=== PATIENT | female | born 1970 | race Caucasian/White ===

== ENCOUNTER → 2018-08-31 11:56 | Outpatient (CLI) | payer OTHER, SELFPAY ==
[2018-08-31 15:51] LABS: Absolute Neutrophil Count 3.5 X10^3/uL (2.0-7.7); Basophil# 0.02 X10^3/uL; Basophil% 0.3 % (0-1); Eosinophil# 0.19 X10^3/uL; Eosinophils% 3.1 % (0-5); Hemoglobin 13.6 g/dl (12.0-15.0); Lymphocyte % 32.7 % (19-41); Mean Corp Hgb Conc 32.4 g/gl (32-36); Mean Corpuscular Hgb 31.2 pg (27.0-32.0); Mean Corpuscular Volume 96.3 fL (81-99); Mean Platelet Vol. 10.7 fl (6.2-12.0); Monocyte% 6.5 % (0-10); Neutrophil # 3.51 X10^3/uL (2.7-7.7); Neutrophil % 57.4 % (47-70); Platelet Count 381 K/mm3 (150-450); RBC Distribution Width CV 12.7 % (11.6-14.6); RBC Distribution Width SD 43.9 fl (35.1-43.9); Red Blood Count 4.36 M/mm3 (4.2-5.4); White Blood Count 6.1 K/mm3 (4.4-11.0)
[2018-08-31 15:56] LABS: POSITIVE COUNT NO; POSITIVE DIFFERENTIAL NO; POSITIVE MORPHOLOGY NO
[2018-08-31 16:16] LABS: ALB/GLOB Ratio 0.8 RATIO (0.9-2.4); AST(SGOT) 19 U/L (15-37); Alanine Aminotransfer ALT/SGPT 20 U/L (13-56); Albumin, Serum 3.5 g/dL (3.2-5.0); Alkaline Phosphatase 117 U/L (45-117); Anion Gap 9 (5-15); BUN 11 mg/dL (7-18); BUN/Creat Ratio 13.1 RATIO (10-20); Chloride 102 mmol/L (98-107); Creatinine, Serum 0.84 mg/dL (0.55-1.02); EST Glomerular Filtration Rate 76 mL/min (>60); Est Glom Filt Rate - Afr Amer 92 mL/min (>60); Globulin 4.5 g/dL (2.2-4.2); Glucose 63 mg/dL (74-106); Sodium Level 138 mmol/L (136-145); Thyroid Stim Hormone (TSH) 2.47 uIU/mL (0.358-3.74)
[2018-09-04 16:07] LABS: Clam <0.10 kU/L (Class 0); Codfish <0.10 kU/L (Class 0); Corn 0.19 kU/L (Class 0/I); Egg, White 0.23 kU/L (Class 0/I); Milk (Cow) 0.53 kU/L (Class I); Peanut 0.16 kU/L (Class 0/I); SCALLOP <0.10 kU/L (Class 0); Shrimp <0.10 kU/L (Class 0); Soybean <0.10 kU/L (Class 0); Walnut, (Food) <0.10 kU/L (Class 0)
== END ==
PROVIDERS: Family Provider Family Medicine; PCP Family Medicine; Visit Provider Family Medicine
DX: R10.9 Unspecified abdominal pain (principal); K29.70 Gastritis, unspecified, without bleeding; R79.89 Other specified abnormal findings of blood chemistry; T78.40XA Allergy, unspecified, initial encounter
CPT/HCPCS: 36415; 80053; 84443; 85025; 86003

== ENCOUNTER → 2019-04-10 16:12 | Outpatient (CLI) | payer BC, SELFPAY ==
--- NOTE | 2019-04-10 16:24 | BI_ITS ---
MAMMOGRAPHY - BILATERAL SCREENING REASON FOR EXAM: Female, 49 years old. Routine annual screening examination. PERTINENT HISTORY: Non-contributory. TECHNIQUE: Digital bilateral breast kisha (3D mammographic acquisition) in the CC and MLO projections. 2-D mediolateral oblique (MLO) and craniocaudad (CC) views of both breasts were obtained. CAD: Full Field Digital Mammography with Computer Added Detection was performed. COMPARISON: Comparison is made with prior study dated December 07, 2016 and January 07, 2015. FINDINGS: Breast Composition: The breasts are heterogeneously dense, which may obscure small masses. There are no dominant masses or suspicious calcifications. Stable small bilateral axillary lymph nodes. No other significant abnormalities are identified. There has been no significant change since the prior study. BI/SCREEN MAMM (CAD) W/KISHA BILAT IMPRESSION: Stable bilateral screening mammogram. Yearly follow-up mammogram recommended. (A) ASSESSMENT CATEGORY: BIRADS Category 2: Benign. A letter regarding these results will be sent to the patient by the facility within 30 days. Approximately 10% of breast cancers are not detected by mammography. A normal mammogram should not delay biopsy of a clinically suspicious abnormality. [id number] Electronically Signed: Maciej Jensen, at 8:58 EDT , Service support ,
== END ==
PROVIDERS: Family Provider Family Medicine; PCP Family Medicine
DX: Z12.31 Encounter for screening mammogram for malignant neoplasm of breast (principal)
CPT/HCPCS: 77063; 77067

== ENCOUNTER 2020-03-17 07:57 | Day surgery (SDC) | payer OTHER, SELFPAY ==
[2020-03-17 08:15] VITALS: BP 105/74; PULSE 87; RESP 15; TEMP 36.6; O2SAT 100; BMI 27.0
[2020-03-17] MEDS: Lactated Ringers 1,000 ML 100 ML IV (08:28)
--- NOTE | 2020-03-17 08:38 | HP.PCM_ITS ---
History of Present Illness Date of Admission: 03/17/20 The patient is a 50 year old F presents for screening colonoscopy. Patient denies any previous colonoscopy, denies any family history of colon cancer. Patient does have bowel movements daily denies any blood. Denies any chronic abdominal pain nausea or vomiting. Patient is on pantoprazole for reflux she did have an EGD around 2014 and medication does not control her symptoms Past Medical/Surgical History - Planned Operation Planned Operative Procedure/s: cscope open access Date of Operative Procedure: 03/17/20 Permit Signed: No S.O.S: No Is This Patient Having a Total Joint: No - Previous Hospitalizations/Surgeries HX Hospitalizations: No HX of Surgeries: wisdom teeth Any Problems With Anesthesia: Yes - nausea You/Your Family Experience Fever (Hyperthermia) With Anes: No Cholinesterase deficiency: No - Cardiovascular Hx Chest Pain within Last 2 months: No Hx of Irregular Heartbeat and/or Afib: No Hx Heart Attack: No Hx Congestive Heart Failure: No Hx Rheumatic Fever: No Hx Hypertension: No Hx Internal Defibrillator: No Hx Pacemaker: No Hx Cardiac Catheterization: No Hx Cardiac Surgery/Stents/Etc.: No - . Hx Stress Test: Yes - 2005 HX Edema: No Hx Pain in Legs when Walking/Leg Cramps: No - Respiratory Chronic Cough: No HX of Shortness of Breath: No Hoarseness: No Hx Chronic Obstructive Pulmonary Disease (COPD): No Hx Asthma: No Hx Emphysema: No Hx Sleep Apnea: No Hx Oxygen Use at Home: No Hx Respiratory Tract Infection/Cold (presently): No Do You Snore Loudly (louder than talking or can be heard): No Do You Often Feel Tired/ Fatigued/ Sleepy Dring Daytime?: Yes Has Anyone Observed You Stop Breathing During Sleep?: No Result (for STOP score): Negative Hx Smoking: No Smoking Status: Never smoker - Gastrointestinal Hx Gastroesophageal Reflux: Yes Controlled With Meds: Yes Hx Gastrointestinal Disorders: No Hx Gastrointestinal Bleed: No Hx Ulcer: No Hx Hiatal Hernia: No Difficulty Chewing/Swallowing: No Recent Onset of Swallowing Problems: No Special diet followed at home: No Hx Unplanned Weight Loss of 20#: No HX Unplanned Weight Gain of 20#: No - Neurological Hx Seizures: No HX Syncope/Blackout Spells/Unconsciousness: No Hx CVA/Stroke: No Hx Transient Ischemic Attacks (TIA): No Hx Multiple Sclerosis: No Hx Parkinson's Disease: No Hx Head/Neck Injury: No Hx Headaches: No Hx Back Injury/Pain: No Recent Onset of Speech Difficulty: No Restless Legs: No Does patient have nerve stimulator: No Patient instructed to have device shut off: No Rep notified?: No - Blood Disorder Hx Leukemia: No Bleeding Tendencies: No Hx Deep Vein Thrombosis: No Hx High Cholesterol: No Blood Transmitted Disease: No Hx Hepatitis: No Hx Cirrhosis: No Hx Anemia: No Hx Blood Disorders: No - Reproduction : No Is Patient Lactating: No Hx Hysterectomy: No Hx Tubal Ligation: No Are You Post Menopause: No Pt Instructed Not To Have Any Sex From Now Until Surgery: No - Genitourinary Hx Renal Disease: No Hx Dialysis: No - Musculoskeletal Hx Arthritis: No Hx Rheumatoid Arthritis: No Hx Gout: No Recent Onset of an Orthopedic Problem: No - Endocrine Hx Diabetes: No Thyroid Disease: No Hx Steroid Therapy: No - Psycho/Social Hx Substance Use: No Hx Alcohol Use: Yes - occ Hx Anxiety: Yes - on med Hx Depression: Yes - on med Mental Illness: No Hx Dementia: No - Miscellaneous Hx Cancer: No Recent Exposure to Contagious Disease: No Active MRSA: No Hx of C-Diff: No Any Loose Teeth: No Allergies aspirin Allergy (Verified 03/17/20 08:09) Swelling honey Allergy (Verified 03/17/20 08:09) Swelling ibuprofen [From Motrin] Allergy (Verified 03/17/20 08:09) Swelling strawberry Allergy (Verified 03/17/20 08:09) Swelling Maternal No pertinent history - Discharge Is Pt Admitted From a Intermediate, or a Detention: No Who Could Help: family After D/C, Where Do you Plan to Go: Return Home - Physical Exam Vitals/I&O's: Vital Signs Temp Pulse Resp BP Pulse Ox 97.8 F 87 15 105/74 100 03/17/20 08:15 03/17/20 08:15 03/17/20 08:15 03/17/20 08:15 03/17/20 08:15 Oxygen Delivery Method Room Air Weight: 152 lb 12.485 oz Body Mass Index (BMI) 27.0 General: Alert, Oriented x3, Cooperative, No apparent distress HEENT: Atraumatic Lungs: Normal air movement Cardiovascular: Regular rate Abdomen: Soft, Non Tender, Non-Distended Extremities: No clubbing, No cyanosis, No edema Neurological: Cranial nerves II-XII grossly intact Psych/Mental Status: Normal Affect Current Medications Lactated Ringer's () 1,000 mls @ 100 mls/hr IV .Q10H CARMEN Last Admin: 03/17/20 08:28 Dose: 100 mls/hr Documented by: Assessment/Plan All Active Problems Abnormal CT of the abdomen (Acute) Epigastric abdominal pain (Acute) Nausea & vomiting (Acute) 50-year-old female for screening for colon cancer Surgery Risks - Colonoscopy I discussed with the patient the risks of the procedure: Yes Risks Include but are not Limited To: Risks include but are not limited to: Bleeding, perforation requiring further surgery, inability to complete colonoscopy requiring barium enema. Patient no further questions this time.
[2020-03-17 09:15] VITALS: BP 105/74; BP 111/86; PULSE 79; RESP 16; TEMP 36.5; O2SAT 99
--- NOTE | 2020-03-17 09:16 | OP.CCLET_ITS ---
03/17/2020 Krystal Kelly [address] [place] [address] Re : Colonoscopy procedure for Gloria Mellwood Dear Dr. Kelly This procedure was performed on Tuesday, March 17, 2020. My impressions and recommendations are as follows: Impressions : - Hemorrhoids found on perianal exam. - The entire examined colon is normal on direct and retroflexion views. - Diverticulosis in the sigmoid colon. - No specimens collected. Recommendations : - Discharge patient to home [Means]. - High fiber diet. - Continue present medications. - Discharge patient to home. - Repeat colonoscopy in 10 years for screening purposes. My findings are described in the full procedure note, which is enclosed. If I can be of further assistance, please feel free to contact me at Doctor phone number(s): , Work: . Sincerely, MD Beena Banuelos MD 03/17/2020 9:15:50 AM This report has been signed electronically.
--- NOTE | 2020-03-17 09:16 | OP.COLON_ITS ---
Patient Name: Gloria Mayes Procedure Date: 03/17/2020 8:49 AM Date of : 1970 Age: 50 Procedure: Colonoscopy Indications: Screening for colorectal malignant neoplasm Providers: Beena Reyes MD Referring MD: Beena Reyes MD Medicines: Monitored Anesthesia Care Patient Profile: This is a 50 year old female. Last Colonoscopy: none. The patient's first colonoscopy is today. Complications: No immediate complications. Procedure: Pre-Anesthesia Assessment: - Prior to the procedure, a History and Physical was performed, and patient medications and allergies were reviewed. The patient's tolerance of previous anesthesia was also reviewed. The risks and benefits of the procedure and the sedation options and risks were discussed with the patient. All questions were answered, and informed consent was obtained. Prior Anticoagulants: The patient has taken no previous anticoagulant or antiplatelet agents. ASA Grade Assessment: Per anesthesia. After reviewing the risks and benefits, the patient was deemed in satisfactory condition to undergo the procedure. After I obtained informed consent, the scope was passed under direct vision. Throughout the procedure, the patient's blood pressure, pulse, and oxygen saturations were monitored continuously. The Colonoscope was introduced through the anus and advanced to the cecum, identified by the appendiceal orifice, ileocecal valve and palpation. The colonoscopy was performed without difficulty. The patient tolerated the procedure well. The quality of the bowel preparation was good. Scope In: 8:57:02 AM Scope Withdrawal Time 0 hours 7 minutes 2 seconds Scope Out: 9:11:22 AM Total Procedure Duration Time 0 hours 14 minutes 20 seconds Findings: Hemorrhoids were found on perianal exam. The entire examined colon appeared normal on direct and retroflexion views. A single small-mouthed diverticulum was found in the sigmoid colon. Impression: - Hemorrhoids found on perianal exam. - The entire examined colon is normal on direct and retroflexion views. - Diverticulosis in the sigmoid colon. - No specimens collected. Recommendation: - Discharge patient to home [Means]. - High fiber diet. - Continue present medications. - Discharge patient to home. - Repeat colonoscopy in 10 years for screening purposes. Procedure Code(s): --- Professional --- G0121, PT, Colorectal cancer screening; colonoscopy on individual not meeting criteria for high risk Diagnosis Code(s): --- Professional --- Z12.11, Encounter for screening for malignant neoplasm of colon K64.9, Unspecified hemorrhoids K57.30, Diverticulosis of large intestine without perforation or abscess without bleeding CPT copyright 2017 [employer]. All rights reserved. The codes documented in this report are preliminary and upon metal machinist review may be revised to meet current compliance requirements. MD Beena Banuelos MD 03/17/2020 9:15:50 AM This report has been signed electronically. Number of Addenda: 0 Note Initiated On: 03/17/2020 8:49 AM
[2020-03-17 09:20] VITALS: BP 105/74; BP 112/62; PULSE 79; RESP 16; O2SAT 100
[2020-03-17 09:25] VITALS: BP 105/74; BP 108/72; PULSE 76; RESP 16; O2SAT 100
[2020-03-17 09:30] VITALS: BP 104/68; BP 105/74; PULSE 75; RESP 16; TEMP 36.3; O2SAT 100
[2020-03-17 10:03] VITALS: BP 105/74
== END 2020-03-17 10:09 | disposition home or self-care (01) ==
LOC: EN 08:00 → AC 08:01
PROVIDERS: PCP Family Medicine; Referring Provider Surgery; Visit Provider Surgery
PROC: 0DJD8ZZ Inspection of Lower Intestinal Tract, Via Natural or Artificial Opening Endoscopic (ICD-10-PCS; CPT 45378; principal; 2020-03-17 08:50)
DX: Z12.11 Encounter for screening for malignant neoplasm of colon (principal); K57.30 Diverticulosis of large intestine without perforation or abscess without bleeding; K64.9 Unspecified hemorrhoids; K21.9 Gastro-esophageal reflux disease without esophagitis; F41.9 Anxiety disorder, unspecified; F32.9 Major depressive disorder, single episode, unspecified; Z79.899 Other long term (current) drug therapy
CPT/HCPCS: 45378; J7120; J2405

== ENCOUNTER → 2020-04-17 | Outpatient (CLI) | payer OTHER, SELFPAY ==
--- NOTE | 2020-04-17 11:42 | BI_ITS ---
MAMMOGRAPHY - BILATERAL SCREENING REASON FOR EXAM: Female, 50 years old. Routine annual screening examination. PERTINENT HISTORY: Non-contributory. TECHNIQUE: Digital bilateral breast kisha (3D mammographic acquisition) in the CC and MLO projections. 2-D mediolateral oblique (MLO) and craniocaudad (CC) views of both breasts were obtained. CAD: Full Field Digital Mammography with Computer Added Detection was performed. COMPARISON: Comparison is made with prior study dated April 10, 2019 and December 07, 2016. FINDINGS: Breast Composition: The breasts are heterogeneously dense, which may obscure small masses. There are no dominant masses or suspicious calcifications. Stable benign-appearing bilateral axillary lymph nodes. No other significant abnormalities are identified. There has been no significant change since the prior study. BI/SCREEN MAMM (CAD) W/KISHA BILAT IMPRESSION: Stable bilateral screening mammogram. Yearly follow-up mammogram recommended. (A) ASSESSMENT CATEGORY: BIRADS Category 2: Benign. A letter regarding these results will be sent to the patient by the facility within 30 days. Approximately 10% of breast cancers are not detected by mammography. A normal mammogram should not delay biopsy of a clinically suspicious abnormality. [id number] Electronically Signed: Mcaiej Jensen, at 13:33 EDT , Service support ,
== END | disposition home or self-care (01) ==
LOC: OPBI 11:37
PROVIDERS: PCP Family Medicine
DX: Z12.31 Encounter for screening mammogram for malignant neoplasm of breast (principal)
CPT/HCPCS: 77063; 77067

== ENCOUNTER → 2020-12-01 17:25 | Outpatient (CLI) | payer OTHER, SELFPAY | PROVIDERS: PCP Family Medicine; Referring Provider Family Medicine; Visit Provider Family Medicine | DX: Z20.822 Contact with and (suspected) exposure to COVID-19 (principal) | CPT/HCPCS: 87635; C9803; U0003 ==

== ENCOUNTER 2022-01-12 16:12 | Outpatient (CLI) | payer BC, SELFPAY ==
--- NOTE | 2022-01-12 16:19 | BI_ITS ---
MAMMOGRAPHY - BILATERAL SCREENING REASON FOR EXAM: Female, 51 years old. Routine annual screening examination. PERTINENT HISTORY: Non-contributory. TECHNIQUE: Digital bilateral breast kisha (3D mammographic acquisition) in the CC and MLO projections. 2-D mediolateral oblique (MLO) and craniocaudad (CC) views of both breasts were obtained. CAD: Full Field Digital Mammography with Computer Added Detection was performed. COMPARISON: Comparison is made with prior examination dated 04/17/2020 and 04/10/2019. FINDINGS: Breast Composition: The breasts are heterogeneously dense, which may obscure small masses. There are no dominant masses or suspicious calcifications. Stable benign-appearing bilateral axillary lymph nodes. No other significant abnormalities are identified. There has been no significant change since the prior study. BI/SCRN MAMM (CAD)W/KISHA BILAT IMPRESSION: Stable bilateral screening mammogram. Yearly follow-up mammogram recommended. (A) ASSESSMENT CATEGORY: BIRADS Category 2: Benign. A letter regarding these results will be sent to the patient by the facility within 30 days. Approximately 10% of breast cancers are not detected by mammography. A normal mammogram should not delay biopsy of a clinically suspicious abnormality. [id number] Electronically Signed: Maciej Jensen MD at 8:33 EST ,
== END 2022-01-12 23:59 | disposition home or self-care (01) ==
PROVIDERS: PCP Family Medicine; Visit Provider Specialist
DX: Z12.31 Encounter for screening mammogram for malignant neoplasm of breast (principal)
CPT/HCPCS: 77063; 77067

== ENCOUNTER 2023-01-18 16:10 | Outpatient (CLI) | payer BC, SELFPAY ==
--- NOTE | 2023-01-18 16:12 | BI_ITS ---
MAMMOGRAPHY - BILATERAL SCREENING 3-D TOMOSYNTHESIS REASON FOR EXAM: Female, 52 years old. SCREENING PERTINENT HISTORY: No significant family history. TECHNIQUE: 2-D mammograms and 3-D Tomosynthesis of the breast (s) were performed. CAD was performed. COMPARISON: None. FINDINGS: The breast composition is heterogeneously dense that can obscure small breast masses. Scattered benign calcifications are seen. No dense spiculated masses or suspicious microcalcifications are identified. . There is no skin thickening or retraction. There is a more conspicuous asymmetry in the central posterior left breast along with architectural distortion since the previous study of 2019 that needs further evaluation with spot compression views and ultrasound. Right breast is stable and unchanged. BI/SCRN MAMM (CAD)W/KISHA BILAT IMPRESSION: Subtle change in architecture in the left breast with new asymmetric density in the central posterior left breast seen best on the MLO views. Further evaluation with spot compression views and ultrasound recommended ASSESSMENT CATEGORY: BIRADS Category 0: Incomplete. Need additional imaging evaluation as above. A letter regarding these results will be sent to the patient by the facility within 30 days. FOLLOW UP RECOMMENDATION: Additional imaging recommended as above. (E) Approximately 10% of breast cancers are not detected by mammography. A normal mammogram should not delay biopsy of a clinically suspicious abnormality. Electronically Signed: Teto Santos MD at 8:19 EDT ,
== END 2023-01-18 23:59 | disposition home or self-care (01) ==
PROVIDERS: PCP Family Medicine; Visit Provider Specialist
DX: Z12.31 Encounter for screening mammogram for malignant neoplasm of breast (principal)
CPT/HCPCS: 77063; 77067

== ENCOUNTER → 2023-01-27 | Outpatient (CLI) | payer BC, SELFPAY ==
--- NOTE | 2023-01-27 14:20 | BI_ITS ---
MAMMOGRAPHY - UNILATERAL DIAGNOSTIC: LEFT BREAST REASON FOR EXAM: Female, 52 years old. Abnormal screening mammogram. PERTINENT HISTORY: Non-contributory. TECHNIQUE: Compression spot views of the left breast in the mediolateral oblique and craniocaudad projections were obtained. CAD: Full Field Digital Mammography with Computer Added Detection was performed. COMPARISON: Comparison is made with prior study dated January 18, 2023. FINDINGS: Breast Composition: The breasts are heterogeneously dense, which may obscure small masses. Persistent focal architectural distortion is seen in the upper lateral aspect of the left breast. Correlation with ultrasound is recommended. No other significant abnormalities are identified. BI/DIAG MAMM W/CAD, UNILAT IMPRESSION: Persistent focal architectural distortion in the upper lateral aspect of the left breast. Correlation with ultrasound is recommended. ASSESSMENT CATEGORY: BIRADS Category 0: Incomplete. Need additional imaging evaluation. A letter regarding these results will be sent to the patient by the facility within 30 days. Approximately 10% of breast cancers are not detected by mammography. A normal mammogram should not delay biopsy of a clinically suspicious abnormality. Electronically Signed: Maciej Jensen MD at 15:13 EDT ,
--- NOTE | 2023-01-27 14:20 | US_ITS ---
STUDY: ULTRASOUND BREAST - LEFT REASON FOR EXAM: Female, 52 years old. Abnormal screening and diagnostic mammogram. TECHNIQUE: Axial and longitudinal images of the LEFT breast were performed with a high resolution ultrasound transducer. # OF IMAGES: 29 COMPARISON: Comparison is made with prior mammogram done earlier in the day. FINDINGS: LEFT Breast: The upper outer quadrant of the left breast was examined with ultrasound. No suspicious abnormality is seen. A repeat mammogram of the left breast is recommended in 4 months. US/Breast Limited Unilateral IMPRESSION: Unremarkable sonogram. ASSESSMENT CATEGORY: BIRADS Category 3: Probably Benign - Short-Interval Follow-up Suggested. A letter regarding these results will be sent to the patient by the facility within 30 days. Electronically Signed: Maciej Jensen MD at 15:47 EDT ,
== END | disposition home or self-care (01) ==
PROVIDERS: PCP Family Medicine; Visit Provider Specialist
DX: R92.8 Other abnormal and inconclusive findings on diagnostic imaging of breast (principal)
CPT/HCPCS: 76642; 77065

== ENCOUNTER 2023-05-27 20:57 | Emergency (ER) | payer BC, SELFPAY ==
[2023-05-27 20:58] VITALS: BP 103/60; PULSE 89; RESP 18; TEMP 37; O2SAT 98; BMI 28.8
--- NOTE | 2023-05-27 21:30 | CT_ITS ---
INDICATION: head trauma EXAMINATION: CT BRAIN - CT Head or Brain W/O Contrast Injection TECHNIQUE: Multiple axial images were obtained of the head without intravenous contrast. A radiation dose optimization technique was used for this scan. IV Contrast dosage and agent: None. RADIATION DOSAGE (If Supplied By Facility): CTDIvol = ( 44.99 ) mGy, DLP = ( 796.11 ) mGycm COMPARISON: FINDINGS: BRAIN: No acute bleed. No edema. Reeder-white matter differentiation is maintained. VENTRICLES AND SULCI: Not dilated. EXTRA-AXIAL: No hemorrhage, fluid collection, or mass. CALVARIUM / SKULL BASE: Unremarkable. FACE/SINUSES: Unremarkable. SOFT TISSUES: Swelling in the left posterior scalp. CT/Brain/Head without Contrast IMPRESSION: Scalp contusion. No evidence of acute intracranial injury. Electronically Signed: Tracy Mendoza MD at 22:38 EDT ,
--- NOTE | 2023-05-27 21:54 | EX.ED.GENINJ ---
HPI History of Present Illness Chief Complaint: Head Injury Informant: patient and friend Onset/Context/Timing Onset: Today and Hours Mechanism/Context: Blunt Injury and Fall Current Severity: Moderate Maximum Severity: Moderate Associated Symptoms Associated Symptoms: Negative for Parasthesias, Weakness, Loss of function, Inability to ambulate, Loss of consciousness or Amnesia Narrative Narrative: 73-year-old female was at a local [email or web address]. She was walking fell got back up fell backwards struck her head. Reportedly no LOC. The person with her though did not witness the fall. She has had pain in the back of her head and nausea and vomiting. Denies other injuries other than her tailbone. She is not on blood thinners. Prior similar symptoms: No Recent Illness/Hospitalization: No PFSH PFSH Medical History Anxiety GERD (gastroesophageal reflux disease) Home Medications [facility] - Day Tablet 1 tab PO DAILY 07/01/15 [History Last Taken 03/17/20 06:30] escitalopram oxalate 20 mg tablet 20 mg PO QHS 03/13/20 [History Last Taken Unknown] pantoprazole 20 mg tablet,delayed release 40 mg PO QHS 03/13/20 [History Last Taken Unknown] ondansetron 4 mg disintegrating tablet 4 mg PO Q6H PRN nausea and vomiting #10 tabs 05/27/23 [Rx Last Taken Unknown] Allergy/AdvReac Type Severity Reaction Status Date / Time aspirin Allergy Swelling Verified 05/27/23 21:01 honey Allergy Swelling Verified 05/27/23 21:01 ibuprofen [From Motrin] Allergy Swelling Verified 05/27/23 21:01 strawberry Allergy Swelling Verified 05/27/23 21:01 Social History Smoking Status: Never smoker ROS ROS ED ROS Narrative Posterior head pain. Nausea and vomiting. Review of Systems ROS Unobtainable: Denies due to encephalopathy Constitutional Constitutional ED: Denies chills or fever(s) Eyes Eyes: Denies blurry vision ENT ENT ED: Denies ear pain Cardiovascular Cardiovascular: Denies chest pain Respiratory/Chest Respiratory/Chest: Denies cough or dyspnea Gastrointestinal Gastrointestinal: Reports nausea and vomiting; Denies abdominal pain Genitourinary Genitourinary ED: Denies dysuria or hematuria Musculoskeletal Musculoskeletal: Denies arthralgias Integumentary Denies abscess Neurologic Neurologic: Reports headache(s) Psychiatric Psychiatric: Denies anxiety or depression Endocrine Endocrinology: Denies cold intolerance Hematologic/Lymphatic Hematologic/Lymphatic: Denies easy bleeding Allergic/Immunologic Allergic/Immunologic ED: Denies mouth swelling or tongue swelling EXAM Physical Exam Narrative Exam Narrative: 53-year-old female lying in bed. Friend at bedside. Patient is actively nausea and vomiting. HEENT exam gives reactive light. Moist mucous membranes. Posterior scalp as a moderate size hematoma about the size of a golf ball. No laceration. No blood. C-spine nontender. Trachea midline. Lungs are clear. Heart regular rhythm no murmur. Chest wall nontender. Abdomen soft nontender. Normal bowel sounds no peritoneal signs. Pelvic girdle intact. Moving all 4 extremities. Nontender no deformity. Back cervical, thoracic and proximal lumbar spine are nontender tailbone is mildly tender. No lacerations. No bruises. Neurologically she is awake and alert. Moving all 4 extremities. Answering questions and following commands. Const Vital Signs: 05/27/23 20:58 05/27/23 21:02 Temperature 98.6 F Temperature Source Temporal Pulse Rate 89 Respiratory Rate 18 Respiratory Effort Normal Non-Labored Blood Pressure 103/60 Blood Pressure Mean 74 Pulse Ox 98 Oxygen Delivery Method Room Air Positive well nourished and well developed; Negative for obese, cachectic, contractures or unkempt General Appearance ED: well developed and NAD; Negative for unkempt, cachectic or contractures Nutritional Appearance: Negative for cachectic or obese HEENT HEENT Narrative: Left posterior scalp hematoma. No laceration. trauma and tenderness; Negative for atraumatic Eyes PERRL and EOMs intact bilaterally General Eye ED: Negative for other Neck full ROM General: Negative for tenderness Chest Wall inspection of chest normal and palpation of chest normal Breast/Axilla Inspection: Negative for other Resp normal respiratory effort and clear to auscultation bilaterally Effort and Inspection: Negative for pain with movement Auscultation: Negative for rales, rhonchi or wheezes Cardio regular rhythm, S1 normal heart sound, S2 normal heart sound and no murmurs Jugular Venous Distention: Negative for other Palpation: Negative for palpable S3 Rate: regular rate Rhythm: Negative for abnormal rhythm GI normal to inspection, nondistended, normoactive bowel sounds, non-tender, non-distended and no masses Inspection: Negative for abdominal distention Auscultation: normoactive bowel sounds Palpation: soft; Negative for tender Bladder / Kidney Exam: No other Back/Spine normal to inspection and no thoracic nor lumbar tenderness Back/Spine Narrative: Except tailbone tenderness. Thoracic Spine / Upper Back: Negative for thoracic spinal tenderness Extremity normal to inspection General Extremety ED: Negative for deformity, edema or tenderness General Extremity: Negative for deformity or edema Neuro oriented x3, CN's II-XII intact bilaterally, moves all extremities, no focal motor deficits and no sensory deficits noted Surrency Coma Scale: document GCS findings Spontaneous Obeys Commands Oriented 15 Sensorium / Orientation: alert, oriented to person, oriented to place and oriented to time; Negative for orientation impaired, lethargic or stuporous Motor Exam: strength 5/5 throughout Psych mental status grossly normal and thought process normal Appearance: Negative for unkempt Attitude: No agitated Mood & Affect: Negative for depressed, anxious or tearful Skin no rashes or lesions noted, no wounds, skin turgor normal and no jaundice General Skin Exam: Negative for other Rashes: No rashes noted Trauma: Negative for abrasion Wounds: Negative for wounds noted MDM MDM MDM Narrative Medical decision making narrative: 53-year-old female fall x2 head injury with nausea and vomiting. 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 She will be treated with IV Zofran. CAT scan of her head to be obtained to rule out intracranial bleed versus concussion. Repeat exam at 10:30 PM. Patient was given a second dose of nausea medication. She is resting comfortably. We discussed her test results. She will be treated for concussion. Patient doing much better at 12:15 PM. She is awake and alert. Resting comfortably. Nausea is resolved. She will be discharged home. Head injury instructions. Zofran as needed for nausea. Motrin and Tylenol. History & Record Review Discussion w/independent historian: Patient and Friend Lab Data Lab results narrative: Alcohol level is only 7. Labs: Laboratory Results - last 24 hr 05/27/23 21:20 Ethyl Alcohol 7.0 Radiography Diagnostic Testing: Clinical Impression(s) from Imaging Studies Brain CT 05/27/23 21:30 IMPRESSION: Scalp contusion. No evidence of acute intracranial injury. Electronically Signed: Tracy Mendoza MD at 22:38 EDT , CT of the brain shows scalp contusion. No intracranial bleed. Read by the radiologist and reviewed by me. Discharge Plan Triage Chief Complaint: Head Injury ED Provider: Oneil Narayanan Dx/Rx/DC Orders Clinical Impression: Fall, Nausea & vomiting, Head injury, Coccyx contusion Instructions: ED Concussion Prescriptions: New ondansetron 4 mg tablet,disintegrating 4 mg PO Q6H PRN (Reason: nausea and vomiting) Qty: 10 0RF No Action Tri-Leg[facility] - Day Tablet 1 tab PO DAILY Patient Comments: control pantoprazole 20 MG tablet 40 mg PO QHS escitalopram oxalate 20 MG tablet 20 mg PO QHS Primary Care Provider: Krystal Kelly Referrals: Krystal Kelly DO [Primary Care Provider] - 3-5 Days Activity Restrictions/Additional Instructions: Tylenol and Motrin for pain. Zofran as needed for nausea and vomiting. You may swallow it if you are too sick to swallow or let it dissolve underneath your tongue. Follow-up with your doctor to ensure you are improving. Return to the emergency department if you are feeling worse. Disposition Disposition: Home, Self Care
[2023-05-27] MEDS: Ondansetron 4 MG/2 ML Vial IV ×2 (22:03→23:14)
[2023-05-27] MEDS: 0.9% Normal Saline 1,000 ML 999 ML IV (23:13)
[2023-05-28 00:27] VITALS: PULSE 76; RESP 16; O2SAT 98
== END 2023-05-28 00:59 | disposition home or self-care (01) ==
PROVIDERS: Emergency Provider Emergency Medicine; PCP Family Medicine; Visit Provider Emergency Medicine
DX: S06.0X0A Concussion without loss of consciousness, initial encounter (principal); S00.03XA Contusion of scalp, initial encounter; S30.0XXA Contusion of lower back and pelvis, initial encounter; W19.XXXA Unspecified fall, initial encounter
CPT/HCPCS: 70450; 82077; 96361; 96374; 96376; 99285; J7030; J2405

== ENCOUNTER → 2023-06-29 | Outpatient (CLI) | payer BC, SELFPAY ==
--- NOTE | 2023-06-29 14:16 | BI_ITS ---
MAMMOGRAPHY - UNILATERAL DIAGNOSTIC: LEFT BREAST REASON FOR EXAM: Female, 53 years old. Follow-up of left breast focal asymmetry. PERTINENT HISTORY: Non-contributory. TECHNIQUE: Digital unilateral breast robinson (3D mammographic acquisition) in the CC and MLO projections. 2-D mediolateral oblique (MLO) and craniocaudad (CC) views of the left breast was obtained. CAD: Full Field Digital Mammography with Computer Added Detection was performed. COMPARISON: Left breast diagnostic mammogram from 01/27/2023. Left breast screening mammogram from 01/18/2023. Left breast diagnostic ultrasound from 01/27/2023. FINDINGS: Breast Composition: The breast is heterogeneously dense, which may obscure small masses. Persistent focal architectural distortion is again seen in the left upper outer breast and appears unchanged from prior study on both spot compression views and diagnostic mammogram. No other significant abnormalities are identified. There has been no significant change since the prior study. BI/DIAG MAMM W/CAD, UNILAT IMPRESSION: Stable persistent focal architectural distortion in the left breast is favored to represent benign fibroglandular soft tissue. However, additional six-month diagnostic left breast mammogram is recommended to assess stability. Bilateral mammogram with diagnostic spot compression views of the left breast may also be considered as patient will be due for annual screening. Recall Side: Left Breast ASSESSMENT CATEGORY: BIRADS Category 3: Probably Benign - Short-Interval Follow-up Suggested. A letter regarding these results will be sent to the patient by the facility within 30 days. Recommendation: Follow-up 6 month diagnostic left breast mammogram. Bilateral mammogram with diagnostic spot compression views of the left breast may also be considered as patient will be due for annual screening. Approximately 10% of breast cancers are not detected by mammography. A normal mammogram should not delay biopsy of a clinically suspicious abnormality. Electronically Signed: Wild Velásquez DO at 16:03 EDT ,
== END | disposition home or self-care (01) ==
PROVIDERS: PCP Family Medicine; Referring Provider Specialist; Visit Provider Specialist
DX: R92.8 Other abnormal and inconclusive findings on diagnostic imaging of breast (principal)
CPT/HCPCS: 77061; 77065; G0279

== ENCOUNTER → 2023-08-13 | Outpatient (CLI) | payer BC, SELFPAY ==
[2023-08-13 09:54] LABS: Follicle Stimulating Hormone 15.7 mIU/mL
== END | disposition home or self-care (01) ==
LOC: LAB 08:38
PROVIDERS: PCP Family Medicine; Visit Provider Specialist
DX: N95.9 Unspecified menopausal and perimenopausal disorder (principal)
CPT/HCPCS: 36415; 83001

== ENCOUNTER → 2023-10-04 | Outpatient (CLI) | payer BC, SELFPAY ==
[2023-10-11 16:09] LABS: Clam <0.10 kU/L (Class 0); Codfish <0.10 kU/L (Class 0); Corn 0.67 kU/L (Class II); Milk (Cow) 0.54 kU/L (Class I); Peanut 1.14 kU/L (Class II); SCALLOP <0.10 kU/L (Class 0); SESAME SEED 1.05 kU/L (Class II); Shrimp <0.10 kU/L (Class 0); Soybean 0.27 kU/L (Class 0/I); Walnut, (Food) 0.22 kU/L (Class 0/I); Wheat 0.45 kU/L (Class I)
== END | disposition home or self-care (01) ==
LOC: BFHLAB 13:38
PROVIDERS: PCP Nurse Practitioner Family; Visit Provider Nurse Practitioner Family
DX: T78.40XA Allergy, unspecified, initial encounter (principal); X58.XXXA Exposure to other specified factors, initial encounter
CPT/HCPCS: 36415; 86003

== ENCOUNTER → 2023-11-25 | Outpatient (CLI) | payer OTHER, SELFPAY ==
--- OUTSIDE RECORDS SUMMARY | 2023-11-25 12:56 | XMS RPT_ITS | CCD ---
Author Name Unknown Address [address] [place] [address] Organization [facility] Care Team Providers Care Insights Manager Name Role Phone Marco Osorio Unavailable Unavailable Zarrabi, Mariella Unavailable Unavailable MOORMA, MASSIMO Unavailable Unavailable Physician, PCP Unknown Unavailable Unavailab le NO, PHYSICIAN Primary Care Unavailable MOORMA, MASSIMO H. Attending Unavailable NO, PHYSICIAN Primary Care Unavailable MOORMA, MASSIMO H. Attending Unavailable MOORMA, MASSIMO Attending Unavailable MOORMA, MASSIMO Referring Unavailable PHYSICIAN PHYSICIAN, PCP PCP UNKNOWN Primary Car e Unavailable PHYSICIAN PHYSICIAN, PCP PCP UNKNOWN Primary Car e Unavailable MOORMA, MASSIMO Attending Unavailable MOORMA, MASSIMO Referring Unavailable Allergies Allergy Classification Reported Allergen(s) Allergy Type Date of Onset Reaction(s) Facility (1 source) aspirin; Translations: [aspirin] Drug Allergy [facility] Repository (1 source) ibuprofen; Translations: [ibuprofen] Drug Allergy [facility] Repository (1 source) loratadine; Translations: [Claritin] Drug Allergy [facility] Repository (1 source) venlafaxine; Translations: [Effexor] Drug Allergy [facility] Repository Problems Problem Classification Problem Date Documented Date Episodic/Chronic Menopausal disorders (1 source) Unspecified menopausal and perimenopausal disorder; Translations: [Unspecified menopausal and perimenopausal disorder] Onset: 10-06-2022 Chronic Results Test Name Value Interpretation Reference Range Facil ity Encounters Encounter Date Encounter Type Care Provider Facility Start: 10-06-2022 ambulatory PCP PCP UNKNOW N PHYSICIAN PHYSICIAN [facility] Start: 11-27-2021 End: 11-27-2021 ambulatory PHYSICIAN LINNEA [facility] Start: 11-18-2021 ambulatory MASSIMO LONGORIA [facility] Start: 11-18-2021 Encounter for gynecological examination (general) (routine) without abnormal findings MASSIMO LONGORIA [facility] Start: 11-17-2021 End: 11-17-2021 ambulatory PHYSICIAN NO [facility] Start: 12-23-2017 End: 12-23-2017 Ambulatory Marco Osorio [facility] Start: 10-22-2017 End: 10-22-2017 Ambulatory MASSIMO MOMINMalcom Facility:[facility] Payers Date Payer Category Payer Unknown 2016 Unknown [id number] 1969 Unknown [id number] 1969 Unknown [id number] 1969 Unknown [id number] 1969 Unknown [id number] Summary Purpose Family History No Family History Records FoundNo Family History Records FoundNo Family History Records FoundNo Family History Records Found Advance Directives No Advanced Directives Records FoundNo Advanced Directives Records FoundNo Advanced Directives Records FoundNo Advanced Directives Records Found Additional Source Comments INFORMATION SOURCE (unrecogn ized section and content) DATE CREATED AUTHOR AUTHOR'S ORGANIZ ATION 05/02/2018 [facility] DATE CREATED AUTHOR AUTHOR'S ORGANIZ ATION 11/29/2021 [facility] DATE CREATED AUTHOR AUTHOR'S ORGANIZ ATION 10/07/2022 [facility] FOR RECORDS PERTAINING TO PATIENTS WHO ARE OR HAVE BEEN ENROLLED IN A CHEMICAL DEPENDENCY/SUBSTANCEABUSE PROGRAM, SOME INFORMATION MAY BE OMITTED. This clinical summary was aggregated from multiple sources. Caution should be exercised in using it in the provision of clinical care. This summary normalizes information from multiple sources, and as a consequence, information in this document may materially change the coding, format and clinical context of patient data. In addition, data may be omitted in some cases. CLINICAL DECISIONS SHOULD BE BASED ON THE PRIMARY CLINICAL RECORDS. [facility], [facility]. provides no warranty or guarantee of the accuracy or completeness of information in this document.
[2023-11-25 12:58] LABS: Erythrocyte Sedimentation Rate 14 mm/hr (0-30)
[2023-11-25 13:00] LABS: Absolute Lymphocyte Count 2.86 X10^3/uL (0.83-4.51); Absolute Neutrophil Count 4.4 X10^3/uL (2.0-7.7); Basophil# 0.06 X10^3/uL; Basophil% 0.8 % (0-1); Eosinophil# 0.17 X10^3/uL; Eosinophils% 2.2 % (0-5); Hematocrit 38.9 % (37-47); Hemoglobin 12.7 g/dL (12.0-15.0); Lymphocyte # 2.86 X10^3/ul (0.83-4.51); Lymphocyte % 36.2 % (19-41); Mean Corp Hgb Conc 32.6 g/dL (32-36); Mean Corpuscular Hgb 30.9 pg (27.0-32.0); Mean Corpuscular Volume 94.6 fL (81-99); Mean Platelet Vol. 9.8 fl (6.2-12.0); Monocyte# 0.43 X10^3/uL; Monocyte% 5.4 % (0-10); NRBC Flagged by Analyzer 0 % (0-5); Neutrophil # 4.36 X10^3/uL (2.7-7.7); Neutrophil % 55.1 % (47-70); Platelet Count 401 K/mm3 (150-450); RBC Distribution Width CV 12.6 % (11.6-14.6); RBC Distribution Width SD 43.7 fl (35.1-43.9); Red Blood Count 4.11 M/mm3 (4.2-5.4); White Blood Count 7.9 K/mm3 (4.4-11.0)
[2023-11-25 14:05] LABS: Vitamin D,25 Hydroxy 28.9 ng/mL
[2023-11-25 14:13] LABS: AST(SGOT) 12 U/L (15-37); Alanine Aminotransfer ALT/SGPT 10 U/L (13-56); Albumin, Serum 3.2 g/dL (3.2-5.0); Alkaline Phosphatase 123 U/L (45-117); BUN 11 mg/dL (7-18); Creatinine, Serum 0.97 mg/dL (0.55-1.02); EST Glomerular Filtration Rate 63 mL/min (>60); Est Glom Filt Rate - Afr Amer 77 mL/min (>60); Globulin 4.3 g/dL (2.2-4.2); Glucose 91 mg/dL (74-106); Protein, Total 7.5 g/dL (6.4-8.2); Rheumatoid Factor < 10.0 IU/mL (<15); Thyroid Stim Hormone (TSH) 2.84 uIU/mL (0.358-3.74); Uric Acid 4.1 mg/dL (2.6-6.0)
[2023-11-29 04:07] LABS: Thyroid Peroxidase AB < 9 IU/mL (0-34)
[2023-11-29 10:09] LABS: Anti-Nuclear Antibody Test Positive (.)
== END | disposition home or self-care (01) ==
PROVIDERS: PCP Nurse Practitioner Family; Referring Provider Specialist; Visit Provider Specialist
DX: T78.3XXD Angioneurotic edema, subsequent encounter (principal); E07.9 Disorder of thyroid, unspecified; E55.9 Vitamin D deficiency, unspecified; X58.XXXA Exposure to other specified factors, initial encounter
CPT/HCPCS: 36415; 80076; 82306; 82565; 82947; 83520; 84443; 84520; 84550; 85025; 85652; 86038; 86160; 86376; 86431

== ENCOUNTER → 2024-08-09 | Outpatient (CLI) | payer OTHER, SELFPAY ==
--- NOTE | 2024-08-09 16:47 | US_ITS ---
STUDY: ULTRASOUND OF THE FEMALE PELVIS - COMPLETE REASON FOR EXAM: Female, 54 years old. IRREG BLEEDING LMP: Menopause TECHNIQUE: Transabdominal and Transvaginal TECHNICAL QUALITY: Adequate. COMPARISON: None. FINDINGS: The uterus is retroverted and is in a midline position. The uterus measures 6.7 x 5.0 x 4.5 cm. Some echogenic fluid within the endocervical canal. The endometrium measures 6 mm in thickness, and is hyperechoic. There is no demonstrated endometrial mass. 2.5 cm heterogeneous isoechoic mass within the fundus the uterus consistent with an intramural fibroid. Another 1.8 cm isoechoic mass within the posterior fundus of uterus consistent with an intramural fibroid. I.U.D. - The patient does not have an I.U.D. The right ovary is visualized. The right ovary measures 2.2 x 1.5 x 1.4 cm. There is no right ovarian cyst or ovarian mass. There is no visualized right adnexal mass or complex lesion. There is normal arterial and normal venous vascularity. The left ovary is visualized. The left ovary measures 1.8 x 1.1 x 1.2 cm. There is no left ovarian cyst or ovarian mass. There is no visualized left adnexal mass or complex lesion. There is normal arterial and normal venous vascularity. There is no fluid in the cul-de-sac. The pre void volume of the bladder was ml. The post void volume of the bladder was ml. Polycystic ovary disease: No. US/Pelvic w/ Transvaginal IMPRESSION: 2 fibroids in the fundus the uterus but overall normal size of the uterus. Suspect hemorrhagic fluid in the endocervical canal. Normal ovaries. Electronically Signed: You Kulkarni MD at 13:03 EDT ,
== END | disposition home or self-care (01) ==
PROVIDERS: PCP Family Medicine; Referring Provider Specialist; Visit Provider Specialist
DX: N92.6 Irregular menstruation, unspecified (principal); Z78.0 Asymptomatic menopausal state
CPT/HCPCS: 76830; 76856

== ENCOUNTER → 2025-02-05 | Outpatient (CLI) | payer OTHER, SELFPAY ==
--- NOTE | 2025-02-05 12:20 | NM_ITS ---
PROCEDURE: GASTRIC EMPTYING STUDY 02/05/2025 REASON FOR EXAM: UNSPECIFIED ABDOMINAL PAIN COMPARISON: None. TECHNIQUE: The patient ingested a standard meal of oatmeal and water with 1.1 mCi of technetium sulfur colloid.,. There was no vomiting postprandially. Anterior and posterior planar images of the upper abdomen were obtained for 1 minute immediately following the meal at 1h, if more than 10% of the activity persisted within the stomach. Regions of interest were drawn, and a geometric mean was used to calculate a [id number]. RADIOPHARMACEUTICAL: 1.1 mCi of technetium labeled sulfur colloid. FINDINGS: Percent activity remaining in stomach: 1 hour 55% % (normal 37-90%) NM/Gastric Emptying Study IMPRESSION: Normal gastric emptying examination. Reading Location: [id number]
== END | disposition home or self-care (01) ==
PROVIDERS: PCP Family Medicine; Referring Provider Family Medicine; Visit Provider Family Medicine
DX: R10.9 Unspecified abdominal pain (principal)
CPT/HCPCS: 78264; A9541

== ENCOUNTER → 2025-02-12 | Outpatient (CLI) | payer OTHER, SELFPAY ==
[2025-02-12 16:30] LABS: Absolute Lymphocyte Count 3.01 X10^3/uL (0.83-4.51); Absolute Neutrophil Count 4.3 X10^3/uL (2.0-7.7); Basophil# 0.04 X10^3/uL; Basophil% 0.5 % (0-1); Eosinophil# 0.24 X10^3/uL; Eosinophils% 2.9 % (0-5); Hematocrit 40.6 % (37-47); Hemoglobin 13.2 g/dL (12.0-15.0); Lymphocyte # 3.01 X10^3/ul (0.83-4.51); Lymphocyte % 36.6 % (19-41); Mean Corp Hgb Conc 32.5 g/dL (32-36); Mean Corpuscular Hgb 30.3 pg (27.0-32.0); Mean Corpuscular Volume 93.1 fL (81-99); Monocyte# 0.58 X10^3/uL; NRBC Flagged by Analyzer 0 % (0-5); Neutrophil # 4.34 X10^3/uL (2.7-7.7); Neutrophil % 52.8 % (47-70); Platelet Count 404 K/mm3 (150-450); RBC Distribution Width CV 12.2 % (11.6-14.6); RBC Distribution Width SD 42.3 fl (35.1-43.9); Red Blood Count 4.36 M/mm3 (4.2-5.4); White Blood Count 8.2 K/mm3 (4.4-11.0)
[2025-02-12 17:13] LABS: ALB/GLOB Ratio 1.2 RATIO (0.9-2.4); AST(SGOT) 36 U/L (<=31); Alanine Aminotransfer ALT/SGPT 45 U/L (<=34); Albumin, Serum 4.3 g/dL (3.5-5.0); Alkaline Phosphatase 154 U/L (35-104); Anion Gap 13 (5-15); BUN 17 mg/dL (4-19); BUN/Creat Ratio 18.3 RATIO (10-20); Calcium,Total 9.8 mg/dL (7.6-11.0); Carbon Dioxide 25.8 mmol/L (21.0-32.0); Chloride 100 mmol/L (98-108); Creatinine, Serum 0.91 mg/dL (0.70-1.20); EST Glomerular Filtration Rate 74 (>60); Globulin 3.5 g/dL (2.2-4.2); Glucose 89 mg/dL (70-99); Potassium 4.3 mmol/L (3.3-5.1); Protein, Total 7.8 g/dL (5.9-8.4); Sodium Level 139 mmol/L (133-145)
== END | disposition home or self-care (01) ==
LOC: LAB 16:05
PROVIDERS: PCP Family Medicine; Referring Provider Student in an Organized Health Care Education/Training Program; Visit Provider Student in an Organized Health Care Education/Training Program
DX: R10.13 Epigastric pain (principal)
CPT/HCPCS: 36415; 80053; 85025

== ENCOUNTER → 2025-02-25 | Outpatient (CLI) | payer OTHER, SELFPAY ==
--- NOTE | 2025-02-25 07:23 | US_ITS ---
PROCEDURE: ABDOMEN LIMITED 02/25/2025 REASON FOR EXAM: EPIGASTRIC PAIN COMPARISON: None FINDINGS: Liver: Diffusely echogenic suggesting fatty infiltration. The liver measures 14.1 cm. There is a 9 mm x 8 mm x 7 mm cyst in the left lobe. There is also evidence of a 3.2 cm x 3.5 cm x 3.3 cm isoechoic nodule in the left lobe of the liver suggestive of a hemangioma. Gallbladder: No stones, sludge, wall thickening or tenderness. Common bile duct: Normal measuring it measures 2.7 mm. . Pancreas: Visualized portions are sonographically unremarkable. Other: Visualized portions of the right kidney are unremarkable. No right upper quadrant ascites. US/Abdomen Limited IMPRESSION: Fatty infiltration of the liver. Subcentimeter cyst is seen in the left lobe. 3.2 cm x 3.5 cm x 3.3 cm isoechoic nodule in the left lobe suggestive of possib le hemangioma. Reading Location: [place] [id number]
== END | disposition home or self-care (01) ==
LOC: US 07:20
PROVIDERS: PCP Family Medicine; Referring Provider Student in an Organized Health Care Education/Training Program; Visit Provider Student in an Organized Health Care Education/Training Program
DX: R10.13 Epigastric pain (principal)
CPT/HCPCS: 76705

== ENCOUNTER → 2025-04-02 | Outpatient (CLI) | payer OTHER, SELFPAY ==
--- NOTE | 2025-04-02 17:27 | CT_ITS ---
PROCEDURE: ABDOMEN/PELVIS WITH CONTRAST 04/02/2025 REASON FOR EXAM: LIVER CYSTS TECHNIQUE: Abdomen and pelvis CT with intravenous contrast. Coronal and Sagittal reconstruction series were provided. PATIENT PREPARATION: Per protocol ORAL CONTRAST TYPE: Given. CONTRAST: Isovue-300 VOLUME: 100 mL One or more dose reduction techniques were used (e.g., Automated exposure control, adjustment of the mA and/or kV according to patient size, use of iterative reconstruction technique. RADIATION DOSE SUMMARY: CTDlvol: 12 mGy DLP: 959.84 mGycm COMPARISON: Prior sonogram dated February 25, 2025. FINDINGS: Lung bases: Mild dependent atelectasis Liver: Diffuse fatty infiltration.. There is a 1 cm cyst in the medial aspect of the left lobe of the liver. There is a 2 cm hypodense nodule in the region of the caudate lobe of the liver with peripheral enhancement. There is filling of this hypodense nodule on later images suggestive of hemangioma. This corresponds to the sonographic findings. Gallbladder: Unremarkable Spleen: Normal size. Pancreas: Normal size without evidence of mass surrounding inflammation or ductal dilation. Adrenals: Unremarkable Kidneys: Normal renal sizes. No hydronephrosis. Bladder: Unremarkable Reproductive Organs: Normal uterine size and contour. Ovaries are unremarkable. Bowel: Scattered sigmoid diverticula. Appendix: Unremarkable Lymph nodes: Unremarkable. Vasculature: The abdominal aorta and IVC are normal. Peritoneum / Retroperitoneum: Unremarkable Bones: Unremarkable CT/Abdomen/Pelvis WITH Contrast IMPRESSION: Fatty infiltration of the liver. Small cyst in the left lobe of the liver as well as a hemangioma in the region of the caudate lobe of the liver. OVERALL FINAL ASSESSMENT: . LI-RADS is not meant to be used in patients <18 years or patients with cirrhosi s due to congenital hepatic fibrosis or due to vascular disorders, because these patients have a lower chance of developing HC C. Reading Location: [facility]
== END | disposition home or self-care (01) ==
LOC: CT 17:26
PROVIDERS: PCP Family Medicine; Referring Provider Student in an Organized Health Care Education/Training Program; Visit Provider Student in an Organized Health Care Education/Training Program
DX: R10.13 Epigastric pain (principal); K76.89 Other specified diseases of liver
CPT/HCPCS: 74177; Q9967

== ENCOUNTER 2025-04-24 11:07 | Day surgery (SDC) | payer OTHER, SELFPAY ==
[2025-04-24] VITALS (8 sets, daily range): BP systolic 74–109; BP diastolic 54–70; PULSE 68–80; RESP 12–16; TEMP 36.1–36.6; O2SAT 91–98; BMI 27.3
--- NOTE | 2025-04-24 11:22 | PCM.HP.STD ---
HPI - General General Date of Admission: 04/24/25 Date of Service: 04/24/25 Chief Complaint: Abdominal pain HPI Narrative Chief Complaint: epigastric pain [facility] admission 2014 with acute pancreatitis and duodenitis. RAST food allergy 10.04.23: corn class II, cows milk class I, egg white class 0/I, peanut class II, sesame seed class II, soybean 0/I, walnut class 0/I, wheat class I, Colonoscopy 03.17.20: - Hemorrhoids found on perianal exam. - The entire examined colon is normal on direct and retroflexion views. - Diverticulosis in the sigmoid colon. - No specimens collected. Pt has been having ongoing epigastric pain since her 20s. Over time, it has increased in frequency and severity. In 2014, she was hospitalized for acute pancreatitis and duodenitis. She has been on PPIs every since but recently she discontinued it after tapering it down. She now takes famotidine which she does not think works as well. Her pain is stabbing and in the epigastric region. She will take Benadryl when this happens which relieves her pain within 30 minutes. It is typically worse after eating. She has identified numerous foods that lead to these symptoms including protein drinks, tomatoes and strawberries. [facility] Medical History Wears glasses Depression Alcohol use Fatty liver Injury of head and neck Loss of consciousness Blackout Non-smoker History of stress test GERD (gastroesophageal reflux disease) Anxiety Home Medications ?Medication ?Instructions ?Recorded ?Last Taken ?Type escitalopram oxalate 20 mg tablet 20 mg PO QHS 03/13/20 Unknown History buspirone 5 mg tablet 5 mg PO BID 02/12/25 Unknown History aeyvylbk-mky-lrdff acid 0.4 1 tab PO QDAY 02/12/25 Unknown History mg-lycopene 300 mcg-lutein 250 mcg tablet (Centrum Silver) pantoprazole 40 mg tablet,delayed 40 mg PO DAILY 04/22/25 Unknown History release vitamin B complex (Vitamins B 1 tab PO QHS 04/22/25 Unknown History Complex tablet) Allergy/AdvReac Type Severity Reaction Status Date / Time aspirin Allergy Swelling Verified 04/22/25 10:56 honey Allergy Swelling Verified 04/22/25 10:56 ibuprofen (From Motrin) Allergy Swelling Verified 04/22/25 10:56 strawberry Allergy Swelling Verified 04/22/25 10:56 Surgical History History of esophagogastroduodenoscopy (EGD) Hx of colonoscopy Social History Smoking Status: Never smoker ROS Constitutional Constitutional: Denies fatigue, fever(s), poor appetite, weight gain or weight loss Gastrointestinal Gastrointestinal: Denies belching, bloating, change in bowel habits, change in stool character, chewing difficulty, coffee ground emesis, constipation, cramping, diarrhea, dyspepsia, dysphagia, early satiety, excessive flatus, fecal incontinence, heartburn, hematemesis, hematochezia, hemorrhoids, loose stools, melena, nausea, odynophagia, rectal bleeding, tenesmus, vomiting or weight changes Physical Exam Const alert, oriented x3, no apparent distress and healthy appearing General Appearance: cooperative GI normal to inspection, nondistended, normoactive bowel sounds, soft to palpation, non-tender and non-distended Percussion: normal to percussion Rectal Exam: deferred Assessment & Plan Assessment/Plan (1) Epigastric abdominal pain: (2) Nausea & vomiting: PLAN: Assessment and Plan Assessment and Plan (1) Abdominal symptoms: (2) Epigastric abdominal pain: Status: Acute Plan: This is a 54 yo female pt here for evaluation of epigastric pain x30 years. Pt has a PMHx of acute pancreatitis and duodenitis in 2015. She has been on PPI every since this hospitalization until recently when she discontinued it. The frequency and severity of her symptoms has increased. She will undergo EGD to assess her upper GI tract to rule out inflammation. I will also order blood work with CMP and CBC. I will order RUQ US to assess her biliary structures and ducts. She is agreeable to this plan. -RUQ US -EGD -CMP and CBC Orders: Orders Gallbladder Today R10.13 - Epigastric pain Comprehensive Metabolic Profil Today R10.13 - Epigastric pain CBC W/Diff, Automated Today R10.13 - Epigastric pain Medications: Discontinued ondansetron Discontinued Reason: Pt no longer taking 4 mg PO Q6H PRN 10 tabs 0RF nausea and vomiting
[2025-04-24] MEDS: Lactated Ringers 1,000 ML 15 ML IV (11:31)
--- NOTE | 2025-04-24 12:04 | PCM.PRE.AN2 ---
ASA Classification* ASA Classification ASA Classification: 2 Assessment & Plan Anesthesia* Anesthesia Assessment Anesthesia Assessment: Discussed sedation and/or anesthesia options, risks, benefits, and alternatives with patient/parents/legal guardian/POA. Questions invited. The patient/parents/legal guardian/POA seems to understand and agrees to proceed with anesthesia plan. Reviewed the physical assessment, medical history, allergy history and patient home medications list prior to surgery/procedure/anesthetic and documented any changes. Performed airway and anesthesia risk assessments. Anesthesia Type Anesthesia Type: MAC History Source History Obtained from:: Patient and Chart Anesthesia Focused Assessment* Temperature: 97.1 F Pulse Rate: 80 Blood Pressure: 109/70 Respiratory Rate: 16 Pulse Ox: 96 Oxygen Delivery Method: Room Air Airway Assessment Mouth opens: >3 cm Mallampati Score: II Teeth Condition: Intact Neck Range of motion (ROM): Full ROM Labs Anesthesia Preop lab: CBC WBC 8.2 K/mm3 (4.4-11.0) 02/12/25 16:07 02/12/25 RBC 4.36 M/mm3 (4.2-5.4) 02/12/25 16:07 02/12/25 Hgb 13.2 g/dL (12.0-15.0) 02/12/25 16:07 02/12/25 Hct 40.6 % (37-47) 02/12/25 16:07 02/12/25 Plt Count 404 K/mm3 (150-450) 02/12/25 16:07 02/12/25 CHEMISTRY Potassium 4.3 mmol/L (3.3-5.1) 02/12/25 16:07 02/12/25 Sodium 139 mmol/L (133-145) 02/12/25 16:07 02/12/25 Magnesium 1.8 mg/dL (1.8-2.4) 07/02/15 05:20 07/02/15 Phosphorus 2.7 mg/dL (2.5-4.9) 07/02/15 05:20 07/02/15 BUN 17 mg/dL (4-19) 02/12/25 16:07 02/12/25 Creatinine 0.91 mg/dL (0.70-1.20) 02/12/25 16:07 02/12/25 Glucose 89 mg/dL (70-99) 02/12/25 16:07 02/12/25 TSH 2.84 uIU/mL (0.358-3.74) 11/25/23 12:38 11/25/23 COAG Pre-Assessment Diagnosis/Proposed Procedure Planned Operative Procedure(s): EGD Anesthesia History Anesthesia History - clinical manager: Anesthesia History - clinical manager Hx Hospitalization No 04/22/25 11:00 Any Problems With Anesthesia No 04/22/25 11:00 Cholinesterase deficiency No 04/22/25 11:00 You/Your Family Experience No 04/22/25 11:00 fever (hyperthermia) with Relationship Recent Exposure to Contagious No 04/24/25 11:24 Disease Does patient have nerve No 04/22/25 11:00 stimulator Patient instructed to have device shut off --Does patient have Pacemaker No 04/24/25 11:24 or ICD? When Was Last Pacemaker Check QUESTION #4 FULL TEXT: You/Your Family Experience fever (hyperthermia) with Anesthesia Last Oral Intake Last Oral intake: Last Oral Intake NPO since 19:00 04/24/25 11:24 Meds taken in AM with sips of Yes 04/24/25 11:24 water? Meds patient instructed to 0615 04/24/25 11:24 take am of surgery protonix, buspar Any additional information?: Yes NPO since: 07:15 (Patient had black coffee up till 7:15 AM.) Meds taken in AM with sips of water?: Yes PONV PONV - clinical manager: PONV - clinical manager Female Yes 04/22/25 11:00 HX of Motion Sickness Yes 04/22/25 11:00 HX of N/V After Surgery No 04/22/25 11:00 Non-Smoker Yes 04/22/25 11:00 Duration of Surgery greater No 04/22/25 11:00 than 60 minutes Number of Risk Factors 3 04/22/25 11:00 PONV Score Moderate Risk 04/22/25 11:00 Height & Weight Height & Weight: Anesthesia: Height & Weight Height 5 ft 2.99 in 04/24/25 11:24 Weight: 70 kg 04/24/25 11:24 Body Mass Index (BMI) 27.3 04/24/25 11:24 Respiratory Assessment Respiratory Assessment - clinical manager: Respiratory Tract Infection Hx - clinical manager Hx Respiratory Tract Infection No 04/22/25 11:00 STOP Sleep Apnea STOP Sleep Apnea - clinical manager: STOP Sleep Apnea - clinical manager Hx Hypertension No 04/22/25 11:00 Hx Sleep Apnea No 04/22/25 11:00 CPAP BIPAP Do you snore loudly (louder No 04/22/25 11:00 than talking or can be heard Do you often feel tired/ Yes 04/22/25 11:00 fatigued/ sleepy during daytime? Has anyone observed you stop No 04/22/25 11:00 breathing during sleep? STOP Results Negative 04/22/25 11:00 QUESTION #5 FULL TEXT : Do you snore loudly (louder than talking or can be heard through closed doors)? 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 Specify any problems Hx of Preganancy in last 3 No 04/22/25 11:00 Months Nurse Filling Out Transfusion DSCHRIBER 04/22/25 11:00 & Questions: Date: 04/22/25 04/22/25 11:00 Time: 11:02 04/22/25 11:00 Patient unable to answer at this time (ie. confused, unrespo /Reproduction History /Reproductive History - clinical manager: /Reproductive Hx- clinical manager Hx Now No 04/22/25 11:00 Gestational Age (in weeks): EDC: Hx Hx Para Hx Section SAB No 04/22/25 11:00 Active Medications Active Medications: Current Medications Generic Name Dose Route Start Last Admin Trade Name Freq PRN Reason Stop Dose Admin Lactated Ringer's 1,000 mls @ 15 mls/hr 04/24/25 11:15 04/24/25 11:31 IV 15 mls/hr .Q48H CARMEN Administration PFSH Medical History Wears glasses Depression Alcohol use Fatty liver Injury of head and neck Loss of consciousness Blackout Non-smoker History of stress test GERD (gastroesophageal reflux disease) Anxiety Home Medications ?Medication ?Instructions ?Recorded ?Last Taken ?Type escitalopram oxalate 20 mg tablet 20 mg PO QHS 03/13/20 Unknown History buspirone 5 mg tablet 5 mg PO BID 02/12/25 04/24/25 06:15 History xfvggfyh-lbp-xeypl acid 0.4 1 tab PO QDAY 02/12/25 Unknown History mg-lycopene 300 mcg-lutein 250 mcg tablet (Centrum Silver) pantoprazole 40 mg tablet,delayed 40 mg PO DAILY 04/22/25 04/24/25 06:15 History release vitamin B complex (Vitamins B 1 tab PO QHS 04/22/25 Unknown History Complex tablet) Allergy/AdvReac Type Severity Reaction Status Date / Time aspirin Allergy Swelling Verified 04/22/25 10:56 honey Allergy Swelling Verified 04/22/25 10:56 ibuprofen (From Motrin) Allergy Swelling Verified 04/22/25 10:56 strawberry Allergy Swelling Verified 04/22/25 10:56 Surgical History History of esophagogastroduodenoscopy (EGD) Hx of colonoscopy Social History Smoking Status: Never smoker Review of Systems (Anesthesia) ROS Narrative System reviewed and no additional complaints, except as documented.
--- NOTE | 2025-04-24 12:15 | EGD_PTH ---
PATIENT: EVELIA MICHELE LOC: EN U#:[id number] AGE/SX: 55/F ROOM: RE04/24/[address]: Dr. Matty Rodríguez DO : 1970 BED: DIS: 04/24/2025 SPEC #: [id number] RECD: 04/24/25 14:54 STATUS: DONTA RERock #: [id number] MARCIAL: 04/24/25 12:[address]: Matty Rodríguez DEPT: SURGICAL PATHOLOGY RECD BY: Tuan Conner ENTERED: 04/24/25 15:05 SP TYPE: EGD BIOPSY JOLIE DR: Dr. Krystal Kelly DO Tissues: A - Esophagus, NOS B - Stomach, NOS Procedures: Surgery Specimen Level IV HEADER OPERATION: EGD and biopsy and polypectomy PRE-OP DIAGNOSIS: Nausea/vomiting, epigastric pain TISSUE SUBMITTED: A- Distal esophagus biopsy, B- Greater curvature gastric polyp MICROSCOPIC DIAGNOSIS A. Distal esophagus, biopsy: Squamous mucosa with reactive changes and up to 8 eosinophils per high power field. Columnar mucosa negative for goblet cell metaplasia. B. Greater curvature, gastric polyp, biopsy: Fundic gland polyp. MICROSCOPIC DESCRIPTION Slides are reviewed. GROSS DESCRIPTION A. Received in fixative is one container labeled with the patient's name and designated Distal esophagus biopsy. The specimen consists of two irregular fragments of light yeh soft tissue that in aggregate measure 0.4 and 0.5 cm. The specimen is totally submitted in one cassette. B. Received in fixative is one container labeled with the patient's name and designated Greater curvature gastric polyp. The specimen consists of two pieces collectively measuring 1.5 x 1.0 x 0.6cm. Each piece is bisected. The specimen is totally submitted in one cassette. Lakshmi 04/24/2025 CPT:90587w5
--- NOTE | 2025-04-24 12:40 | OP.EGD_ITS ---
Patient Name: Gloria Mayes Procedure Date: 04/24/2025 12:14 PM Date of : 1970 Age: 55 Procedure: Upper GI endoscopy Indications: Suspected esophageal reflux Providers: Matty Rodríguez DO Referring MD: Krystal Kelly Medicines: Monitored Anesthesia Care Patient Profile: This is a 55 year old female. Refer to note in patient chart for documentation of history and physical. Patient has symptoms of acute epigastric abdominal pain. Complications: No immediate complications. Procedure: Pre-Anesthesia Assessment: - Prior to the procedure, a History and Physical was performed, and patient medications and allergies were reviewed. The patient is competent. The risks and benefits of the procedure and the sedation options and risks were discussed with the patient. All questions were answered and informed consent was obtained. Patient identification and proposed procedure were verified by the physician in the pre-procedure area. Mental Status Examination: alert and oriented. Airway Examination: normal oropharyngeal airway and neck mobility. Respiratory Examination: clear to auscultation. CV Examination: normal. Prophylactic Antibiotics: The patient does not require prophylactic antibiotics. Prior Anticoagulants: The patient has taken no anticoagulant or antiplatelet agents except for NSAID medication. ASA Grade Assessment: II - A patient with mild systemic disease. After reviewing the risks and benefits, the patient was deemed in satisfactory condition to undergo the procedure. The anesthesia plan was to use monitored anesthesia care (MAC). Immediately prior to administration of medications, the patient was re-assessed for adequacy to receive sedatives. The heart rate, respiratory rate, oxygen saturations, blood pressure, adequacy of pulmonary ventilation, and response to care were monitored throughout the procedure. The physical status of the patient was re-assessed after the procedure. After obtaining informed consent, the endoscope was passed under direct vision. Throughout the procedure, the patient's blood pressure, pulse, and oxygen saturations were monitored continuously. The Endoscope was introduced through the mouth, and advanced to the second part of duodenum. The upper GI endoscopy was accomplished without difficulty. The patient tolerated the procedure well. Scope In: 12:24:25 PM Scope Out: 12:31:04 PM Total Procedure Duration Time 0 hours 6 minutes 39 seconds Findings: The Z-line was irregular and was found 40 cm from the incisors. Biopsies were taken with a cold forceps for histology. Verification of patient identification for the specimen was done. Estimated blood loss was minimal. Multiple hyperplastic polyps with no bleeding and no stigmata of recent bleeding were found in the entire examined stomach. The polyp was removed with a hot snare. Resection and retrieval were complete. Verification of patient identification for the specimen was done. Estimated blood loss was minimal. No gross lesions were noted in the first portion of the duodenum. Impression: - Z-line irregular, 40 cm from the incisors. Biopsied. - Multiple gastric polyps. Resected and retrieved. - No gross lesions in the first portion of the duodenum. Recommendation: - Discharge patient to home. - Resume previous diet. - Continue present medications. - Await pathology results. - For multiple gastric polyps found during an upper endoscopy, the primary recommendation is to have the largest polyp removed entirely and obtain union representative biopsies from the remaining polyps. This approach helps determine the nature of the polyps (e.g., hyperplastic, adenomatous) and assess the risk of dysplasia or cancer. Further management, including surveillance or additional interventions, will depend on the polyp type and pathology results. Procedure Code(s): --- Professional --- 74361, Esophagogastroduodenoscopy, flexible, transoral; with removal of tumor(s), polyp(s), or other lesion(s) by snare technique 76341, 59,51, Esophagogastroduodenoscopy, flexible, transoral; with biopsy, single or multiple CPT copyright 2021 [employer]. All rights reserved. The codes documented in this report are preliminary and upon bonderizer review may be revised to meet current compliance requirements. Matty Rodríguez DO 04/24/2025 12:40:22 PM This report has been signed electronically. Number of Addenda: 0 Note Initiated On: 04/24/2025 12:14 PM
--- NOTE | 2025-04-24 12:40 | OP.CCLET_ITS ---
04/24/2025 Krystal Kelly [address] [place] [address] Re : Upper GI endoscopy procedure for Gloria Mayes Dear Dr. Kelly This procedure was performed on Thursday, April 24, 2025. My impressions and recommendations are as follows: Impressions : - Z-line irregular, 40 cm from the incisors. Biopsied. - Multiple gastric polyps. Resected and retrieved. - No gross lesions in the first portion of the duodenum. Recommendations : - Discharge patient to home. - Resume previous diet. - Continue present medications. - Await pathology results. - For multiple gastric polyps found during an upper endoscopy, the primary recommendation is to have the largest polyp removed entirely and obtain franchise sales representative biopsies from the remaining polyps. This approach helps determine the nature of the polyps (e.g., hyperplastic, adenomatous) and assess the risk of dysplasia or cancer. Further management, including surveillance or additional interventions, will depend on the polyp type and pathology results. My findings are described in the full procedure note, which is enclosed. If I can be of further assistance, please feel free to contact me at . Sincerely, Matty Rodríguez DO 04/24/2025 12:40:22 PM This report has been signed electronically.
--- NOTE | 2025-04-24 12:43 | PCM.POST.ANE ---
Anesthesia: Postop Eval I Current Vital Signs Temperature: 97 F Pulse Rate: 68 Blood Pressure: 79/59 Respiratory Rate: 16 Pulse Ox: 97 Oxygen Delivery Method: Room Air Assessment Airway patent: Yes Spontaneous unlabored respirations: Yes Mental status: Asleep nausea: No Vomiting: No Anesthesia Complication: No Fluid Hydration Crystalloid volume administer (ml): 300 Total IV fluid infused: 300 Progress Note Anesthesia document: Postop Eval 1 completed: Yes
--- NOTE | 2025-04-24 16:16 | PCM.POSTANE2 ---
Anesthesia Postop Eval I Sum Postop Eval Completion status Anesthesia document: Postop Eval 1 completed: Yes Anesthesia Postop Eval I Summary Anesthesia Postop Eval I Summary: Anesthesia Postop Eval I: Assessment Summary Airway patent Yes 04/24/25 12:44 [email or web address] Spontaneous unlabored Yes 04/24/25 12:44 [email or web address] respirations Mental status Asleep 04/24/25 12:44 [email or web address] nausea No 04/24/25 12:44 [email or web address] Vomiting No 04/24/25 12:44 [email or web address] Anesthesia Postop Eval I: Fluid Summary Crystalloid volume administer 300 04/24/25 12:44 [email or web address] (ml) Colloids volume administered ( ml) Blood Product volume administered (ml) Total IV fluid infused 300 04/24/25 12:44 [email or web address] Anesthesia Postop Eval I: Summary Notes Anesthesia Complication No 04/24/25 12:44 [email or web address] Anesthesia Complication Comment: Post-operative progress note Anesthesia: Postop Eval II Evaluation Mental status: Awake Pain Level: 0 nausea: No Vomiting: No
== END 2025-04-24 13:15 | disposition home or self-care (01) ==
LOC: EN 11:11 → AC 11:12
PROVIDERS: PCP Family Medicine; Referring Provider Family Medicine; Visit Provider Internal Medicine Gastroenterology
PROC: 0DJ08ZZ Inspection of Upper Intestinal Tract, Via Natural or Artificial Opening Endoscopic (ICD-10-PCS; CPT 43235; principal; 2025-04-24 12:10)
DX: K31.7 Polyp of stomach and duodenum (principal); K21.9 Gastro-esophageal reflux disease without esophagitis; F41.9 Anxiety disorder, unspecified; Z79.899 Other long term (current) drug therapy
CPT/HCPCS: 43251; 43239; 88305; J2405

== ENCOUNTER → 2025-08-23 | Outpatient (CLI) | payer OTHER, SELFPAY ==
--- OUTSIDE RECORDS SUMMARY | 2025-08-23 16:23 | XMS RPT_ITS | CCD ---
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 Krystal Kelly DO Primary Care Provider Dr. Krystal Kelly DO Attending Provider Dr. Krystal Kelly DO Referring Provider Carla Roa Attending Provider Carla Roa Referring Provider Dr. Matty Rodríguez DO Attending Provider Dr. Matty Rodríguez DO Other Provider Malys, Krystal Primary Care Unavailable Malys, Krystal Referring Unavailable Carla Borja Attending Unavailable Carla Borja Attending Unavailable Malys, Krystal Referring Unavailable Malys, Krystal Primary Care Unavailable Malys, Krystal Referring Unavailable Malys, Krystal Primary Care Unavailable Matty Rodríguez Consulting Unavailable Matty Rodríguez Attending Unavailable Carla Borja Referring Unavailable Malys, Krystal Primary Care Unavailable Carla Borja Attending Unavailable Carla Borja Referring Unavailable Malys, Krystal Primary Care Unavailable Carla Borja Attending Unavailable Carla Borja Referring Unavailable Malys, Krystal Primary Care Unavailable Carla Borja Attending Unavailable Malys, Krystal Primary Care Unavailable Malys, Krystal Attending Unavailable Malys, Krystal Referring Unavailable JOSUE LONGORIAIN Attending Unavailable MOORMAJOSUEIN Referring Unavailable Malys, Krystal Primary Care Unavailable Malys, Krystal Referring Unavailable Malys, Krystal Primary Care Unavailable Friend, Matty Attending Unavailable Allergies Allergy Classification Reported Allergen(s) Allergy Type Date of Onset Reaction(s) Facility (13 sources) aspirin; Translations: [aspirin] Drug Allergy 03-17-2020 [facility] Repository (13 sources) ibuprofen; Translations: [ibuprofen] Drug Allergy 03-17-2020 [facility] Repository (1 source) loratadine; Translations: [Claritin] Drug Allergy [facility] Repository (1 source) venlafaxine; Translations: [Effexor] [facility] Honey Allergy to substance 03-17-2020 [facility] (11 sources) strawberry allergenic extract Drug Allergy 03-17-2020 [facility] (1 source) Honey Drug allergy (disorder) 04-22-2025 [facility] Repository (1 source) strawberry allergenic extract Drug Allergy 04-22-2025 [facility] Repository Medications Current Medications Medication Drug Class(es) Dates Sig (Normalized) Sig (Original) busPIRone hydrochloride 5 mg oral tablet (5 sources) Start: 02-12-2025 take 1 tablet by mouth twice daily Buspirone 5 mg tablet Active 5 mg PO TWICE A DAY February 12, 2025 12:00am dicyclomine hydrochloride 10 mg oral capsule (1 source) Anticholinergic Start: 05-08-2025 take 1 capsule by mouth twice daily Dicyclomine 10 mg capsule Active 10 mg PO TWICE A DAY 60 May 08, 2025 12:00am escitalopram 20 mg oral tablet (20 sources) Serotonin Reuptake Inhibitor Start: 07-03-2015 End: 03-13-2020 take 1 tablet by mouth at bedtime Escitalopram Oxalate 20 MG tablet Active 20 mg PO AT BEDTIME March 13, 2020 12:47pm Start: 07-01-2015 End: 07-03-2015 take 1 tablet by mouth once daily Escitalopram Oxalate 10 MG tablet Discontinued 10 mg PO DAILY July 01, 2015 12:00am July 03, 2015 2:21pm Rnpvpaqx-Aoc-Wh-Lycopen-Lute in (Centrum Silver) 0.4 mg-300 mcg- 250 mcg tablet (5 sources) Start: 02-12-2025 take 1 tablet by mouth once daily Pqnokkel-Kpx-Zc-Lycopen-Lutein (Centrum Silver) 0.4 mg-300 mcg- 250 mcg tablet Active 1 {tbl} PO daily February 12, 2025 12:00am pantoprazole 40 mg delayed release oral tablet (20 sources) Lorie n Pump Inhib itor Start: 04-22-2025 take 1 tablet by mouth once daily Pantoprazole 40 mg tablet,delayed release (DR/EC) Active 40 mg PO DAILY April 22, 2025 12:00am Start: 03-13-2020 End: 02-12-2025 take 2 tablets by mouth at bedtime Pantoprazole 20 MG tablet Discontinued 40 mg PO AT BEDTIME March 13, 2020 1:00pm February 12, 2025 3:20pm Start: 03-13-2020 take 40 mg by mouth at bedtime Pantoprazole Active 40 MG PO AT BEDTIME March 13, 2020 12:00pm Start: 07-03-2015 End: 03-13-2020 take 1 tablet by mouth twice daily Pantoprazole 20 MG tablet Discontinued 20 mg PO TWICE A DAY 60 0 July 03, 2015 12:00am March 13, 2020 12:47pm Tri-Legest Fe-28 Day Tablet (11 sources) Start: 07-01-2015 take 1 tablet by mouth once daily Tri-Legest Fe-28 Day Tablet Active 1 TABLET PO DAILY July 01, 2015 5:57am Start: 07-01-2015 End: 02-12-2025 Tri-Legest Fe-28 Day Tablet Discontinued 1 {tbl} PO DAILY July 01, 2015 12:00am February 12, 2025 3:20pm Start: 07-01-2015 Tri-Legest Fe- 28 Day Tablet Active 1 {tbl} PO DAILY July 01, 2015 12:00am Start: 07-01-2015 take 1 tablet by rose th once daily Tri-Legest Fe-28 Day Tablet Active 1 TABLET PO DAILY June 30, 2015 11:00pm Start: 07-01-2015 take 1 tablet by rose th once daily Tri-Legest Fe-28 Day Tablet Active 1 TABLET PO DAILY July 01, 2015 12:00am Vitamin B Complex (Vitamins B Complex) tablet (2 sources) Start: 04-22-2025 Vitamin B Comp pramod (Vitamins B Complex) tablet Active 1 {tbl} PO AT BEDTIME April 22, 2025 12:00am Completed/Discontinued Medications Medication Drug Class(es) Dates Sig (Normalized) Sig (Original) famotidine 40 mg oral tablet (5 sources) Histamine-2 Receptor Antagonist Start: 02-12-2025 End: 04-22-2025 take 1 tablet by mouth twice daily Famotidine 40 mg tablet Discontinued 40 mg PO TWICE A DAY February 12, 2025 12:00am April 22, 2025 10:57am Lactobacillus Combination No.4 (Probiotic) 3 billion cell capsule (5 sources) Start: 02-12-2025 End: 04-22-2025 take 3 capsules by mouth once daily Lactobacillus Combination No.4 (Probiotic) 3 billion cell capsule Discontinued 3000 NMA PO daily February 12, 2025 12:00am April 22, 2025 10:57am administer with a meal Start: 02-12-2025 take 3 capsules by m outh once daily Lactobacillus Combination No.4 (Probiotic) 3 billion cell capsule Active 3000 NMA PO daily February 12, 2025 12:00am administer with a meal ondansetron 4 mg disintegrating oral tablet (9 sources) Serotonin-3 Receptor Antagonist Start: 05-27-2023 End: 02-12-2025 take 1 tablet by mouth every six hours as needed for nausea and vomiting Ondansetron 4 mg tablet,disintegrating Discontinued 4 mg PO EVERY 6 HOURS as needed for nausea and vomiting 10 0 May 27, 2023 12:00am February 12, 2025 3:20pm Problems Problem Classification Problem Date Documented Da te Episodic/Chronic Abdominal pain (20 sources) Epigastric pain; Translations: [Epigastric pain] Onset: 04-05-2025 07-03-2015 Episodic Anxiety disorders (11 sources) Mixed anxiety and depressive disorder; Translations: [Anxiety disorder, unspecified] 07-03-2015 Chronic E Codes: Fall (9 sources) Fall; Translations: [Unspecified fall, initial encounter] 06-05-2023 Episodic Menopausal disorders (1 source) Unspecified menopausal and perimenopausal disorder; Translations: [Unspecified menopausal and perimenopausal disorder] Onset: 10-06-2022 Chronic Menstrual disorders (1 source) Irregular menstruation, unspecified; Translations: [Irregular menstruation, unspecified] Onset: 09-08-2024 Chronic Miscellaneous mental health disorders (11 sources) Self-induced vomiting; Translations: [Other specified eating disorder] 07-03-2015 Chronic Nausea and vomiting (20 sources) Nausea and vomiting; Translations: [Nausea with vomiting, unspecified] Onset: 05-07-2025 07-03-2015 Episodic Other gastrointestinal disorders (5 sources) Finding of abdomen; Translations: [Other specified symptoms and signs involving the digestive system and abdomen] 02-12-2025 Episodic Other injuries and conditions due to external causes (9 sources) Injury of head; Translations: [Unspecified injury of head, initial encounter] 06-05-2023 Episodic Other liver diseases (3 sources) Liver cyst; Translations: [Other specified diseases of liver] 03-04-2025 Chronic Other screening for suspected conditions (not mental disorders or infectious disease) (11 sources) CT of abdomen abnormal; Translations: [Abnormal findings on diagnostic imaging of other abdominal regions, including retroperitoneum] 07-03-2015 Episodic Superficial injury; contusion (9 sources) Contusion of coccyx; Translations: [Contusion of lower back and pelvis, initial encounter] 06-05-2023 Episodic Results Test Name Value Interpretation Reference Range Facility Gastroenterology Visit Repor ton 05-08-2025 Gastroenterology Visit Report [facility] [address] [place] [address] OFFICE VISIT Date of Service: 05/08/25 MR#: [id number] Acct: [id number] Name: GLORIA MAYES Rep #: [id number] : 1970 Provider: CAROLINE Miranda Age/Sex: 55/F Location: [facility] [place] Status: Signed Intake Vital Signs 05/27/23 20:58 04/24/25 11:24 Height 5 ft 3 in 5 ft 2.99 in Intake Visit Reasons: Test Result Chief Complaint: epigastric pain Allergies aspirin Allergy (Verified 04/22/25 10:56) Swelling honey Allergy (Verified 04/22/25 10:56) Swelling ibuprofen (From Motrin) Allergy (Verified 04/22/25 10:56) Swelling strawberry Allergy (Verified 04/22/25 10:56) Swelling Nurse's Note: OV 05/08/25 Pt here for a f/u and reports epigastric pain after eating. Pt continues pantoprazole daily. [facility] Medical History Wears glasses Depression Alcohol use Fatty liver Injury of head and neck Loss of consciousness Blackout Non-smoker History of stress test GERD (gastroesophageal reflux disease) Anxiety Surgical History History of esophagogastroduodenoscop y (EGD) Hx of colonoscopy Social History Smoking Status: Never smoker HPI HPI Chief Complaint: epigastric pain Details: GLORIA MAYES, is a 55 F who presents to the office today for f/u. [facility] admission 2014 with acute pancreatitis and duodenitis. RAST food allergy 10.04.23: corn class II, cows milk class I, egg white class 0/I, peanut class II, sesame seed class II, soybean 0/I, walnut class 0/I, wheat class I, Colonoscopy 03.17.20: - Hemorrhoids found on perianal exam. - The entire examined colon is normal on direct and retroflexion views. - Diverticulosis in the sigmoid colon. - No specimens collected. Pt has been having ongoing epigastric pain since her 20s. Over time, it has increased in frequency and severity. In 2014, she was hospitalized for acute pancreatitis and duodenitis. She has been on PPIs every since but recently she discontinued it after tapering it down. She now takes famotidine which she does not think works as well. Her pain is stabbing and in the epigastric region. She will take Benadryl when this happens which relieves her pain within 30 minutes. It is typically worse after eating. She has identified numerous foods that lead to these symptoms including protein drinks, tomatoes and strawberries. RUQ US Fatty infiltration of the liver. Small cyst in the left lobe of the liver as well as a hemangioma in the region of the caudate lobe of the liver. CT abd/pelvis 04.02.25; Fatty infiltration of the liver. Small cyst in the left lobe of the liver as well as a hemangioma in the region of the caudate lobe of the liver. EGD 6.25- Z-line irregular, 40 cm from the incisors. Biopsied. - Multiple gastric polyps. Resected and retrieved. - No gross lesions in the first portion of the duodenum. OV 7.2.25 Pt continues with epigastric pain. It is intermittent and stabbing. Worse with eating. No alleviating factors. She feels stress may be a factor. ROS Const Constitutional: Positive for fatigue Eyes Eyes: No change in vision ENT ENT: No abnormal hearing, difficulty swallowing, mouth lesions, tongue swelling or throat swelling Resp Respiratory: No cough or shortness of breath Cardio Cardiology: No chest pain at rest, chest pain with exertion, shortness of breath or dyspnea on exertion Gastro GI: Positive for abdominal pain; No difficulty swallowing Genitourinary-Female: No difficulty urinating or burning urination Musc Musculoskeletal: Positive for stiffness Skin Skin: No hair loss in leg, yellowing of the eye, itchy eyes, rash, skin ulcer or skin swelling Neuro Neurology: No abnormal hearing, abnormal movements, confusion, unsteady gait/balance or memory loss Psych Psychiatric: Positive for anxiety, No confusion, Positive for depression and No memory loss Endo Endocrine: Positive for fatigue Aller/Imm Allergy/Immunologic: No itchy eyes, throat swelling or tongue swelling Leonel/Lymp Hematologic/Lymphatic: No easy bleeding, easy bruising or enlarged lymph nodes Exam Const General: cooperative, healthy appearing and comfortable Nutritional Appearance: average body habitus Orientation: alert [facility] Head: normal to inspection Eyes General: appearance normal, both eyes and all related structures Neck Neck: normal visual inspection Chest Chest palpation inspection: normal inspection of the chest Resp Effort Inspection: normal respiratory effort Cardio Rate: regular rate Rhythm: regular rhythm GI Inspection: normal to inspection Palpation: soft, no hepatos (more content not included)... Normal [facility] EGD Reporton 04-24-2025 EGD Report [facility] Medical Records Department [address] [place] [address] EGD Report MR#: [id number] Acct: [id number] Name: GLORIA MAYES Rep #: [id number] : 1970 55 From: Matty Friend DO PCP: Dr. Krystal Kelly DO Status:REG [facility] Patient Name: Gloria Mayes Procedure Date: 04/24/2025 12:14 PM Date of : 1970 Age: 55 Procedure: Upper GI endoscopy Indications: Suspected esophageal reflux Providers: Matty Rodríguez DO Referring MD: Krystal Kelly Medicines: Monitored Anesthesia Care Patient Profile: This is a 55 year old female. Refer to note in patient chart for documentation of history and physical. Patient has symptoms of acute epigastric abdominal pain. Complications: No immediate complications. Procedure: Pre-Anesthesia Assessment: - Prior to the procedure, a History and Physical was performed, and patient medications and allergies were reviewed. The patient is competent. The risks and benefits of the procedure and the sedation options and risks were discussed with the patient. All questions were answered and informed consent was obtained. Patient identification and proposed procedure were verified by the physician in the pre-procedure area. Mental Status Examination: alert and oriented. Airway Examination: normal oropharyngeal airway and neck mobility. Respiratory Examination: clear to auscultation. CV Examination: normal. Prophylactic Antibiotics: The patient does not require prophylactic antibiotics. Prior Anticoagulants: The patient has taken no anticoagulant or antiplatelet agents except for NSAID medication. ASA Grade Assessment: II - A patient with mild systemic disease. After reviewing the risks and benefits, the patient was deemed in satisfactory condition to undergo the procedure. The anesthesia plan was to use monitored anesthesia care (MAC). Immediately prior to administration of medications, the patient was re-assessed for adequacy to receive sedatives. The heart rate, respiratory rate, oxygen saturations, blood pressure, adequacy of pulmonary ventilation, and response to care were monitored throughout the procedure. The physical status of the patient was re-assessed after the procedure. After obtaining informed consent, the endoscope was passed under direct vision. Throughout the procedure, the patient's blood pressure, pulse, and oxygen saturations were monitored continuously. The Endoscope was introduced through the mouth, and advanced to the second part of duodenum. The upper GI endoscopy was accomplished without difficulty. The patient tolerated the procedure well. Scope In: 12:24:25 PM Scope Out: 12:31:04 PM Total Procedure Duration Time 0 hours 6 minutes 39 seconds Findings: The Z-line was irregular and was found 40 cm from the incisors. Biopsies were taken with a cold forceps for histology. Verification of patient identification for the specimen was done. Estimated blood loss was minimal. Multiple hyperplastic polyps with no bleeding and no stigmata of recent bleeding were found in the entire examined stomach. The polyp was removed with a hot snare. Resection and retrieval were complete. Verification of patient identification for the specimen was done. Estimated blood loss was minimal. No gross lesions were noted in the first portion of the duodenum. Impression: - Z-line irregular, 40 cm from the incisors. Biopsied. - Multiple gastric polyps. Resected and retrieved. - No gross lesions in the first portion of the duodenum. Recommendation: - Discharge patient to home. - Resume previous diet. - Continue present medications. - Await pathology results. - For multiple gastric polyps found during an upper endoscopy, the primary recommendation is to have the largest polyp removed entirely and obtain inside sales representative biopsies from the remaining polyps. This approach helps determine the nature of the polyps (e.g., hyperplastic, adenomatous) and assess the risk of dysplasia or cancer. Further management, including surveillance or additional interventions, will depend on the polyp type and pathology results. Procedure Code(s): --- Professional --- 26391, Esophagogastroduodenoscop y, flexible, transoral; with removal of tumor(s), polyp(s), or other lesion(s) by snare technique 78868, 59,51, Esophagogastroduodenoscop y, flexible, transoral; with biopsy, single or multiple CPT copyright 2021 [employer]. All rights reserved. The codes documented in this report are preliminary and upon loan review officer review may be revised to meet current compliance requirements. Matty Rodríguez DO 04/24/2025 12:40:22 PM This report has been signed electronically. Number of Addenda: 0 Note Initiated On: 04/24/2025 12:14 PM 04/24/25 1240 Date (more content not included)... Normal [facility] MR/POSTOP.Gaurav 04-24-2025 MR/POSTOP.[facility] Medical Records Department [address] [place] [address] Anesthesia Postop Eval I 04/24/25 1243 MR#: [id number] Acct: [id number] Name: GLORIA MAYES Rep #: [id number] : 1970 55 From: Robles Nino PCP: Dr. Krystal Kelly, DO Status:REG [facility] Y Race: C Location: [place] [address] Anesthesia: Postop Eval I Current Vital Signs Temperature: 97 F Pulse Rate: 68 Blood Pressure: 79/59 Respiratory Rate: 16 Pulse Ox: 97 Oxygen Delivery Method: Room Air Assessment Airway patent: Yes Spontaneous unlabored respirations: Yes Mental status: Asleep nausea: No Vomiting: No Anesthesia Complication: No Fluid Hydration Crystalloid volume administer (ml): 300 Total IV fluid infused: 300 Progress Note Anesthesia document: Postop Eval 1 completed: Yes 04/24/25 1244 Date Robles Lyon Signature: Date CC: Signed Normal [facility] MR/[id number] [facility]-24-2025 [facility] Medical Records Department [address] [place] [address] Anesthesia Postop Eval II 04/24/25 1616 MR#: [id number] Acct: [id number] Name: GLORIA MAYES Rep #: [id number] : 1970 55 From: Lena Alcantar CRNA PCP: Dr. Krystal Kelly, DO Status:DEP [facility] Y Race: C Location: EN Anesthesia Postop Eval I Sum Postop Eval Completion status Anesthesia document: Postop Eval 1 completed: Yes Anesthesia Postop Eval I Summary Anesthesia Postop Eval I Summary: Anesthesia Postop Eval I: Assessment Summary Airway patent Yes 04/24/25 12:44 [email or web address] Spontaneous unlabored Yes 04/24/25 12:44 [email or web address] respirations Mental status Asleep 04/24/25 12:44 [email or web address] nausea No 04/24/25 12:44 [email or web address] Vomiting No 04/24/25 12:44 [email or web address] Anesthesia Postop Eval I: Fluid Summary Crystalloid volume administer 300 04/24/25 12:44 [email or web address] (ml) Colloids volume administered ( ml) Blood Product volume administered (ml) Total IV fluid infused 300 04/24/25 12:44 [email or web address] Anesthesia Postop Eval I: Summary Notes Anesthesia Complication No 04/24/25 12:44 [email or web address] Anesthesia Complication Comment: Post-operative progress note Anesthesia: Postop Eval II Evaluation Mental status: Awake Pain Level: 0 nausea: No Vomiting: No 04/24/25 1616 Date Lena Alcantar CRNA Cosigner Signature: Date CC: Signed [facility] ,Urineon 04-24-2025 Beta HCG ( test) Ql (U) [facility] Comment on above: Result Comment: Canc elled via OM: Pt refuses the test Performed By: #### L 400.7600 #### [facility] [address] [place], [address] INTERNAL QC OK? [facility] Comment on above: Result Comment: Canc elled via OM: Pt refuses the test Performed By: #### L [id number] #### [facility] [address], [address] RECORD KIT LOT# [facility] Comment on above: Result Comment: Canc elled via OM: Pt refuses the test Performed By: #### L [id number] #### [facility] [address] [place], [address] Surgery Specimen Level Jeronimo 04-24-2025 Surgery Specimen Level IV Patient Age/Sex Location Account Attending Physician GLORIA MAYES 55/F EN [id number] Matty Rodríguez DO Specimen: [id number] Received: 04/24/25 Status: DONTA Hernández Num: [id number] Spec Type: EGD BIOPSY Cordelia Dr: DO JOSE M Turk OPERATION: EGD and biopsy and polypectomy PRE-OP DIAGNOSIS: Nausea/vomiting, epigastric pain TISSUE SUBMITTED: A- Distal esophagus biopsy, B- Greater curvature gastric polyp MICROSCOPIC DIAGNOSIS A. Distal esophagus, biopsy: Squamous mucosa with reactive changes and up to 8 eosinophils per high power field. Columnar mucosa negative for goblet cell metaplasia. B. Greater curvature, gastric polyp, biopsy: Fundic gland polyp. MICROSCOPIC DESCRIPTION Slides are reviewed. GROSS DESCRIPTION A. Received in fixative is one container labeled with the patient's name and designated Distal esophagus biopsy. The specimen consists of two irregular fragments of light yeh soft tissue that in aggregate measure 0.4 and 0.5 cm. The specimen is totally submitted in one cassette. B. Received in fixative is one container labeled with the patient's name and designated Greater curvature gastric polyp. The specimen consists of two pieces collectively measuring 1.5 x 1.0 x 0.6cm. Each piece is bisected. The specimen is totally submitted in one cassette. Lakshmi 04/24/2025 [facility]:[id number] Patient Age/Sex Location Account Attending Physician GLORIA MAYES 55/F EN [id number] Matty Rodríguez DO Signed (signature on file) Dr. Gertrude Dahl MD 04/30/25 0906 Normal [facility] Comment on above: Performed By: #### P SUIV #### [facility] [address] [place], [address] Abdomen/Pelvis WITH Contrast on 04-02-2025 Abdomen/Pelvis WITH Contrast [facility] Imaging Services [address] [place], [place] [id number] Abdomen/Pelvis WITH Contrast MR#: [id number] Acct: [id number] Name: GLORIA MAYES Rep #: [id number] : 1970 F 55 From: Maciej crocker MD PCP: Dr. Krystal Kelly, Status: REG CLI Study: Abdomen/Pelvis WITH Contrast Date of Exam: Exam# [id number] Ordering Dr: Carla Borja PROCEDURE: ABDOMEN/PELVIS WITH CONTRAST 04/02/2025 REASON FOR EXAM: LIVER CYSTS TECHNIQUE: Abdomen and pelvis CT with intravenous contrast. Coronal and Sagittal reconstruction series were provided. PATIENT PREPARATION: Per protocol ORAL CONTRAST TYPE: Given. CONTRAST: Isovue-300 VOLUME: 100 mL One or more dose reduction techniques were used (e.g., Automated exposure control, adjustment of the mA and/or kV according to patient size, use of iterative reconstruction technique. RADIATION DOSE SUMMARY: CTDlvol: 12 mGy DLP: 959.84 mGycm COMPARISON: Prior sonogram dated February 25, 2025. FINDINGS: Lung bases: Mild dependent atelectasis Liver: Diffuse fatty infiltration.. There is a 1 cm cyst in the medial aspect of the left lobe of the liver. There is a 2 cm hypodense nodule in the region of the caudate lobe of the liver with peripheral enhancement. There is filling of this hypodense nodule on later images suggestive of hemangioma. This corresponds to the sonographic findings. Gallbladder: Unremarkable Spleen: Normal size. Pancreas: Normal size without evidence of mass surrounding inflammation or ductal dilation. Adrenals: Unremarkable Kidneys: Normal renal sizes. No hydronephrosis. Bladder: Unremarkable Reproductive Organs: Normal uterine size and contour. Ovaries are unremarkable. Bowel: Scattered sigmoid diverticula. Appendix: Unremarkable Lymph nodes: Unremarkable. Vasculature: The abdominal aorta and IVC are normal. Peritoneum / Retroperitoneum: Unremarkable Bones: Unremarkable CT/Abdomen/Pelvis WITH Contrast IMPRESSION: Fatty infiltration of the liver. Small cyst in the left lobe of the liver as well as a hemangioma in the region of the caudate lobe of the liver. OVERALL FINAL ASSESSMENT: . LI-RADS is not meant to be used in patients <18 years or patients with cirrhosis due to congenital hepatic fibrosis or due to vascular disorders, because these patients have a lower chance of developing HCC. Reading Location: [id number] CC: Dr. Krystal Kelly DO; CAROLINE Miranda Business Services Clerk: Signed Normal [facility] Abdomen Limitedon 02-25-2025 Abdomen Limited [facility] Services [address] [place] [id number] Abdomen Limited MR#: [id number] Acct: [id number] Name: GLORIA MAYES Rep #: [id number] : 1970 F 54 From: Maciej crocker MD PCP: Dr. Krystal Kelly DO Status: REG CLI Study: Abdomen Limited Date of Exam: 02/25/25 Exam# [id number] Ordering Dr: Carla Borja PROCEDURE: ABDOMEN LIMITED 02/25/2025 REASON FOR EXAM: EPIGASTRIC PAIN COMPARISON: None FINDINGS: Liver: Diffusely echogenic suggesting fatty infiltration. The liver measures 14.1 cm. There is a 9 mm x 8 mm x 7 mm cyst in the left lobe. There is also evidence of a 3.2 cm x 3.5 cm x 3.3 cm isoechoic nodule in the left lobe of the liver suggestive of a hemangioma. Gallbladder: No stones, sludge, wall thickening or tenderness. Common bile duct: Normal measuring it measures 2.7 mm. . Pancreas: Visualized portions are sonographically unremarkable. Other: Visualized portions of the right kidney are unremarkable. No right upper quadrant ascites. US/Abdomen Limited IMPRESSION: Fatty infiltration of the liver. Subcentimeter cyst is seen in the left lobe. 3.2 cm x 3.5 cm x 3.3 cm isoechoic nodule in the left lobe suggestive of possible hemangioma. Reading Location: [place] [address] CC: Dr. Krystal Kelly DO; CAROLINE Miranda Business Services Clerk: Signed Normal [facility] Absolute lymphocyte countOrd ered By: Carla Borja on 02-12-2025 Lymphocytes Auto (Unsp spec) [#/Vol] 3.01 10*3/uL 0.83-4.51 [facility] Absolute neutrophil countOrd ered By: Carla Borja on 02-12-2025 Neutrophils (Bld) [#/Vol] 4.3 10*3/uL 2.0-7.7 [facility] Anion gap in Serum or Plasma Ordered By: Carla Borja on 02-12-2025 Anion gap [Moles/Vol] 13 mmol/L 5-15 [facility] Automated lymphocyte count a s percentage of total leukocytesOrdered By: Carla Borja on 02-12-2025 Lymphocytes/100 WBC Auto (Unsp spec) 36.6 % 19-41 [facility] BUN/creatinine ratioOrdered By: Carla Borja on 02-12-2025 Urea nitrogen/Creatinine [Mass ratio] 18.3 mg/mg 10-20 [facility] Basophil percentageOrdered B y: Carla Borja on 02-12-2025 Basophils/100 WBC (Bld) 0.5 % 0-1 [facility] Bilirubin, totalOrdered By: Carla Borja on 02-12-2025 Bilirubin [Mass/Vol] 0.30 mg/dL 0.00-1.30 [facility] CBC W/Diff, Automatedon Absolute Lymph 3.01 X10 3/uL Normal 0.83-4.51 [facility] Comment on above: Performed By: #### L 100.0100, L500.4050 #### [facility] [address] [place], [address] Absolute Neut 4.3 X10 3/uL Normal 2.0-7.7 [facility] Comment on above: Performed By: #### L 100.0100, L500.4050 #### [facility] [address] [place], [address] Basophils/100 WBC (Bld) 0.5 % Normal 0-1 [facility] Comment on above: Performed By: #### L 100.0100, L500.4050 #### [facility] [address] [place], [address] Eosinophils/100 WBC (Bld) 2.9 % Normal 0-5 [facility] Comment on above: Performed By: #### L 100.0100, L500.4050 #### [facility] [address] [place], [address] Erythrocyte distribution width (RBC) [Ratio] 12.2 % Normal 11.6-14.6 [facility] Comment on above: Performed By: #### L 100.0100, L500.4050 #### [facility] [address] [place], [address] Hematocrit (Bld) [Volume fraction] 40.6 % Normal 37-47 [facility] Comment on above: Performed By: #### L 100.0100, L500.4050 #### [facility] [address] [place], [address] Hemoglobin (Bld) [Mass/Vol] 13.2 g/dL Normal 12.0-15.0 [facility] Comment on above: Performed By: #### L 100.0100, L500.4050 #### [facility] [address] [place], [address] IG% 0.200 Normal 0.0-0.9 [facility] Comment on above: Result Comment: IG% - Immature Granulocytes (promyelocytes, myelocytes and metamyelocytes) > 1% indicates that a LEFT SHIFT is Present. Performed By: #### L 100.0100, L500.4050 #### [facility] [address] [place], [address] Lymphocytes/100 WBC (Bld) 36.6 % Normal 19-41 [facility] Comment on above: Performed By: #### L 100.0100, L500.4050 #### [facility] [address] [place], [address] MCH (RBC) [Entitic mass] 30.3 pg Normal 27.0-32.0 [facility] Comment on above: Performed By: #### L 100.0100, L500.4050 #### [facility] [address] [place], [address] MCHC (RBC) [Mass/Vol] 32.5 g/dL Normal 32-36 [facility] Comment on above: Performed By: #### L 100.0100, L500.4050 #### [facility] [address] [place], [address] MCV (RBC) [Entitic vol] 93.1 fL Normal 81-99 [facility] Comment on above: Performed By: #### L 100.0100, L500.4050 #### [facility] [address] [place], [address] Monocytes/100 WBC (Bld) 7.0 % Normal 0-10 [facility] Comment on above: Performed By: #### L 100.0100, L500.4050 #### [facility] [address] [place], [address] Neutrophils/100 WBC (Bld) 52.8 % Normal 47-70 [facility] Comment on above: Performed By: #### L 100.0100, L500.4050 #### [facility] [address] [place], [address] Nucleated RBC (Bld) [#/Vol] 0 10*3/uL Normal 0-5 [facility] Comment on above: Performed By: #### L 100.0100, L500.4050 #### [facility] [address] [place], [address] Platelet mean volume (Bld) [Entitic vol] 10.0 fL Normal 6.2-12.0 [facility] Comment on above: Performed By: #### L 100.0100, L500.4050 #### [facility] [address] [place], [address] Platelets (Bld) [#/Vol] 404 10*3/uL Normal 150-450 [facility] Comment on above: Performed By: #### L 100.0100, L500.4050 #### [facility] [address] [place], [address] RBC (Bld) [#/Vol] 4.36 10*6/uL Normal 4.2-5.4 [facility] Comment on above: Performed By: #### L 100.0100, L500.4050 #### [facility] [address] [place], [address] RDW SD 42.3 fl Normal 35.1-43.9 [facility] Comment on above: Performed By: #### L 100.0100, L500.4050 #### [facility] [address] [place], [address] WBC (Bld) [#/Vol] 8.2 10*3/uL Normal 4.4-11.0 [facility] Comment on above: Performed By: #### L 100.0100, L500.4050 #### [facility] [address] [place], [address] Carbon dioxide, total [Moles /volume] in Central venous bloodOrdered By: Carla Borja on 02-12-2025 CO2 [Moles/Vol] 25.8 mmol/L 21.0-32.0 [facility] Chloride assayOrdered By: Parisa Borja on 02-12-2025 Chloride [Moles/Vol] 100 mmol/L 98-108 [facility] Comprehensive Metabolic Prof ilon 02-12-2025 Albumin [Mass/Vol] 4.3 g/dL Normal 3.5-5.0 [facility] Comment on above: Performed By: #### L 100.0100, L500.4050 #### [facility] [address] [place], [address] Albumin/Globulin [Mass ratio] 1.2 {ratio} Normal 0.9-2.4 [facility] Comment on above: Performed By: #### L 100.0100, L500.4050 #### [facility] [address] [place], [address] ALK PHOS 154 U/L High 35-104 [facility] Comment on above: Performed By: #### L 100.0100, L500.4050 #### [facility] [address] [place], [address] ALT [Catalytic activity/Vol] 45 U/L High <=34 [facility] Comment on above: Performed By: #### L 100.0100, L500.4050 #### [facility] [address] [place], [address] AST [Catalytic activity/Vol] 36 U/L High <=31 [facility] Comment on above: Performed By: #### L 100.0100, L500.4050 #### [facility] [address] [place], [address] Bilirubin [Mass/Vol] 0.30 mg/dL Normal 0.00-1.30 [facility] Comment on above: Performed By: #### L 100.0100, L500.4050 #### [facility] [address] [place], [address] BUN/CRE 18.3 RATIO Normal 10-20 [facility] Comment on above: Performed By: #### L 100.0100, L500.4050 #### [facility] [address] [place], [address] Calcium [Mass/Vol] 9.8 mg/dL Normal 7.6-11.0 [facility] Comment on above: Performed By: #### L 100.0100, L500.4050 #### [facility] [address] [place], [address] Chloride [Moles/Vol] 100 mmol/L Normal 98-108 [facility] Comment on above: Performed By: #### L 100.0100, L500.4050 #### [facility] [address] [place], [address] CO2 [Moles/Vol] 25.8 mmol/L Normal 21.0-32.0 [facility] Comment on above: Performed By: #### L 100.0100, L500.4050 #### [facility] [address] [place], [address] Creatinine [Mass/Vol] 0.91 mg/dL Normal 0.70-1.20 [facility] Comment on above: Performed By: #### L 100.0100, L500.4050 #### [facility] [address] [place], [address] GAP 13 Normal 5-15 [facility] Comment on above: Performed By: #### L 100.0100, L500.4050 #### [facility] [address] [place], [address] GFR/1.73 sq M.predicted among non-blacks MDRD (S/P/Bld) [Vol rate/Area] 74 mL/min/{1.73_m2} Normal >60 [facility] Comment on above: Result Comment: mL/m in/1.73m2 CKD-EPI Creatinine Equation (2020) Performed By: #### L 100.0100, L500.4050 #### [facility] [address] [place], [address] Globulin (S) [Mass/Vol] 3.5 g/dL Normal 2.2-4.2 [facility] Comment on above: Performed By: #### L 100.0100, L500.4050 #### [facility] [address] [place], [address] Glucose [Mass/Vol] 89 mg/dL Normal 70-99 [facility] Comment on above: Performed By: #### L 100.0100, L500.4050 #### [facility] [address] [place], [address] Potassium [Moles/Vol] 4.3 mmol/L Normal 3.3-5.1 [facility] Comment on above: Performed By: #### L 100.0100, L500.4050 #### [facility] [address] [place], [address] Sodium [Moles/Vol] 139 mmol/L Normal 133-145 [facility] Comment on above: Performed By: #### L 100.0100, L500.4050 #### [facility] [address] [place], [address] T PROT 7.8 g/dL Normal 5.9-8.4 [facility] Comment on above: Performed By: #### L 100.0100, L500.4050 #### [facility] [address] [place], [address] Urea nitrogen [Mass/Vol] 17 mg/dL Normal 4-19 [facility] Comment on above: Performed By: #### L 100.0100, L500.4050 #### [facility] [address] [place], [address] Eosinophil percentageOrdered By: Carla Borja on 02-12-2025 Eosinophils/100 WBC (Bld) 2.9 % 0-5 [facility] Erythrocyte distribution wid th (RBC) [Ratio]Ordered By: Carla Borja on 02-12-2025 Erythrocyte distribution width (RBC) [Entitic vol] 42.3 fL 35.1-43.9 [facility] Erythrocyte distribution wid th ratioOrdered By: Carlaadriana Borja on 02-12-2025 Erythrocyte distribution width (RBC) [Ratio] 12.2 % 11.6-14.6 [facility] Erythrocyte distribution wid th standard deviationOrdered By: Carlaadriana Borja on 02-12-2025 Erythrocyte distribution width (RBC) [Ratio] 42.3 fl 35.1-43.9 [facility] GFR/1.73 sq M.predicted cortney g non-blacks MDRD (S/P/Bld) [Vol rate/Area]Ordered By: Carla Borja on 02-12-2025 Estimated GFR (MDRD) Non-Af Amer 74 >60 [facility] Comment on above: mL/min/1.73m2 CKD-EP I Creatinine Equation (2020) Gastroenterology Visit Repor ton 02-12-2025 Gastroenterology Visit Report [facility] [address] [place] [address] OFFICE VISIT Date of Service: 02/12/25 MR#: [id number] Acct: [id number] Name: GLORIA MAYES Rep #: [id number] : 1970 Provider: CAROLINE Miranda Age/Sex: 54/F Location[place] [facility] Status: Signed Intake Vital Signs 05/27/23 20:58 Height 5 ft 3 in Intake Visit Reasons: Abdominal complaints Chief Complaint: epigastric pain Allergies aspirin Allergy (Verified 05/27/23 21:01) Swelling honey Allergy (Verified 05/27/23 21:01) Swelling ibuprofen (From Motrin) Allergy (Verified 05/27/23 21:01) Swelling strawberry Allergy (Verified 05/27/23 21:01) Swelling Medications ???Medication ???Instructions ???Recorded ???Confirmed ???Type escitalopram oxalate 20 mg tablet 20 mg PO QHS 03/13/20 02/12/25 Hi story buspirone 5 mg tablet 5 mg PO BID 02/12/25 02/12/25 Hist ory famotidine 40 mg tablet 40 mg PO BID 02/12/25 02/12/25 His tory lactobacillus combination no.4 3 3,000 mmu cells PO QDAY 02/12/25 0 02/12/25 History billion cell capsule (Probiotic) zwuqvtvl-hle-ftxrp acid 0.4 1 tab PO QDAY 02/12/25 02/12/25 Hi story mg-lycopene 300 mcg-lutein 250 mcg tablet (Centrum Silver) Patient : No Have you fallen in the past year?: No Nurse's Note: OV 02.12.25 Pt here to establish care with [facility]. Pt reports abdominal pain and heartburn. Pt takes famotidine daily. Pt reports prior hx of EGD and colonoscopy. Pt still has gallbladder. [facility] Medical History Anxiety GERD (gastroesophageal reflux disease) Social History Smoking Status: Never smoker HPI HPI Chief Complaint: epigastric pain Details: GLORIA MAYES, is a 54 F who presents to the office today for establishment with [facility]. [facility] admission 2014 with acute pancreatitis and duodenitis. RAST food allergy 10.04.23: corn class II, cows milk class I, egg white class 0/I, peanut class II, sesame seed class II, soybean 0/I, walnut class 0/I, wheat class I, Colonoscopy 03.17.20: - Hemorrhoids found on perianal exam. - The entire examined colon is normal on direct and retroflexion views. - Diverticulosis in the sigmoid colon. - No specimens collected. Pt has been having ongoing epigastric pain since her 20s. Over time, it has increased in frequency and severity. In 2014, she was hospitalized for acute pancreatitis and duodenitis. She has been on PPIs every since but recently she discontinued it after tapering it down. She now takes famotidine which she does not think works as well. Her pain is stabbing and in the epigastric region. She will take Benadryl when this happens which relieves her pain within 30 minutes. It is typically worse after eating. She has identified numerous foods that lead to these symptoms including protein drinks, tomatoes and strawberries. ROS Const Constitutional: Positive for fatigue and weight change ENT ENT: No difficulty swallowing Gastro GI: Positive for abdominal pain and heartburn; No belching, bloating, change in bowel habits, change in stool character, coffee ground emesis, constipation, cramping, diarrhea, difficulty swallowing, feeling full early, excessive flatus, incontinent of stools, Vomiting blood/hematemesis, Blood in stool, loose stools, Black,tarry stools, nausea/dyspepsia, pain with swallowing, vomiting or other Musc Musculoskeletal: Positive for back pain; No joint pain Skin Skin: No yellowing of the eye or itchy eyes Psych Psychiatric: Positive for anxiety and Positive for depression Endo Endocrine: Positive for fatigue and weight change Aller/Imm Allergy/Immunologic: No itchy eyes Leonel/Lymp Hematologic/Lymphatic: No easy bleeding or easy bruising Exam Const General: cooperative and comfortable Nutritional Appearance: average body habitus and well nourished [facility] Head: normal to inspection Ears: hearing grossly normal bilaterally Nose: external nose normal Face and sinus: normal facial exam Eyes General: appearance normal, both eyes and all related structures Neck Neck: normal visual inspection Chest Chest palpation inspection: normal inspection of the chest and normal palpation of entire chest wall Resp Effort Inspection: normal respiratory effort Auscultation: Bilateral: Clear to Auscultation Cardio Palpation: normal PMI Rate: regular rate Rhythm: regular rhythm GI Inspection: normal to inspection Auscultation: normal bowel sounds Percussion: normal to percussion Palpation: no hepatosplenomegaly Skin General: no rashes or lesions noted Neuro General: patient alert Extrem General: normal to inspection Psych Affect: normal affect Assessment and Plan Assessment and Pl (more content not included)... Normal [facility] [facility] Glomerular filtration rate ( GFR) estimation/1.73 sq m using serum, plasma, or whole bOrdered By: Carla Borja on 02-12-2025 GFR/1.73 sq M.predicted among non-blacks MDRD (S/P/Bld) [Vol rate/Area] 74 mL/min/{1.73_m2} >60 [facility] Comment on above: mL/min/1.73m2 CKD-EP I Creatinine Equation (2020) Hematocrit Auto (Bld) [Volum e fraction]Ordered By: Carla Borja on 02-12-2025 Hematocrit (Bld) [Volume fraction] 40.6 % 37-47 [facility] Hemoglobin measurementOrdere d By: Carla Borja on 02-12-2025 Hemoglobin (Bld) [Mass/Vol] 13.2 g/dL 12.0-15.0 [facility] Immature granulocytes/100 WB C Auto (Bld)Ordered By: Carla Borja on 02-12-2025 Immature granulocytes/100 WBC (Bld) 0.200 % 0.0-0.9 [facility] Comment on above: IG% - Immature Granu locytes (promyelocytes, myelocytes and metamyelocytes) > 1% indicates that a LEFT SHIFT is Present. Laboratory - Chemistry and C hemistry - challengeOrdered By: Carla Borja on 02-12-2025 AST [Catalytic activity/Vol] 36 U/L High <32 [facility] Lymphocytes Auto (Unsp spec) [#/Vol]Ordered By: Carla Borja on 02-12-2025 Lymphocytes (Bld) [#/Vol] 3.01 10*3/uL 0.83-4.5 1 [facility] Lymphocytes/100 WBC Auto (Un sp spec)Ordered By: Carla Borja on 02-12-2025 Lymphocytes/100 WBC (Bld) 36.6 % 19-41 [facility] MCV (mean corpuscular volume ) determinationOrdered By: Carla Borja on 02-12-2025 MCV (RBC) [Entitic vol] 93.1 fL 81-99 [facility] Mean corpuscular hemoglobin (MCH) determinationOrdered By: Carla Borja on 02-12-2025 MCH (RBC) [Entitic mass] 30.3 pg 27.0-32.0 [facility] Mean corpuscular hemoglobin concentration (MCHC) determinationOrdered By: Carla Borja on 02-12-2025 MCHC (RBC) [Mass/Vol] 32.5 g/dL 32-36 [facility] Mean platelet volume determi nationOrdered By: Carla Borja on 02-12-2025 Platelet mean volume (Bld) [Entitic vol] 10.0 fL 6.2-12.0 [facility] Monocyte percentageOrdered B y: Carla Borja on 02-12-2025 Monocytes/100 WBC (Bld) 7.0 % 0-10 [facility] Neutrophil percentageOrdered By: Carla Borja on 02-12-2025 Neutrophils/100 WBC (Bld) 52.8 % 47-70 [facility] Nucleated red blood cell per centageOrdered By: Carla Borja on 02-12-2025 Nucleated RBC/100 WBC (Bld) [Ratio] 0 % 0-5 [facility] Platelet countOrdered By: Parisa Borja on 02-12-2025 Platelets (Bld) [#/Vol] 404 10*3/uL 150-450 [facility] Potassium (Unsp spec) [Mass/ Vol]Ordered By: Carla Borja on 02-12-2025 Potassium [Moles/Vol] 4.3 mmol/L 3.3-5.1 [facility] Potassium measurement (mass/ volume)Ordered By: Carla Borja on 02-12-2025 Potassium (Unsp spec) [Mass/Vol] 4.3 mmol/L 3.3-5.1 [facility] RBC Auto (Bld) [#/Vol]Ordere d By: Carla Borja on 02-12-2025 RBC (Bld) [#/Vol] 4.36 10*6/uL 4.2-5.4 [facility] Serum creatinine measurement (mass/volume)Ordered By: Carla Borja on 02-12-2025 Creatinine [Mass/Vol] 0.91 mg/dL 0.70-1.20 [facility] Serum globulin measurementOr dered By: Carla Borja on 02-12-2025 Globulin (S) [Mass/Vol] 3.5 g/dL 2.2-4.2 [facility] Serum glucose measurement (m ass/volume)Ordered By: Carla Borja on 02-12-2025 Glucose [Mass/Vol] 89 mg/dL 70-99 [facility] Serum or plasma alanine falcon otransferase (ALT) measurementOrdered By: Carla Borja on 02-12-2025 ALT [Catalytic activity/Vol] 45 U/L High <35 [facility] Serum or plasma albumin peggy urement (mass/volume)Ordered By: Carla Borja on 02-12-2025 Albumin [Mass/Vol] 4.3 g/dL 3.5-5.0 [facility] Serum or plasma albumin/glob ulin mass ratioOrdered By: Carla Borja on 02-12-2025 Albumin/Globulin [Mass ratio] 1.2 {ratio} 0.9-2.4 [facility] Serum or plasma alkaline ania sphatase measurementOrdered By: Carla Borja on 02-12-2025 ALP [Catalytic activity/Vol] 154 U/L High 35-104 [facility] Serum or plasma calcium peggy urement (mass/volume)Ordered By: Carla Borja on 02-12-2025 Calcium [Mass/Vol] 9.8 mg/dL 7.6-11.0 [facility] Serum or plasma urea nitroge n measurement (mass/volume)Ordered By: Carla Borja on 02-12-2025 Urea nitrogen [Mass/Vol] 17 mg/dL 4-19 [facility] Sodium levelOrdered By: Jens Borja on 02-12-2025 Sodium [Moles/Vol] 139 mmol/L 133-145 [facility] Total proteinOrdered By: Rica Borja on 02-12-2025 Protein [Mass/Vol] 7.8 g/dL 5.9-8.4 [facility] White blood cell (WBC) count Ordered By: Carla Borja on 02-12-2025 WBC (Bld) [#/Vol] 8.2 10*3/uL 4.4-11.0 [facility] Gastric Emptying Studyon Gastric Emptying Study [facility] Services [address] [place], [place] [id number] Gastric Emptying Study MR#: [id number] Acct: [id number] Name: GLORIA MAYES Rep #: [id number] : 1970 F 54 From: Maciej crocker MD PCP: Dr. Krystal Kelly DO Status: REG CLI Study: Gastric Emptying Study Date of Exam: 02/05/25 Exam# [id number] Ordering Dr: Krystal Kelly DO PROCEDURE: GASTRIC EMPTYING STUDY 02/05/2025 REASON FOR EXAM: UNSPECIFIED ABDOMINAL PAIN COMPARISON: None. TECHNIQUE: The patient ingested a standard meal of oatmeal and water with 1.1 mCi of technetium sulfur colloid.,. There was no vomiting postprandially. Anterior and posterior planar images of the upper abdomen were obtained for 1 minute immediately following the meal at 1h, if more than 10% of the activity persisted within the stomach. Regions of interest were drawn, and a geometric mean was used to calculate a [id number]. RADIOPHARMACEUTICAL: 1.1 mCi of technetium labeled sulfur colloid. FINDINGS: Percent activity remaining in stomach: 1 hour 55% % (normal 37-90%) NM/Gastric Emptying Study IMPRESSION: Normal gastric emptying examination. Reading Location: [facility] CC: Dr. Krystal Kelly DO Business Services Clerk: Signed Normal [facility] Pelvic w/ Transvaginalon Pelvic w/ Transvaginal [facility] [address] [place], [place] [address] Pelvic w/ Transvaginal MR#: [id number] Acct: [id number] Name: GLORIA MAYES Rep #: [id number] : [id number] F [id number] From: You Kulkarni MD PCP: Dr. Krystal Kelly DO Status: REG CLI Study: Pelvic w/ Transvaginal Date of Exam: 08/09/24 Exam# [id number] Ordering Dr: MASSIMO LONGORIA MD [id number] STUDY: ULTRASOUND OF THE FEMALE PELVIS - COMPLETE REASON FOR EXAM: Female, 54 years old. IRREG BLEEDING LMP: Menopause TECHNIQUE: Transabdominal and Transvaginal TECHNICAL QUALITY: Adequate. COMPARISON: None. FINDINGS: The uterus is retroverted and is in a midline position. The uterus measures 6.7 x 5.0 x 4.5 cm. Some echogenic fluid within the endocervical canal. The endometrium measures 6 mm in thickness, and is hyperechoic. There is no demonstrated endometrial mass. 2.5 cm heterogeneous isoechoic mass within the fundus the uterus consistent with an intramural fibroid. Another 1.8 cm isoechoic mass within the posterior fundus of uterus consistent with an intramural fibroid. I.U.D. - The patient does not have an I.U.D. The right ovary is visualized. The right ovary measures 2.2 x 1.5 x 1.4 cm. There is no right ovarian cyst or ovarian mass. There is no visualized right adnexal mass or complex lesion. There is normal arterial and normal venous vascularity. The left ovary is visualized. The left ovary measures 1.8 x 1.1 x 1.2 cm. There is no left ovarian cyst or ovarian mass. There is no visualized left adnexal mass or complex lesion. There is normal arterial and normal venous vascularity. There is no fluid in the cul-de-sac. The pre void volume of the bladder was ml. The post void volume of the bladder was ml. Polycystic ovary disease: No. US/Pelvic w/ Transvaginal IMPRESSION: 2 fibroids in the fundus the uterus but overall normal size of the uterus. Suspect hemorrhagic fluid in the endocervical canal. Normal ovaries. Electronically Signed: You Kulkarni MD at 13:03 EDT , CC: Dr. Krystal Kelly DO; MASSIMO LONGORIA MD Business Services Clerk: Signed Normal [facility] CNPNon 12-20-2023 CNPN Telephone (ENDMED) ----- GLORIA MAYES ([id number]) 1970 F Date Time Provider Department 12/20/23 MARICRUZ FLANAGAN During your visit today, we recorded the following information about you: Rita Stone MA 12/20/2023 2:17 PM Signed Received referral documentation from Yara Romano CNP No appt had been scheduled yet. Allergies As of Date: 12/20/2023 (Not on File) Date Reviewed: Never Reviewed Reason for Visit: Referral documentation [Other] Cmt: Yara Romano CNP Problem List As Of Date: 12/20/2023 (None) Encounter Status:Closed by RITA STOEN MA on 12/20/23 [facility] Absolute lymphocyte countOrd ered By: Rainer Pete on 11-25-2023 Lymphocytes Auto (Unsp spec) [#/Vol] 2.86 10*3/uL 0.83-4.51 [facility] Automated lymphocyte count a s percentage of total leukocytesOrdered By: Rainer Pete on 11-25-2023 Lymphocytes/100 WBC Auto (Unsp spec) 36.2 % 19-41 [facility] Basophil percentageOrdered B y: Rainer Pete on 11-25-2023 Basophil percentage < 10.0 IU/mL <15 [facility] Basophils/100 WBC (Bld) 0.8 % 0-1 [facility] Bilirubin [Mass/Vol] 0.20 mg/dL 0.20-1.00 [facility] Comment on above: For patients on eltr ombopag therapy, use of Dimension [place] TBIL is not recommended. Eosinophils/100 WBC (Bld) 2.2 % 0-5 [facility] Glucose [Mass/Vol] 91 mg/dL 74-106 [facility] Hemoglobin (Bld) [Mass/Vol] 12.7 g/dL 12.0-15.0 [facility] Monocytes/100 WBC (Bld) 5.4 % 0-10 [facility] Neutrophils (Bld) [#/Vol] 4.4 10*3/uL 2.0-7.7 [facility] Neutrophils/100 WBC (Bld) 55.1 % 47-70 [facility] Protein [Mass/Vol] 7.5 g/dL 6.4-8.2 [facility] WBC (Bld) [#/Vol] 7.9 10*3/uL 4.4-11.0 [facility] Determination of erythrocyte mean corpuscular volume (MCV)Ordered By: Rainer Pete on 11-25-2023 MCV (RBC) [Entitic vol] 94.6 fL 81-99 [facility] Direct bilirubinOrdered By: Rainergerber Morrell on 11-25-2023 Bilirubin.direct [Mass/Vol] 0.10 mg/dL 0.00-0.30 [facility] Erythrocyte distribution wid th ratioOrdered By: [facility] on 11-25-2023 Erythrocyte distribution width (RBC) [Ratio] 12.6 % 11.6-14.6 [facility] Erythrocyte distribution wid th standard deviationOrdered By: [facility] on 11-25-2023 Erythrocyte distribution width (RBC) [Entitic vol] 43.7 fL 35.1-43.9 [facility] Erythrocyte sedimentation ra teOrdered By: [facility] on 11-25-2023 ESR (Bld) [Velocity] 14 mm/h 0-30 [facility] Hematocrit Auto (Bld) [Volum e fraction]Ordered By: [facility] Porsche on 11-25-2023 Hematocrit (Bld) [Volume fraction] 38.9 % 37-47 [facility] Immature granulocytes/100 WB C Auto (Bld)Ordered By: Rainergerber Pete on 11-25-2023 Immature granulocytes/100 WBC (Bld) 0.300 % 0.0-0.9 [facility] Comment on above: IG% - Immature Granu locytes (promyelocytes, myelocytes and metamyelocytes) > 1% indicates that a LEFT SHIFT is Present. Laboratory - Chemistry and C hemistry - challengeOrdered By: Rainergerber Pete on 11-25-2023 ALP [Catalytic activity/Vol] 123 U/L 45-117 [facility] ALT [Catalytic activity/Vol] 10 U/L 13-56 [facility] Globulin (S) [Mass/Vol] 4.3 g/dL 2.2-4.2 [facility] Laboratory - Hematology and Cell countsOrdered By: Rainer Pete on 11-25-2023 MCH (RBC) [Entitic mass] 30.9 pg 27.0-32.0 [facility] MCHC (RBC) [Mass/Vol] 32.6 g/dL 32-36 [facility] Nucleated RBC/100 WBC (Bld) [Ratio] 0 % 0-5 [facility] Platelets (Bld) [#/Vol] 401 10*3/uL 150-450 [facility] Mitotic spindle apparatus Ab [Titer] in Serum or PlasmaOrdered By: Rainergerber Pete on 11-25-2023 Mitotic spindle apparatus Ab [Titer] TNP [facility] Comment on above: Test not performed No Panel InformationOrdered By: Rainer Pete on 11-25-2023 Anti-Nuclear Antibody Comment 2 Comment . [facility] Comment on above: Pattern Potential Di sease Association Homogeneous Systemic Lupus Erythematosus, Drug Induced Systemic Lupus Erythematosus, Chronic Autoimmune hepatitis, Juvenile Idiopathic Arthritis Speckled Sjogren Syndrome, Systemic Lupus Erythematosus, Subacute Cutaneous Lupus, Lupus, Congenital Heart Block, Mixed Connective Tissue Disease, Scleroderma-diffuse, Scleroderma-Autoimmune Myositis Overlap Syndrome, Systemic Lupus Tqhijgforulgc-Ivrsgcqtomm-Lvreirkrqt Myositis Overlap Syndrome, Systemic Autoimmune Rheumatic Disease, Undifferentiated Connective Tissue Disease Nucleolar Systemic Sclerosis, Scleroderma-Autoimmune Myositis Overlap Syndrome, Sjogren Syndrome, Raynaud phenomenon, Pulmonary Arterial Hypertension, Systemic Autoimmune Rheumatic Disease, Cancer Centromere Scleroderma-CREST, Limited Cutaneous SSc, Raynaud's Phenomenon, Primary Biliary Cholangitis Nuclear Dot Primary Biliary Cholangitis Nuclear Primary Biliary Cholangitis, AutoimmuneMembrane Hepatitis/Liver disease, Systemic Autoimmune Rheumatic Disease, Autoimmune Cytopenias, Linear Scleroderma, Antiphospholipid Syndrome Performed at: [address] [id number] Director: Alberto Eller PhD, Phone: [phone] Estimated GFR (MDRD) Amer 77 mL/min >60 [facility] Comment on above: GFR Calc Estimated GFR (MDRD) Non-Af Amer 63 mL/min >60 [facility] Comment on above: Non- GFR Calc Tryptase 5.7 ug/L 2.2-13.2 [facility] Vitamin D 25-Hydroxy 28.9 ng/mL [facility] Comment on above: Vitamin D 25(OH) Sta tus Range Deficiency <20 ng/mL (50nmol/L) Insufficiency 20 - 30 ng/mL (50 - 75 nmol/L) Sufficiency 30 - 100 ng/mL (75 - 250 nmol/L) Toxicity >100 ng/mL (>250 nmol/L) Platelet mean volume Jac-Ec ker (Bld) [Entitic vol]Ordered By: Rainer Pete on 11-25-2023 Platelet mean volume (Bld) [Entitic vol] 9.8 fL 6.2-12.0 [facility] RBC Auto (Bld) [#/Vol]Ordere d By: Rainer Pete on 11-25-2023 RBC (Bld) [#/Vol] 4.11 10*6/uL 4.2-5.4 [facility] Serum antinuclear antibody ( TC) detection with nuclear membrane pores pattern by immunofluorescenceOrdered By: Rainer Pete on 11-25-2023 Nuclear membrane pores nuclear Ab pattern IF Ql (S) [facility] Comment on above: Test not performed Serum centrosomal pattern an tinuclear antibody (TC) detection by immunofluorescenceOrdered By: Rainer Pete on 11-25-2023 Centrosomal nuclear Ab pattern IF Ql (S) [facility] Comment on above: Test not performed Serum midbody antibody titer by immunofluorescenceOrdered By: Rainer Pete on 11-25-2023 Midbody Ab IF (S) [Titer] [facility] Comment on above: Test not performed Serum multiple nuclear dot p attern antinuclear IgG antibody (TC) titer by immunofluoOrdered By: Rainer Pete on 11-25-2023 Multiple nuclear dots nuclear IgG pattern IF (S) [Titer] [facility] Comment on above: Test not performed Serum nuclear antibody detec tionOrdered By: Rainer Pete on 11-25-2023 Nuclear Ab Ql (S) Positive . [facility] Comment on above: Negative <1:80 Borde rline 1:80 Positive >1:80 Serum nucleolar nuclear anti body pattern titerOrdered By: Rainer Pete on 11-25-2023 Nucleolar nuclear Ab pattern (S) [Titer] [facility] Comment on above: Test not performed Serum or plasma complement C 4 measurement (mass/volume)Ordered By: Rainer Pete on 11-25-2023 Complement C4 [Mass/Vol] 35 mg/dL 12-38 [facility] Serum or plasma creatinine m easurement (mass/volume)Ordered By: Rainer Pete on 11-25-2023 Creatinine [Mass/Vol] 0.97 mg/dL 0.55-1.02 [facility] Comment on above: The validity of the calculated GFR & GFRAA in patients over 70 years has not been determined. Clinical correlation is essential. Serum or plasma thyroid stim ulating hormone (TSH) measurement (units/volume)Ordered By: Rainergerber Pete on 11-25-2023 TSH Qn 2.84 uIU/mL 0.358-3.74 [facility] Serum or plasma thyroperoxid ase antibody assay (units/volume)Ordered By: Rainer Pete on 11-25-2023 TPO Ab Qn [IU]/mL 0-34 [facility] Comment on above: Performed at: [address] [id number] Director: Alberto Eller PhD, Phone: [phone] at: - [facility] [id number] Director: Graciela Trevino MD, Phone: [phone] Serum or plasma urea nitroge n measurement (mass/volume)Ordered By: Rainer Pete on 11-25-2023 Urea nitrogen [Mass/Vol] 11 mg/dL 7-18 [facility] Serum or plasma uric acid me asurement (mass/volume)Ordered By: Rainer Pete on 11-25-2023 Urate [Mass/Vol] 4.1 mg/dL 2.6-6.0 [facility] Comment on above: The drugs N-Acetylcy steine and Metamizole may falsely depress this assay. Serum proliferating cell nuc lear antigen (PCNA) antibody titer by immunofluorescenceOrdered By: Rainer Pete on 11-25-2023 PCNA extractable nuclear Ab IF (S) [Titer] 1:160 . [facility] Comment on above: Proliferating Cell N uclear Antigen (PCNA) antibodies arespecific for SLE, however, the prevalence is low (2-5%).ICAP nomenclature: AC-[id number] Serum smooth nuclear envelop e pattern antinuclear antibody (TC) titerOrdered By: Rainer Pete on 11-25-2023 Rim nuclear Ab pattern (S) [Titer] [facility] Comment on above: Test not performed Serum speckled nuclear antib tigist pattern titerOrdered By: Rainer Pete on 11-25-2023 Speckled nuclear Ab pattern (S) [Titer] [facility] Comment on above: Test not performed Thin prep Papanicolaou smear with manual screeningOrdered By: Rainer Pete on 11-25-2023 Thin prep Papanicolaou smear with manual screening 3.2 g/dL 3.2-5.0 [facility] Thin prep Papanicolaou smear with manual screening 12 U/L 15-37 [facility] Thin prep Papanicolaou smear with manual screening [facility] Comment on above: Test not performed Laboratory - Miscellaneous t estsOrdered By: Yara Romano on 10-04-2023 Service comment (Unsp spec) [Interp] Comment . [facility] Comment on above: Levels of Specific I gE Class Description of Class ----- < 0.10 0 Negative 0.10 - 0.31 0/I Equivocal/Low 0.32 - 0.55 I Low 0.56 - 1.40 II Moderate 1.41 - 3.90 III High 3.91 - 19.00 IV Very High 19.01 - 100.00 V Very High >100.00 Very High No Panel InformationOrdered By: Yara Romano on 10-04-2023 Scallop Allergen <0.10 kU/L Class 0 [facility] Sesame Seed Allergen IgE Antibody 1.05 kU/L Class II [facility] Comment on above: Performed at: [address] [id number] Director: Graciela Trevino MD, Phone: [phone] Shrimp Allergen <0.10 kU/L Class 0 [facility] Serum black walnut IgE antib tigist assay (units/volume)Ordered By: Yraa Romano on 10-04-2023 [place] IgE Qn (S) 0.22 kU/L Class 0/I [facility] Serum clam IgE antibody assa y (units/volume)Ordered By: Yara Romano on 10-04-2023 Clam IgE Qn (S) <0.10 kU/L Class 0 [facility] Serum codfish IgE antibody a ssay (units/volume)Ordered By: Yara Romano on 10-04-2023 Codfish IgE Qn (S) <0.10 kU/L Class 0 [facility] Serum corn IgE antibody assa y (units/volume)Ordered By: Yara Romano on 10-04-2023 [place] IgE Qn (S) 0.67 kU/L Class II [facility] Serum cow milk IgE antibody assay (units/volume)Ordered By: Yara Romnao on 10-04-2023 Cow milk IgE Qn (S) 0.54 kU/L Class I [facility] Serum egg white IgE antibody assay (units/volume)Ordered By: Yara Romano on 10-04-2023 Egg white IgE Qn (S) 0.20 kU/L Class 0/I [facility] Serum peanut IgE antibody as say (units/volume)Ordered By: Yara Romano on 10-04-2023 Peanut IgE Qn (S) 1.14 kU/L Class II [facility] Serum soybean IgE antibody a ssay (units/volume)Ordered By: Yara Romano on 10-04-2023 Soybean IgE Qn (S) 0.27 kU/L Class 0/I [facility] Serum wheat IgE antibody ass ay (units/volume)Ordered By: Yara Romano on 10-04-2023 Wheat IgE Qn (S) 0.45 kU/L Class I [facility] No Panel InformationOrdered By: MASSIMO LONGORIA on 08-13-2023 Follicle Stimulating Hormone 15.7 mIU/mL [facility] Comment on above: NORMAL REFERENCE RAN GES FEMALE FOLLICULAR 2.3 - 12.6 mIU/mL MID-CYCLE PEAK 5.2 - 17.5 mIU/mL LUTEAL 1.7 - 12.9 mIU/mL POST-MENOPAUSAL ON MHT 5.9 - 72.8 mIU/mL NOT ON MHT 12.7 - 132.2 mlU/mL MALE 0.7 - 10.8 mIU/mL No Panel InformationOrdered By: Oneil Narayanan on 05-27-2023 Ethyl Alcohol Level 7.0 mg/dL [facility] Comment on above: The serum:whole bloo d ethanol ratio is approximately 1.14and varies slightly with hematocrit. Medical Alcohol reference interval and critical value innon-tolerant individuals; 50 - 100 Impairment 100 Intoxication 100 - 250 Severe Poisoning 250 - 400 Deep/possible fatal coma Follitropin Qnon 11-27-2021 Follicle Stimulating Hormone 6.1 mIU/mL Normal [facility] Comment on above: Result Comment: ADUL T MALES: 1.3 TO 19.3 MIU/ML ADULT FEMALES: FOLLICULLAR: 3.9 TO 8.8 MIU/ML MIDCYCLE PEAK: 4.5 TO 22.5 MIU/ML LUTEAL: 1.8 TO 5.1 MIU/ML POSTMENOPAUSAL: 16.7 TO 114.0 MIU/ML Performed By: #### 1 [id number] #### [facility] [address] [place] [address] Cytology report Cyto stain.t hin prep Doc (Cvx/Vag)on 11-17-2021 HPV DNA Negative Normal Negative [facility] Comment on above: Performed By: #### 4 [id number] #### [facility] [address] [place] [address] Thinprep Pap Diagnosticon Cytology report (cervical/vaginal) GLORIA MAYES ([id number] YRS F [id number] RM/BD ORDERING PHYSICIAN: ASTER LONGORIAESSION#:[id number] RESULT TRANSMITTED: 10/26/17 1709CYTOLOGY REPORT - THIN PREP TECHNIQUECLINICAL HISTORYLMP: NOT PROVIDEDHIGH RISK? NO? NOCOMMENT: HPVHR IF ASCUSSPECIMEN SOURCE:CERVICAL,ENDOCERVI PAVEL;VIALSTATEMENT OF SPECIMEN ADEQUACY:Specimen satisfactory for interpretation- Endocervical component absent.DIAGNOSIS:NEGATIVE FOR INTRAEPITHELIAL LESION OR MALIGNANCY. DCT:KL :DCT By: ANGELA FORD M.D. AT [facility] 10/26/17 (Electronic Signature)COMMENT:The [facility]THIS SPECIMEN HAS BEEN ANALYZED BY THE THINPREP IMAGING SYSTEM(freshbag),AN AUTOMATED IMAGING SYSTEM, WHICH ASSISTS THE LABORATORY IN EVALUATING CELLSON THINPREP PAP TEST. FOLLOWING AUTOMATED IMAGING TO DETECT CELLS OF INTEREST,SELECTED HARRIS FROM EVERY SLIDE ARE REVIEWED BY A INSTRUCTIONAL RESOURCE TEACHER. IFINDICATED, THE SLIDE IS REFERRED TO A PATHOLOGIST FOR FURTHER EVALUATION.THE PAP SMEAR IS A SCREENING TEST WITH AN IRREDUCIBLE FALSE-NEGATIVE RATE,THE CONSEQUENCES OF WHICH CAN BE MINIMIZED BY OBTAINING AN ANNUAL PAP SMEAR.FOOTNOTE ADDED ON 10/26/17 AT 1709 BY DISCERNEND OF REPORTEND OF REPORT Normal [facility] Vital Signs Date Time Vital Sign Value Performing Clinician Nydia henning 04-24-2025 12:50-0400 Body temperature 97.9 [degF] Dr. Krystal Kelly DO Work Phone: [facility] 04-24-2025 12:50-0400 Diastolic blood pressure 61 mm[Hg] Dr. Krystal Kelly DO Work Phone: [facility] 04-24-2025 12:50-0400 Heart rate 72 /min Dr. Krystal Kelly DO Work Phone: [facility] 04-24-2025 12:50-0400 Respiratory rate 16 /min Dr. Krystal Kelly DO Work Phone: [facility] 04-24-2025 12:50-0400 SaO2% (BldA) [Mass fraction] 97 % Dr. Krystal Kelly DO Work Phone: [facility] 04-24-2025 12:50-0400 Systolic blood pressure 91 mm[Hg] Dr. Krystal Kelly DO Work Phone: [facility] 04-24-2025 11:24-0400 Body height 159.[address] Krystal Kelly DO Work Phone: [facility] 04-24-2025 11:24-0400 Body mass index (BMI) [Ratio] 27.3 kg/m2 Dr. Krystal Kelly DO Work Phone: [facility] 04-24-2025 11:24-0400 Body weight [address] Krystal Kelly DO Work Phone: [facility] 05-28-2023 00:27-0400 Heart rate 76 /min [facility] 05-28-2023 00:27-0400 Respiratory rate 16 /min [facility] 05-28-2023 00:27-0400 SaO2% (BldA) [Mass fraction] 98 % [facility] 05-27-2023 20:58-0400 Body height 160.02 cm [facility] 05-27-2023 20:58-0400 Body mass index (BMI) [Ratio] 28.8 kg/m2 [facility] 05-27-2023 20:58-0400 Body temperature 98.6 [degF] [facility] 05-27-2023 20:58-0400 Body weight 73.9 kg [facility] 05-27-2023 20:58-0400 Diastolic blood pressure 60 mm[Hg] [facility] 05-27-2023 20:58-0400 Systolic blood pressure 103 mm[Hg] [facility] Encounters Encounter Date Encounter Type Care Provider Facility Start: 05-08-2025 End: 05-08-2025 Patient encounter procedure Carla VELAZQUEZ -[facility] Work Phone: Start: 05-08-2025 End: 05-08-[address] Krystal Kelly DO Work Phone: [facility] Gastro[facility] Start: 04-24-2025 Non-patient / Non-visit Matty Reich nd DO -[facility] Start: 04-24-2025 End: 04-24-2025 Admission to same day surgery center Matty Marcos DO -Endoscopy Work Phone: Start: 04-24-2025 End: 04-24-[address] Krystal Kelly DO Work Phone: [facility] Work Phone: Start: 04-02-2025 End: 04-02-[address] Krystal Kelly DO Work Phone: [facility] Work Phone: Start: 04-02-2025 End: 04-02-2025 Patient encounter procedure Carla Borja PA -Cat Scan [facility] Work Phone: Start: 04-02-2025 End: 04-02-2025 ambulatory Carla Borja Facility:[facility] Start: 02-25-2025 End: 02-25-[address] Krystal Kelly DO Work Phone: [facility] Work Phone: Start: 02-25-2025 End: 02-25-2025 Patient encounter procedure Carla VELAZQUEZ -Ultrasound, [facility] Work Phone: Start: 02-25-2025 End: 02-25-2025 ambulatory Carla Borja Facility:[facility] Start: 02-12-2025 End: 02-12-2025 Patient encounter procedure Carla VELAZQUEZ [facility] Work Phone: Start: 02-12-2025 End: 02-12-[address] Krystal Kelly DO Work Phone: [facility] Work Phone: Start: 02-12-2025 End: 02-12-2025 ambulatory Carla Borja Facility:[facility] Start: 02-05-2025 End: 02-05-[address] Krystal Kelly DO Work Phone: [facility] Work Phone: Start: 02-05-2025 End: 02-05-[address] Krystal Kelly DO -Nuclear Medicine, [facility] Work Phone: Start: 02-05-2025 End: 02-05-2025 ambulatory Krystal Kelly Facility:[facility] Start: 08-09-2024 End: 08-09-2024 ambulatory MASSIMO LONGORIA Facility:[facility] Start: 12-20-2023 Telephone encounter Maricruz Flanagan MD Work Phone: Endocrinology Comment on above: Referral documentati on (Yara Romano CNP) Start: 11-25-2023 End: 11-25-2023 ambulatory [facility] Work Phone: Start: 11-25-2023 End: 11-25-2023 Patient encounter procedure [facility] Work Phone: Start: 10-04-2023 End: 10-04-2023 ambulatory [facility] Work Phone: Start: 10-04-2023 End: 10-04-2023 Patient encounter procedure [facility], Stewart Famly [facility] Start: 08-13-2023 End: 08-13-2023 Patient encounter procedure [facility] Work Phone: Start: 06-29-2023 End: 06-29-2023 ambulatory [facility] Work Phone: Start: 06-29-2023 End: 06-29-2023 Patient encounter procedure [facility] Breast [facility] Work Phone: Start: 05-27-2023 End: 05-28-2023 Emergency department patient visit [facility] Work Phone: Start: 01-27-2023 End: 01-27-2023 ambulatory [facility] Work Phone: Start: 01-27-2023 End: 01-27-2023 Patient encounter procedure [facility] Start: 01-18-2023 End: 01-18-2023 Patient encounter procedure [facility] Start: 10-06-2022 ambulatory PCP PCP UNKNOW N PHYSICIAN PHYSICIAN [facility] Start: 01-12-2022 End: 01-12-2022 Patient encounter procedure [facility] Start: 11-27-2021 End: 11-27-2021 ambulatory PHYSICIAN [facility] Start: 11-18-2021 ambulatory MASSIMO LONGORIA [facility] Start: 11-18-2021 Encounter for gynecological examination (general) (routine) without abnormal findings MASSIMO LONGORIA [facility] Start: 11-17-2021 End: 11-17-2021 ambulatory PHYSICIAN [facility] Start: 12-23-2017 End: 12-23-2017 Ambulatory Marco Osorio Facility:[facility] Start: 10-22-2017 End: 10-22-2017 Ambulatory MASSIMO MOORMA Facility:[facility] Procedures Date Procedure Procedure Detail Performing Clinician Start: 04-24-[address] Krystal guerrero DO Work Phone: Start: 04-02-2025 Computed tomography of abdomen and pelvis with contrast Dr. Krystal Kelly DO Work Phone: Start: 02-25-[address] Krystal guerrero DO Work Phone: Start: 02-05-2025 Radionuclide gastric emptying study Dr. Krystal Kelly DO Work Phone: Start: 06-29-2023 Mammography Start: 05-27-2023 CT of head without contrast Start: 01-27-2023 Mammography Start: 01-27-2023 Ultrasonography of breast Start: 01-18-2023 Screening mammography Start: 01-12-2022 Screening mammography Plan of Treatment Date Care Activity Detail Author Start: 04-24-2025 Egd removal tumor polyp/other lesion snare tech EGD REMOVE LESION SNARE [facility] Start: 04-24-2025 Egd transoral biopsy single/multiple EGD BIOPSY SINGLE/MULTIPLE [facility] Start: 04-24-2025 Patient discharge [facility] Start: 11-07-2023 Depression Assessment Depression Ass essment [facility] Start: 10-04-2023 [facility] Start: 07-08-2023 Influenza vaccination Influenza Vacc ine (#1) [facility] Start: 2019 Shingrix Vaccine (1 of 2) May grix Vaccine (1 of 2) [facility] Start: 2014 Diabetes Screening Diabetes Screenin g [facility] Start: 2014 Lipid panel Lipid Screening [facility] Start: 2014 Screening for malign ant neoplasm of colon [facility] Start: 2009 Screening for malign ant neoplasm of breast Mammogram Screening [facility] Start: 1999 Screening for malign ant neoplasm of cervix HPV Testing [facility] Start: 1990 Screening for malign ant neoplasm of cervix Pap Testing [facility] Start: 1988 Urine microalbumin profile DTaP,Tdap,Td Vaccine (1 - Tdap) [facility] Start: 1987 Hepatitis C screening Hepatitis C Sc sofiya [facility] Start: 1987 HIV screening HIV Screening [facility] Start: 1969 Covid-19 Vaccine (#1) Covid-19 Vacci ne (#1) [facility] Start: 1969 Hepatitis B Vaccine (1 of 3 - 3-dose series) Hepatitis B Vaccine (1 of 3 - 3-dose series) [facility] Clam IgE Ab [Units/volume] in Serum [facility] Codfish IgE Ab [Units/volume] in Serum [facility] [place] IgE Ab [Units/volume] in Serum [facility] Cow milk IgE Ab [Units/volume] in Serum [facility] Egg white IgE Ab [Units/volume] in Serum [facility] Patient Education ED Concussion [facility] Work Phone: Patient referral [facility] Work Phone: Peanut IgE Ab [Units/volume] in Serum [facility] Scallop RAST [facility] Sesame seed RAST [facility] Shrimp IgE Ab [Units/volume] in Serum [facility] Soybean IgE Ab [Units/volume] in Serum [facility] US Gallbladder [facility]ST [facility] Wheat IgE Ab [Units/volume] in Serum [facility] Payers Date Payer Category Payer Private Health Insurance [id number] 2024 Self-pay [id number] 2024 Private Health Insurance [id number] 2017 Unknown 2016 Unknown [id number] 1969 Unknown [id number] 2.16. [id number] 1969 Unknown [id number] 2.16. [id number] 1969 Unknown [id number] 2.16.8 [id number] 1969 Unknown [id number] 2.16.84 [id number] Unknown [id number] 2.16.8 [id number] Unknown [id number] 2.16.8 [id number] Unknown [id number] 2.16.8 [id number] Unknown [id number] 2.16.8 [id number] Unknown [id number] 2.16.8 [id number] Unknown [id number] 2.16.8 40.1.089266.3.579.2.462 Unknown [id number] 2.16.8 [id number] Unknown [id number] 2.16.8 [id number] Unknown [id number] 2.16.8 [id number] Social History Date Type Detail Facility Start: 03-13-2020 End: 05-27-2023 Tobacco smoking status NHIS Unknown if ever smoked [facility] Start: 07-01-2015 Rare [facility] Start: 07-01-2015 None [facility] Start: 07-01-2015 Spouse/ Signif icant Other [facility] Start: 03-13-2020 Non-smoker [facility] Start: 1970 Sex Assigned At Female [facility] Start: 1970 Sex Assigned At Not on file [facility] Gender identity Not on file [facility] in Start: 05-27-2023 End: 04-22-2025 Tobacco smoking status NHIS Never smoked tobacco (finding) [facility] Start: 02-07-2025 End: 02-28-2025 Sex Female (finding) [facility] NEGATED: Highlighted row Not [facility] Goals Date Patient Goal Desired Activity /State Mental Status Date Assessment Result Facility 04-24-2025 Cognitive function Voice/Name [facility] Work Phone: Clinical Notes 12-20-2023 to 04-24-2025 Note Date & Type Note Facility 04-24-2025 History and physical note Note Date/Time April 24, 2025 11:24am [facility] Medical Records Department [address] [place] [address] History & Physical Exam 04/24/25 1122 MR#: [id number] Acct: [id number] Name: GLORIA MAYES Rep #:[id number] : 1970 55 From: Matty Friend DO PCP: Dr. Krystal Kelly, DO Status:[facility] Location: [place] [address] HPI - General General Date of Admission: 04/24/25 Date of Service: 04/24/25 Chief Complaint: Abdominal pain HPI Narrative Chief Complaint: epigastric pain [facility] admission 2014 with acute pancreatitis and duodenitis. RAST food allergy 10.04.23: corn class II, cows milk class I, egg white class 0/I, peanut class II, sesame seed class II, soybean 0/I, walnut class 0/I, wheatclass I, Colonoscopy 03.17.20: - Hemorrhoids found on perianal exam. - The entire examined colon is normal on direct and retroflexion views. - Diverticulosis in the sigmoid colon. - No specimens collected. Pt has been having ongoing epigastric pain since her 20s. Over time, it has increased in frequency and severity. In 2014, she was hospitalized for acute pancreatitis and duodenitis. She has been on PPIs every since but recently she discontinued it after tapering it down. She now takes famotidine which she does not think works as well. Her pain is stabbing and in the epigastric region. She will take Benadryl when this happens which relieves her pain within 30 minutes. It is typically worse after eating. She has identified numerous foods that lead to these symptoms including protein drinks, tomatoes and strawberries. [facility] Medical History Wears glasses Depression Alcohol use Fatty liver Injury of head and neck Loss of consciousness Blackout Non-smoker History of stress test GERD (gastroesophageal reflux disease) Anxiety Home Medications ?Medication ?Instructions ?Recorded ?Last Taken ?Type escitalopram oxalate 20 mg tablet 20 mg PO QHS 0 Unknown History buspirone 5 mg tablet 5 mg PO BID 02/12/25 Unknown History apbzksmz-pio-ixoow acid 0.4 1 tab PO QDAY 02/12/25 Unk nown History mg-lycopene 300 mcg-lutein 250 mcg tablet (Centrum Silver) pantoprazole 40 mg tablet,delayed 40 mg PO DAILY 04/22 Unknown History release vitamin B complex (Vitamins B 1 tab PO QHS 04/22/25 Un known History Complex tablet) Allergy/AdvReac Type Severity Reaction Status Date / Time aspirin Allergy Swelling Verified 04/22/25 10:56 honey Allergy Swelling Verified 04/22/25 10:56 ibuprofen (From Motrin) Allergy Swelling Verified 04/22/25 10:56 strawberry Allergy Swelling Verified 04/22/25 10:56 Surgical History History of esophagogastroduodenoscopy (EGD) Hx of colonoscopy Social History Smoking Status: Never smoker ROS Constitutional Constitutional: Denies fatigue, fever(s), poor appetite, weight gain or weight loss Gastrointestinal Gastrointestinal: Denies belching, bloating, change in bowel habits, change in stool character, chewing difficulty, coffee ground emesis, constipation, cramping, diarrhea, dyspepsia, dysphagia, early satiety, excessive flatus, fecalincontinence, heartburn, hematemesis, hematochezia, hemorrhoids, loose stools, melena, nausea, odynophagia, rectal bleeding, tenesmus, vomiting or weight changes Physical Exam Const alert, oriented x3, no apparent distress and healthy appearing General Appearance: cooperative GI normal to inspection, nondistended, normoactive bowel sounds, soft to palpation,non-tender and non-distended Percussion: normal to percussion Rectal Exam: deferred Assessment & Plan Assessment/Plan (1) Epigastric abdominal pain: (2) Nausea & vomiting: PLAN: Assessment and Plan Assessment and Plan (1) Abdominal symptoms: (2) Epigastric abdominal pain: Status: Acute Plan: This is a 54 yo female pt here for evaluation of epigastric pain x30 years. Pt has a PMHx of acute pancreatitis and duodenitis in 2015. She has been on PPI every since this hospitalization until recently when she discontinued it. The frequency and severity of her symptoms has increased. She will undergo EGD to assess her upper GI tract to rule out inflammation. I will also order blood workwith CMP and CBC. I will order RUQ US to assess her biliary structures and ducts. She is agreeable to this plan. -RUQ US -EGD -CMP and CBC Orders: Orders Gallbladder Today R10.13 - Epigastric pain Comprehensive Metabolic Profil Today R10.13 - Epigastric pain CBC W/Diff, Automated Today R10.13 - Epigastric pain Medications: Discontinued ondansetron Discontinued Reason: Pt no longer taking 4 mg PO Q6H PRN 10 tabs 0RF nauseaand vomiting 04/24/25 1124 <Electronically signed by Matty Rodríguez DO> Cosigner Signature (if applicable): CC: Dr. Krystal Kelly, ; Matty Rodríguez DO~ Signed [facility] Work Phone: 1(800) 783-820006-18-2025 Consult note [facility] Medical Records Department [address] [place] [address] Anesthesia Postop Eval I 04/24/25 1243 MR#: [id number] Acct: [id number] Name: GLORIA MAYES Rep #:[id number] : 1970 55 From: Robles Nino PCP: Dr. Krystal Kelly DO Status:[facility] Y Race: C Location: [place] [address] Anesthesia: Postop Eval I Current Vital Signs Temperature: 97 F Pulse Rate: 68 Blood Pressure: 79/59 Respiratory Rate: 16 Pulse Ox: 97 Oxygen Delivery Method: Room Air Assessment Airway patent: Yes Spontaneous unlabored respirations: Yes Mental status: Asleep nausea: No Vomiting: No Anesthesia Complication: No Fluid Hydration Crystalloid volume administer (ml): 300 Total IV fluid infused: 300 Progress Note Anesthesia document: Postop Eval 1 completed: Yes 04/24/25 1244 > Date _ Robles Lyon Signature: Date CC: ~ Signed [facility]06-18-2025 Procedure note [facility] Medical Records Department [address] [place] [address] EGD Report MR#: [id number] Acct: [id number] Name: GLORIA MAYES Rep #:[id number] : 1970 55 From: Matty Rodríguez DO PCP: Dr. Krystal Kelly DO Status:[facility] Patient Name: Gloria Mayes Procedure Date: 04/24/2025 12:14 PM Date of : 1970 Age: 55 Procedure: Upper GI endoscopy Indications: Suspected esophageal reflux Providers: Matty Rodríguez DO Referring MD: Krystal Kelly Medicines: Monitored Anesthesia Care Patient Profile: This is a 55 year old female. Refer to note in patient chart for documentation of history and physical. Patient has symptoms of acute epigastric abdominal pain. Complications: No immediate complications. Procedure: Pre-Anesthesia Assessment: - Prior to the procedure, a History and Physical was performed, and patient medications and allergies were reviewed. The patient is competent. The risks and benefits of the procedure and the sedation options and risks were discussed with the patient. All questions were answered and informed consent was obtained. Patient identification and proposed procedure were verified by the physician in the pre-procedure area. Mental Status Examination: alert and oriented. Airway Examination: normal oropharyngeal airway and neck mobility. Respiratory Examination: clear to auscultation. CV Examination: normal. Prophylactic Antibiotics: The patient does not require prophylactic antibiotics. Prior Anticoagulants: The patient has taken no anticoagulant or antiplatelet agents except for NSAID medication. ASA Grade Assessment: II - A patient with mild systemic disease. After reviewing the risks and benefits, the patient was deemed in satisfactory condition to undergo the procedure. The anesthesia plan was to use monitored anesthesia care (MAC). Immediately prior to administration of medications, the patient was re-assessed for adequacy to receive sedatives. The heart rate, respiratory rate, oxygen saturations, blood pressure, adequacy of pulmonary ventilation, and response to care were monitored throughout the procedure. The physical status of the patient was re-assessed after the procedure. After obtaining informed consent, the endoscope was passed under direct vision. Throughout the procedure, the patient's blood pressure, pulse, and oxygen saturations were monitored continuously. The Endoscope was introduced through the mouth, and advanced to the second part of duodenum. The upper GI endoscopy was accomplished without difficulty. The patient tolerated the procedure well. Scope In: 12:24:25 PM Scope Out: 12:31:04 PM Total Procedure Duration Time 0 hours 6 minutes 39 seconds Findings: The Z-line was irregular and was found 40 cm from the incisors. Biopsies were taken with a cold forceps for histology. Verification of patient identification for the specimen was done. Estimated blood loss was minimal. Multiple hyperplastic polyps with no bleeding and no stigmata of recent bleeding were found in the entire examined stomach. The polyp was removed with a hot snare. Resection and retrieval were complete. Verification of patient identification for the specimen was done. Estimated blood loss was minimal. No gross lesions were noted in the first portion of the duodenum. Impression: - Z-line irregular, 40 cm from the incisors. Biopsied. - Multiple gastric polyps. Resected and retrieved. - No gross lesions in the first portion of the duodenum. Recommendation: - Discharge patient to home. - Resume previous diet. - Continue present medications. - Await pathology results. - For multiple gastric polyps found during an upper endoscopy, the primary recommendation is to have the largest polyp removed entirely and obtain inside sales representative biopsies from the remaining polyps. This approach helps determine the nature of the polyps (e.g., hyperplastic, adenomatous) and assess the risk of dysplasia or cancer. Further management, including surveillance or additional interventions, will depend on the polyp type and pathology results. Procedure Code(s): --- Professional --- 79795, Esophagogastroduodenoscopy, flexible, transoral; with removal of tumor(s), polyp(s), or other lesion(s) by snare technique 58239, 59,51, Esophagogastroduodenoscopy, flexible, transoral; with biopsy, single or multiple CPT copyright 2021 [employer]. All rights reserved. The codes documented in this report are preliminary and upon loan review officer review may be revised to meet current compliance requirements. Matty Rodríguez DO 04/24/2025 12:40:22 PM This report has been signed electronically. Number of Addenda: 0 Note Initiated On: 04/24/2025 12:14 PM 04/24/25 1240 Date _ Matty Cardenas Signature: Date (if indicated) CC: Dr. Krystal Kelly DO; Matty Rodríguez DO ~ Date Dictated: 04/24/25 1214 Date Transcribed: Business Services Clerk: RF Signed [facility]06-18-2025 Procedure note [facility] Medical Records Department [address] [place] [address] Operative Report - CC Letter MR#: [id number] Acct: [id number] Name: GLORIA MAYES Rep #:[id number] : 1970 55 From: Matty Rodríguez DO PCP: Dr. Krystal Kelly DO Status:[facility] 04/24/2025 Krystal Kelly [address] [place] [address] Re : Upper GI endoscopy procedure for Gloria Mayes Dear Dr. Kelly This procedure was performed on Tuesday, April 24, 2025. My impressions and recommendations are as follows: Impressions : - Z-line irregular, 40 cm from the incisors. Biopsied. - Multiple gastric polyps. Resected and retrieved. - No gross lesions in the first portion of the duodenum. Recommendations : - Discharge patient to home. - Resume previous diet. - Continue present medications. - Await pathology results. - For multiple gastric polyps found during an upper endoscopy, the primary recommendation is to have the largest polyp removed entirely and obtain inside sales representative biopsies from the remaining polyps. This approach helps determine the nature of the polyps (e.g., hyperplastic, adenomatous) and assess the risk of dysplasia or cancer. Further management, including surveillance or additional interventions, will depend on the polyp type and pathology results. My findings are described in the full procedure note, which is enclosed. If I can be of further assistance, please feel free to contact me at . Sincerely, Matty Rodríguez DO 04/24/2025 12:40:22 PM This report has been signed electronically. 04/24/25 1240 Date _ Matty Rodríguez DO Cosigner Signature: Date (if indicated) CC: Dr. Krystal Kelly DO; Matty Rodríguez, ~ Date Dictated: 04/24/25 1214 Date Transcribed: Business Services Clerk: RF Signed [facility]06-18-2025 Consult note [facility] Medical Records Department [address] [place] [address] Pre-Anesthesia Evaluation 04/24/25 1204 MR#: [id number] Acct: [id number] Name: GLORIA MAYES Rep #:[id number] : 1970 55 From: Raymundo iGllespie MD PCP: Dr. Krystal Kelly DO Status:REG [facility] Y Race: C Location: [place] [address] Raymundo Gillespie MD on 04/24/25 at 1214 Addendum Patient states that she has a gut sensitivity to eggs. She is able to eat them cooked in cake. 04/24/25 1214 tressa PRIDE> Date _ Raymundo Gillespie MD cc: ~* Signed ASA Classification* ASA Classification ASA Classification: 2 Assessment & Plan Anesthesia* Anesthesia Assessment Anesthesia Assessment: Discussed sedation and/or anesthesia options, risks, benefits, and alternatives with patient/parents/legal guardian/POA. Questions invited. The patient/parents/legal guardian/POA seems to understand and agrees to proceedwith anesthesia plan. Reviewed the physical assessment, medical history, allergy history and patient home medications list prior to surgery/procedure/anesthetic and documented any changes. Performed airway and anesthesia risk assessments. Anesthesia Type Anesthesia Type: MAC History Source History Obtained from:: Patient and Chart Anesthesia Focused Assessment* Temperature: 97.1 F Pulse Rate: 80 Blood Pressure: 109/70 Respiratory Rate: 16 Pulse Ox: 96 Oxygen Delivery Method: Room Air Airway Assessment Mouth opens: >3 cm Mallampati Score: II Teeth Condition: Intact Neck Range of motion (ROM): Full ROM Labs Anesthesia Preop lab: CBC WBC 8.2 K/mm3 (4.4-11.0) 02/12/25 16:07 02/12/25 RBC 4.36 M/mm3 (4.2-5.4) 02/12/25 16:07 02/12/25 Hgb 13.2 g/dL (12.0-15.0) 02/12/25 16:07 02/12/25 Hct 40.6 % (37-47) 02/12/25 16:07 02/12/25 Plt Count 404 K/mm3 (150-450) 02/12/25 16:07 02/12/25 CHEMISTRY Potassium 4.3 mmol/L (3.3-5.1) 02/12/25 16:07 02/12/25 Sodium 139 mmol/L (133-145) 02/12/25 16:07 02/12/25 Magnesium 1.8 mg/dL (1.8-2.4) 07/02/15 05:20 07/02/15 Phosphorus 2.7 mg/dL (2.5-4.9) 07/02/15 05:20 07/02/15 BUN 17 mg/dL (4-19) 02/12/25 16:07 02/12/25 Creatinine 0.91 mg/dL (0.70-1.20) 02/12/25 16:07 02/12/25 Glucose 89 mg/dL (70-99) 02/12/25 16:07 02/12/25 TSH 2.84 uIU/mL (0.358-3.74) 11/25/23 12:38 COAG Pre-Assessment Diagnosis/Proposed Procedure Planned Operative Procedure(s): EGD Anesthesia History Anesthesia History - slitter service and setter: Anesthesia History - slitter service and setter Hx Hospitalization No 04/22/25 11:00 Any Problems With Anesthesia No 04/22/25 11:00 Cholinesterase deficiency No 04/22/25 11:00 You/Your Family Experience No 04/22/25 11:00 fever (hyperthermia) with Relationship Recent Exposure to Contagious No 04/24/25 11:24 Disease Does patient have nerve No 04/22/25 11:00 stimulator Patient instructed to have device shut off --Does patient have Pacemaker No 04/24/25 11:24 or ICD? When Was Last Pacemaker Check QUESTION #4 FULL TEXT: You/Your Family Experience fever (hyperthermia) with Anesthesia Last Oral Intake Last Oral intake: Last Oral Intake NPO since 19:00 04/24/25 11:24 Meds taken in AM with sips of Yes 04/24/25 11:24 water? Meds patient instructed to 0615 04/24/25 11:24 take am of surgery protonix, buspar Any additional information?: Yes NPO since: 07:15 (Patient had black coffee up till 7:15 AM.) Meds taken in AM with sips of water?: Yes PONV PONV - slitter service and setter: PONV - slitter service and setter Female Yes 04/22/25 11:00 HX of Motion Sickness Yes 04/22/25 11:00 HX of N/V After Surgery No 04/22/25 11:00 Non-Smoker Yes 04/22/25 11:00 Duration of Surgery greater No 04/22/25 11:00 than 60 minutes Number of Risk Factors 3 04/22/25 11:00 PONV Score Moderate Risk 04/22/25 11:00 Height & Weight Height & Weight: Anesthesia: Height & Weight Height 5 ft 2.99 in 04/24/25 11:24 Weight: 70 kg 04/24/25 11:24 Body Mass Index (BMI) 27.3 04/24/25 11:24 Respiratory Assessment Respiratory Assessment - slitter service and setter: Respiratory Tract Infection Hx - slitter service and setter Hx Respiratory Tract Infection No 04/22/25 11:00 STOP Sleep Apnea STOP Sleep Apnea - slitter service and setter: STOP Sleep Apnea - slitter service and setter Hx Hypertension No 04/22/25 11:00 Hx Sleep Apnea No 04/22/25 11:00 CPAP BIPAP Do you snore loudly (louder No 04/22/25 11:00 than talking or can be heard Do you often feel tired/ Yes 04/22/25 11:00 fatigued/ sleepy during daytime? Has anyone observed you stop No 04/22/25 11:00 breathing during sleep? STOP Results Negative 04/22/25 11:00 QUESTION #5 FULL TEXT : Do you snore loudly (louder than talking or can be heard through closeddoors)? Tobacco Use History Tobacco Use History - slitter service and setter: Tobacco Use History - slitter service and setter Tobacco Use Smoking Status Never smoker 04/22/25 11:00 Hx Tobacco Use No 04/22/25 11:00 Years Smoking Packs Smoked per Day Smoking Cessation Date was within the last 15 years Hx Smoking Cessation Date Hx Smoking Cessation Counseling Hematologic Medial History Hematologic Hx - slitter service and setter: Hematologic Medical Hx - [facility] Hx of Blood Transfusion No 04/22/25 11:00 Hx of Transfusion in last 3 No 04/22/25 11:00 Months Date of Last Transfusion (if within last 3 months) Ever experience any problems No 04/22/25 11:00 with transfusion(s)? Specify any problems Hx of Preganancy in last 3 No 04/22/25 11:00 Months Nurse Filling Out Transfusion DSCHRIBER 04/22/25 11:00 & Questions: Date: 04/22/25 04/22/25 11:00 Time: 11:02 04/22/25 11:00 Patient unable to answer at this time (ie. confused, unrespo /Reproduction History /Reproductive History - slitter service and setter: /Reproductive Hx- slitter service and setter Hx Now No 04/22/25 11:00 Gestational Age (in weeks): EDC: Hx Hx Para Hx Section SAB No 04/22/25 11:00 Active Medications Active Medications: Current Medications Generic Name Dose Route Start Last Admin Trade Name Freq PRN Reason Stop Dose Admin Lactated Ringer's 1,000 mls @ 15 mls/hr 04/24/25 11:15 04/24/25 11:31 IV 15 mls/hr .Q48H CARMEN Administration PFSH Medical History Wears glasses Depression Alcohol use Fatty liver Injury of head and neck Loss of consciousness Blackout Non-smoker History of stress test GERD (gastroesophageal reflux disease) Anxiety Home Medications ?Medication ?Instructions ?Recorded ?Last Taken ?Type escitalopram oxalate 20 mg tablet 20 mg PO QHS 0 Unknown History buspirone 5 mg tablet 5 mg PO BID 02/12/25 5 06:15 History xnmmbsxo-off-abdhd acid 0.4 1 tab PO QDAY 02/12/25 Unk nown History mg-lycopene 300 mcg-lutein 250 mcg tablet (Centrum Silver) pantoprazole 40 mg tablet,delayed 40 mg PO DAILY 04/2204/24/25 06:15 History release vitamin B complex (Vitamins B 1 tab PO QHS 04/22/25 Un known History Complex tablet) Allergy/AdvReac Type Severity Reaction Status Date / Time aspirin Allergy Swelling Verified 04/22/25 10:56 honey Allergy Swelling Verified 04/22/25 10:56 ibuprofen (From Motrin) Allergy Swelling Verified 04/22/25 10:56 strawberry Allergy Swelling Verified 04/22/25 10:56 Surgical History History of esophagogastroduodenoscopy (EGD) Hx of colonoscopy Social History Smoking Status: Never smoker Review of Systems (Anesthesia) ROS Narrative System reviewed and no additional complaints, except as documented. 04/24/25 1211 tressa PRIDE> Date _ Raymundo Gillespie MD Cosigner Signature: Date CC: ~ Signed [facility]06-18-2025 History and physical note [facility] Medical Records Department [address] [place] [address] History & Physical Exam 04/24/25 1122 MR#: [id number] Acct: [id number] Name: GLORIA MAYES Rep #:[id number] : 1970 55 From: Matty Friend DO PCP: Dr. Krystal Kelly DO Status:[facility] Location: [place] [address] HPI - General General Date of Admission: 04/24/25 Date of Service: 04/24/25 Chief Complaint: Abdominal pain HPI Narrative Chief Complaint: epigastric pain [facility] admission 2014 with acute pancreatitis and duodenitis. RAST food allergy 23: corn class II, cows milk class I, egg white class 0/I, peanut class II,sesame seed class II, soybean 0/I, walnut class 0/I, wheatclass I, Colonoscopy 5..20: - Hemorrhoids found on perianal exam. - The entire examined colon is normal on direct and retroflexion views. - Diverticulosis in the sigmoid colon. - No specimens collected. Pt has been having ongoing epigastric pain since her 20s. Over time, it has increased in frequency and severity. In 2014, she was hospitalized for acute pancreatitis and duodenitis. She has been on PPIs every since but recently she discontinued it after tapering it down. She now takes famotidine which she does not think works as well. Her pain is stabbing and in the epigastric region. She will take Benadryl when this happens which relieves her pain within 30 minutes. It is typically worse aftereating. She has identified numerous foods that lead to these symptoms including protein drinks, tomatoes and strawberries. [facility] Medical History Wears glasses Depression Alcohol use Fatty liver Injury of head and neck Loss of consciousness Blackout Non-smoker History of stress test GERD (gastroesophageal reflux disease) Anxiety Home Medications ?Medication ?Instructions ?Recorded ?Last Taken ?Type escitalopram oxalate 20 mg tablet 20 mg PO QHS 0 Unknown History buspirone 5 mg tablet 5 mg PO BID 02/12/25 Unknown History emrnusxh-swm-barrv acid 0.4 1 tab PO QDAY 02/12/25 Unk nown History mg-lycopene 300 mcg-lutein 250 mcg tablet (Centrum Silver) pantoprazole 40 mg tablet,delayed 40 mg PO DAILY 04/22 Unknown History release vitamin B complex (Vitamins B 1 tab PO QHS 04/22/25 Un known History Complex tablet) Allergy/AdvReac Type Severity Reaction Status Date / Time aspirin Allergy Swelling Verified 04/22/25 10:56 honey Allergy Swelling Verified 04/22/25 10:56 ibuprofen (From Motrin) Allergy Swelling Verified 04/22/25 10:56 strawberry Allergy Swelling Verified 04/22/25 10:56 Surgical History History of esophagogastroduodenoscopy (EGD) Hx of colonoscopy Social History Smoking Status: Never smoker ROS Constitutional Constitutional: Denies fatigue, fever(s), poor appetite, weight gain or weight loss Gastrointestinal Gastrointestinal: Denies belching, bloating, change in bowel habits, change in stool character, chewing difficulty, coffee ground emesis, constipation, cramping, diarrhea, dyspepsia, dysphagia, earlysatiety, excessive flatus, fecalincontinence, heartburn, hematemesis, hematochezia, hemorrhoids, loose stools, melena, nausea, odynophagia, rectal bleeding, tenesmus, vomiting or weight changes Physical Exam Const alert, oriented x3, no apparent distress and healthy appearing General Appearance: cooperative GI normal to inspection, nondistended, normoactive bowel sounds, soft to palpation,non-tender and non-distended Percussion: normal to percussion Rectal Exam: deferred Assessment & Plan Assessment/Plan (1) Epigastric abdominal pain: (2) Nausea & vomiting: PLAN: Assessment and Plan Assessment and Plan (1) Abdominal symptoms: (2) Epigastric abdominal pain: Status: Acute Plan: This is a 54 yo female pt here for evaluation of epigastric pain x30 years. Pt has a PMHx of acute pancreatitis and duodenitis in 2015. She has been on PPI every since this hospitalization until recently when she discontinued it. The frequency and severity of her symptoms has increased. She will undergo EGD to assess her upper GI tract to rule out inflammation. I will also order blood workwith CMP and CBC. I will order RUQ US to assess her biliary structures and ducts. She is agreeable to this plan. -RUQ US -EGD -CMP and CBC Orders: Orders Gallbladder Today R10.13 - Epigastric pain Comprehensive Metabolic Profil Today R10.13 - Epigastric pain CBC W/Diff, Automated Today R10.13 - Epigastric pain Medications: Discontinued ondansetron Discontinued Reason: Pt no longer taking 4 mg PO Q6H PRN 10 tabs 0RF nauseaand vomiting 04/24/25 1124 Cosigner Signature (if applicable): CC: Dr. Krystal Kelly DO; Matty Rodríguez DO~ Signed [facility]06-18-2025 [facility] Records Department [address] [place] [address] History Physical Exam 04/24/25 1122 MR#: [id number] Acct: [id number] Name: GLORIA MAYES Rep #: [id number] : 1970 55 From: Matty Rodríguez DO PCP: Dr. Krystal Kelly, DO Status:[facility] Location: [place] [address] HPI - General General Date of Admission: 04/24/25 Date of Service: 04/24/25 Chief Complaint: Abdominal pain HPI Narrative Chief Complaint: epigastric pain [facility] admission 2014 with acute pancreatitis and duodenitis. RAST food allergy 10.04.23: corn class II, cows milk class I, egg white class 0/I, peanut class II, sesame seed class II, soybean 0/I, walnut class 0/I, wheat class I, Colonoscopy 03.17.20: - Hemorrhoids found on perianal exam. - The entire examined colon is normal on direct and retroflexion views. - Diverticulosis in the sigmoid colon. - No specimens collected. Pt has been having ongoing epigastric pain since her 20s. Over time, it has increased in frequency and severity. In 2014, she was hospitalized for acute pancreatitis and duodenitis. She has been on PPIs every since but recently she discontinued it after tapering it down. She now takes famotidine which she does not think works as well. Her pain is stabbing and in the epigastric region. She will take Benadryl when this happens which relieves her pain within 30 minutes. It is typically worse after eating. She has identified numerous foods that lead to these symptoms including protein drinks, tomatoes and strawberries. [facility] Medical History Wears glasses Depression Alcohol use Fatty liver Injury of head and neck Loss of consciousness Blackout Non-smoker History of stress test GERD (gastroesophageal reflux disease) Anxiety Home Medications ???Medication ???Instructions ???Recorded ???Last Taken ???Type escitalopram oxalate 20 mg tablet 20 mg PO QHS 03/13/20 Unknown His tory buspirone 5 mg tablet 5 mg PO BID 02/12/25 Unknown Histo ry gjcwyflm-ker-qyiff acid 0.4 1 tab PO QDAY 02/12/25 Unknown His tory mg-lycopene 300 mcg-lutein 250 mcg tablet (Centrum Silver) pantoprazole 40 mg tablet,delayed 40 mg PO DAILY 04/22/25 Unknown H istory release vitamin B complex (Vitamins B 1 tab PO QHS 04/22/25 Unknown Hist ory Complex tablet) Allergy/AdvReac Type Severity Reaction Status Date / Time aspirin Allergy Swelling Verified 04/22/25 10:56 honey Allergy Swelling Verified 04/22/25 10:56 ibuprofen (From Motrin) Allergy Swelling Verified 04/22/25 10:56 strawberry Allergy Swelling Verified 04/22/25 10:56 Surgical History History of esophagogastroduodenoscopy (EGD) Hx of colonoscopy Social History Smoking Status: Never smoker ROS Constitutional Constitutional: Denies fatigue, fever(s), poor appetite, weight gain or weight loss Gastrointestinal Gastrointestinal: Denies belching, bloating, change in bowel habits, change in stool character, chewing difficulty, coffee ground emesis, constipation, cramping, diarrhea, dyspepsia, dysphagia, early satiety, excessive flatus, fecal incontinence, heartburn, hematemesis, hematochezia, hemorrhoids, loose stools, melena, nausea, odynophagia, rectal bleeding, tenesmus, vomiting or weight changes Physical Exam Const alert, oriented x3, no apparent distress and healthy appearing General Appearance: cooperative GI normal to inspection, nondistended, normoactive bowel sounds, soft to palpation, non-tender and non- distended Percussion: normal to percussion Rectal Exam: deferred Assessment Plan Assessment/Plan (1) Epigastric abdominal pain: (2) Nausea vomiting: PLAN: Assessment and Plan Assessment and Plan (1) Abdominal symptoms: (2) Epigastric abdominal pain: Status: Acute Plan: This is a 54 yo female pt here for evaluation of epigastric pain x30 years. Pt has a PMHx of acute pancreatitis and duodenitis in 2015. She has been on PPI every since this hospitalization until recently when she discontinued it. The frequency and severity of her symptoms has increased. She will undergo EGD to assess her upper GI tract to rule out inflammation. I will also order blood work with CMP and CBC. I will order RUQ US to assess her biliary structures and ducts. She is agreeable to this plan. -RUQ US -EGD -CMP and CBC Orders: Orders Gallbladder Today R10.13 - Epigastric pain Comprehensive Metabolic Profil Today R10.13 - Epigastric pain CBC W/Diff, Automated Today R10.13 - Epigastric pain Medications: Discontinued ondansetron Discontinued Reason: Pt no longer taking 4 mg PO Q6H PRN 10 tabs 0RF nausea and vomiting (more content not included)...[facility]05-29-2025 Radiology Diagnostic study note [facility] Imaging Services [address] [place], [place] [address] Abdomen/Pelvis WITH Contrast MR#: [id number] Acct: [id number] Name: GLORIA MAYES Rep #: [id number] : 1970 F 55 From: Gt Jensen MD PCP: Dr. Krystal Kelly, DO Status: REG CLI Study:Abdomen/Pelvis WITH Contrast Date of Ex am: 04/02/25 Exam# [id number] Ordering Dr: Carla Borja PROCEDURE: ABDOMEN/PELVIS WITH CONTRAST 04/02/2025 REASON FOR EXAM: LIVER CYSTS TECHNIQUE: Abdomen and pelvis CT with intravenous contrast. Coronal and Sagittal reconstruction series were provided. PATIENT PREPARATION: Per protocol ORAL CONTRAST TYPE: Given. CONTRAST: Isovue-300 VOLUME: 100 mL One or more dose reduction techniques were used (e.g., Automated exposure control, adjustment of the mA and/or kV according to patient size, use of iterative reconstruction technique. RADIATION DOSE SUMMARY: CTDlvol: 12 mGy DLP: 959.84 mGycm COMPARISON: Prior sonogram dated February 25, 2025. FINDINGS: Lung bases: Mild dependent atelectasis Liver: Diffuse fatty infiltration.. There is a 1 cm cyst in the medial aspect of the left lobe of the liver. There is a 2 cm hypodense nodule in the region of the caudate lobe of the liver with peripheral enhancement. There is filling of this hypodense nodule on later images suggestive of hemangioma. This corresponds to the sonographic findings. Gallbladder: Unremarkable Spleen: Normal size. Pancreas: Normal size without evidence of mass surrounding inflammation or ductal dilation. Adrenals: Unremarkable Kidneys: Normal renal sizes. No hydronephrosis. Bladder: Unremarkable Reproductive Organs: Normal uterine size and contour. Ovaries are unremarkable. Bowel: Scattered sigmoid diverticula. Appendix: Unremarkable Lymph nodes: Unremarkable. Vasculature: The abdominal aorta and IVC are normal. Peritoneum / Retroperitoneum: Unremarkable Bones: Unremarkable CT/Abdomen/Pelvis WITH Contrast IMPRESSION: Fatty infiltration of the liver. Small cyst in the left lobe of the liver as well as a hemangioma in the region of the caudate lobe of the liver. OVERALL FINAL ASSESSMENT: . LI-RADS is not meant to be used in patients <18 years or patients with cirrhosisdue to congenital hepatic fibrosis or due to vascular disorders, because these patients have a lower chance of developing HCC. Reading Location: [id number] CC: Dr. Krystal Kelly DO; CAROLINE Miranda ~ Business Services Clerk: Signed [facility]04-21-2025 Radiology Diagnostic study note [facility] Imaging Services [address] [place] [id number] Abdomen Limited MR#: [id number] Acct: [id number] Name: GLORIA MAYES Rep #: [id number] : 1970 F 54 From: Gt Jensen MD PCP: Dr. Krystal Kelly DO Status: REG CLI Study:Abdomen Limited Date of Exam: 02/06 12/01 Exam# [id number] Ordering Dr: Carla Borja PROCEDURE: ABDOMEN LIMITED 02/25/2025 REASON FOR EXAM: EPIGASTRIC PAIN COMPARISON: None FINDINGS: Liver: Diffusely echogenic suggesting fatty infiltration. The liver measures 14.1 cm. There is a 9 mm x 8 mm x 7 mm cyst in the left lobe. There is also evidence of a 3.2 cm x 3.5 cm x 3.3 cm isoechoic nodule in the left lobe of the liver suggestive of a hemangioma. Gallbladder: No stones, sludge, wall thickening or tenderness. Common bile duct: Normal measuring it measures 2.7 mm. . Pancreas: Visualized portions are sonographically unremarkable. Other: Visualized portions of the right kidney are unremarkable. No right upperquadrant ascites. US/Abdomen Limited IMPRESSION: Fatty infiltration of the liver. Subcentimeter cyst is seen in the left lobe. 3.2 cm x 3.5 cm x 3.3 cm isoechoic nodule in the left lobe suggestive of possible hemangioma. Reading Location: [facility] CC: Dr. Krystal Kelly DO; CAROLINE Miranda ~ Business Services Clerk: Signed [facility]04-08-2025 Evaluation note* Diagnosis Onset Date Resolution Status Admit Date Epigastric abdominal pain acute February 12, 2025 3:18pm Abdominal symptoms noneactive February 12, 2025 3:18pm [facility] Work Phone: 1(687) 554-153504-08-2025 Evaluation note* Diagnosis Onset Date Resolution Status Admit Date Epigastric abdominal pain acute February 12, 2025 3:18pm Abdominal symptoms noneactive February 12, 2025 3:18pm Epigastric abdominal pain acute April 24, 2025 11:07am Nausea & vomiting acute April 242024 11:07am [facility] Work Phone: 1(384) 291-314704-01-2025 Nuclear medicine Diagnostic study note [facility] Imaging Services [address] [place] [id number] Gastric Emptying Study MR#: [id number] Acct: [id number] Name: GLORIA MAYES Rep #: [id number] : 1970 F 54 From: Gt Jensen MD PCP: Dr. Krystal Kelly DO Status: REG CLI Study:Gastric Emptying Study Date of Exam: 02/05/25 Exam# [id number] Ordering Dr: Parisa Kelly sa, DO PROCEDURE: GASTRIC EMPTYING STUDY 02/05/2025 REASON FOR EXAM: UNSPECIFIED ABDOMINAL PAIN COMPARISON: None. TECHNIQUE: The patient ingested a standard meal of oatmeal and water with 1.1 mCi of technetium sulfur colloid.,. There was no vomiting postprandially. Anterior and posterior planar images of the upper abdomen were obtained for 1 minute immediately following the meal at 1h, if more than 10% of the activity persisted within the stomach. Regions of interest were drawn, and a geometric mean was used to calculate a [id number]-caxht. RADIOPHARMACEUTICAL: 1.1 mCi of technetium labeled sulfur colloid. FINDINGS: Percent activity remaining in stomach: 1 hour 55% % (normal 37-90%) NM/Gastric Emptying Study IMPRESSION: Normal gastric emptying examination. Reading Location: [id number] CC: Dr. Krystal Kelly, DO ~ Business Services Clerk: Signed [facility]02-13-2024 Miscellaneous Notes* Telephone Encounter - Rita Stone MA - 12/20/2023 2:14 PM EST Received referral documentation from Yara Romano, HEATHER No appt had been scheduled yet. documented in this encounterFisher-Titus Medical Centersult note Author Raymundo Gillespie [facility] Note Date/Time April 24, 2025 12:1 4pm [facility] Medical Records Department [address] [place] [address] Pre-Anesthesia Evaluation 04/24/25 1204 MR#: [id number] Acct: [id number] Name: GLORIA MAYES Rep #:[id number] : 1970 55 From: Raymundo Gillespie MD PCP: Dr. Krystal Kelly DO Status:REG SDC Y Race: C Location: [place] [address] Raymundo Gillespie MD on 04/24/25 at 1214 Addendum Patient states that she has a gut sensitivity to eggs. She is able to eat them cooked in cake. 04/24/25 1214 <Electronically signed by Raymundo bustillos MD> Date _ Raymundo Gillespie MD cc: ~* Signed ASA Classification* ASA Classification ASA Classification: 2 Assessment & Plan Anesthesia* Anesthesia Assessment Anesthesia Assessment: Discussed sedation and/or anesthesia options, risks, benefits, and alternatives with patient/parents/legal guardian/POA. Questions invited. The patient/parents/legal guardian/POA seems to understand and agrees to proceedwith anesthesia plan. Reviewed the physical assessment, medical history, allergy history and patient home medications list prior to surgery/procedure/anesthetic and documented any changes. Performed airway and anesthesia risk assessments. Anesthesia Type Anesthesia Type: MAC History Source History Obtained from:: Patient and Chart Anesthesia Focused Assessment* Temperature: 97.1 F Pulse Rate: 80 Blood Pressure: 109/70 Respiratory Rate: 16 Pulse Ox: 96 Oxygen Delivery Method: Room Air Airway Assessment Mouth opens: >3 cm Mallampati Score: II Teeth Condition: Intact Neck Range of motion (ROM): Full ROM Labs Anesthesia Preop lab: CBC WBC 8.2 K/mm3 (4.4-11.0) 02/12/25 16:02/12/25 RBC 4.36 M/mm3 (4.2-5.4) 02/12/25 16:07 02/12/25 Hgb 13.2 g/dL (12.0-15.0) 02/12/25 16:02/12/25 Hct 40.6 % (37-47) 02/12/25 16:07 02/12/25 Plt Count 404 K/mm3 (150-450) 02/12/25 16:07 02/12/25 CHEMISTRY Potassium 4.3 mmol/L (3.3-5.1) 02/12/25 16:07 02/12/25 Sodium 139 mmol/L (133-145) 02/12/25 16:07 02/12/25 Magnesium 1.8 mg/dL (1.8-2.4) 07/02/15 05:20 07/02/15 Phosphorus 2.7 mg/dL (2.5-4.9) 07/02/15 05:20 07/02/15 BUN 17 mg/dL (4-19) 02/12/25 16:07 02/12/25 Creatinine 0.91 mg/dL (0.70-1.20) 02/12/25 16:07 02/12/25 Glucose 89 mg/dL (70-99) 02/12/25 16:07 02/12/25 TSH 2.84 uIU/mL (0.358-3.74) 11/25/23 12:38 COAG Pre-Assessment Diagnosis/Proposed Procedure Planned Operative Procedure(s): EGD Anesthesia History Anesthesia History - slitter service and setter: Anesthesia History - slitter service and setter Hx Hospitalization No 04/22/25 11:00 Any Problems With Anesthesia No 04/22/25 11:00 Cholinesterase deficiency No 04/22/25 11:00 You/Your Family Experience No 04/22/25 11:00 fever (hyperthermia) with Relationship Recent Exposure to Contagious No 04/24/25 11:24 Disease Does patient have nerve No 04/22/25 11:00 stimulator Patient instructed to have device shut off --Does patient have Pacemaker No 04/24/25 11:24 or ICD? When Was Last Pacemaker Check QUESTION #4 FULL TEXT: You/Your Family Experience fever (hyperthermia) with Anesthesia Last Oral Intake Last Oral intake: Last Oral Intake NPO since 19:00 04/24/25 11:24 Meds taken in AM with sips of Yes 04/24/25 11:24 water? Meds patient instructed to 0615 04/24/25 11:24 take am of surgery protonix, buspar Any additional information?: Yes NPO since: 07:15 (Patient had black coffee up till 7:15 AM.) Meds taken in AM with sips of water?: Yes PONV PONV - slitter service and setter: PONV - slitter service and setter Female Yes 04/22/25 11:00 HX of Motion Sickness Yes 04/22/25 11:00 HX of N/V After Surgery No 04/22/25 11:00 Non-Smoker Yes 04/22/25 11:00 Duration of Surgery greater No 04/22/25 11:00 than 60 minutes Number of Risk Factors 3 04/22/25 11:00 PONV Score Moderate Risk 04/22/25 11:00 Height & Weight Height & Weight: Anesthesia: Height & Weight Height 5 ft 2.99 in 04/24/25 11:24 Weight: 70 kg 04/24/25 11:24 Body Mass Index (BMI) 27.3 04/24/25 11:24 Respiratory Assessment Respiratory Assessment - slitter service and setter: Respiratory Tract Infection Hx - slitter service and setter Hx Respiratory Tract Infection No 04/22/25 11:00 STOP Sleep Apnea STOP Sleep Apnea - slitter service and setter: STOP Sleep Apnea - slitter service and setter Hx Hypertension No 04/22/25 11:00 Hx Sleep Apnea No 04/22/25 11:00 CPAP BIPAP Do you snore loudly (louder No 04/22/25 11:00 than talking or can be heard Do you often feel tired/ Yes 04/22/25 11:00 fatigued/ sleepy during daytime? Has anyone observed you stop No 04/22/25 11:00 breathing during sleep? STOP Results Negative 04/22/25 11:00 QUESTION #5 FULL TEXT : Do you snore loudly (louder than talking or can be heard through closed doors)? Tobacco Use History Tobacco Use History - slitter service and setter: Tobacco Use History - slitter service and setter Tobacco Use Smoking Status Never smoker 04/22/25 11:00 Hx Tobacco Use No 04/22/25 11:00 Years Smoking Packs Smoked per Day Smoking Cessation Date was within the last 15 years Hx Smoking Cessation Date Hx Smoking Cessation Counseling Hematologic Medial History Hematologic Hx - slitter service and setter: Hematologic Medical Hx - [facility] Hx of Blood Transfusion No 04/22/25 11:00 Hx of Transfusion in last 3 No 04/22/25 11:00 Months Date of Last Transfusion (if within last 3 months) Ever experience any problems No 04/22/25 11:00 with transfusion(s)? Specify any problems Hx of Preganancy in last 3 No 04/22/25 11:00 Months Nurse Filling Out Transfusion DSCHRIBER 04/22/25 11:00 & Questions: Date: 04/22/25 04/22/25 11:00 Time: 11:02 04/22/25 11:00 Patient unable to answer at this time (ie. confused, unrespo /Reproduction History /Reproductive History - slitter service and setter: /Reproductive Hx- slitter service and setter Hx Now No 04/22/25 11:00 Gestational Age (in weeks): EDC: Hx Hx Para Hx Section SAB No 04/22/25 11:00 Active Medications Active Medications: Current Medications Generic Name Dose Route Start Last Admin Trade Name Freq PRN Reason Stop Dose Admin Lactated Ringer's 1,000 mls @ 15 mls/hr 04/24/25 11:15 04/24/25 11:31 IV 15 mls/hr .Q48H CARMEN Administration PFSH Medical History Wears glasses Depression Alcohol use Fatty liver Injury of head and neck Loss of consciousness Blackout Non-smoker History of stress test GERD (gastroesophageal reflux disease) Anxiety Home Medications ?Medication ?Instructions ?Recorded ?Last Taken ?Type escitalopram oxalate 20 mg tablet 20 mg PO QHS 0 Unknown History buspirone 5 mg tablet 5 mg PO BID 02/12/25 5 06:15 History muzndnzj-ceq-rwjeh acid 0.4 1 tab PO QDAY 02/12/25 Unk nown History mg-lycopene 300 mcg-lutein 250 mcg tablet (Centrum Silver) pantoprazole 40 mg tablet,delayed 40 mg PO DAILY 04/2204/24/25 06:15 History release vitamin B complex (Vitamins B 1 tab PO QHS 04/22/25 Un known History Complex tablet) Allergy/AdvReac Type Severity Reaction Status Date / Time aspirin Allergy Swelling Verified 04/22/25 10:56 honey Allergy Swelling Verified 04/22/25 10:56 ibuprofen (From Motrin) Allergy Swelling Verified 04/22/25 10:56 strawberry Allergy Swelling Verified 04/22/25 10:56 Surgical History History of esophagogastroduodenoscopy (EGD) Hx of colonoscopy Social History Smoking Status: Never smoker Review of Systems (Anesthesia) ROS Narrative System reviewed and no additional complaints, except as documented. 04/24/25 1211 <Electronically signed by Raymundo bustillos MD> Date _ Raymundo Gillespie MD Cosigner Signature: Date CC: ~ Signed [facility] Work Phone: Consult note Author Robles Nino [facility] Note Date/Time April 24, 2025 12:4 4pm [facility] Medical Records Department [address] [place] [address] Anesthesia Postop Eval I 04/24/25 1243 MR#: [id number] Acct: [id number] Name: GLORIA MAYES Rep #:[id number] : 1970 55 From: Robles Nino PCP: Dr. Krystal Kelly, DO Status:REG SDC Y Race: C Location: [place] [address] Anesthesia: Postop Eval I Current Vital Signs Temperature: 97 F Pulse Rate: 68 Blood Pressure: 79/59 Respiratory Rate: 16 Pulse Ox: 97 Oxygen Delivery Method: Room Air Assessment Airway patent: Yes Spontaneous unlabored respirations: Yes Mental status: Asleep nausea: No Vomiting: No Anesthesia Complication: No Fluid Hydration Crystalloid volume administer (ml): 300 Total IV fluid infused: 300 Progress Note Anesthesia document: Postop Eval 1 completed: Yes 04/24/25 1244 <Electronically signed by Robles Nino > Date _ Robles Lyon Signature: Date CC: ~ Signed [facility] Work Phone: Evaluation noteNo assessment information available [facility] Work Phone: Reason for referral (narrative)No reason for referral information availableWSelect Medical Special[facility] Work Phone: Summary Purpose Family History No Family History Records Found Relationship Condition Age at Onset Recorded Date/T yaw Unknown Family History?No pe rtinent history Unknown July 01, 2015 4:27am Family History?No pe rtinent history Unknown July 01, 2015 4:27am Relationship Condition Age at Onset Recorded Date/T yaw Unknown Family History?No pe rtinent history Unknown July 01, 2015 3:27am Family History?No pe rtinent history Unknown July 01, 2015 3:27am Advance Directives No Advanced Directives Records Found Advance Directive Response Recorded Date/ Time Advance Directives No July 03, 2015 3:53am Living Will No March 13, 2020 12 :47pm Power of Support Services Tech No March 13, 2020 12:47pm Advance Directive Response Recorded Date/ Time Advance Directives No July 03, 2015 3:53am Living Will No May 27, 2023 9:02pm Power of Support Services Tech No May 27 9:02pm Advance Directive Response Recorded Date/ Time Advance Directives No July 03, 2015 2:53am Living Will No May 27, 2023 8:02pm Power of Support Services Tech No May 27 8:02pm Advance Directive Response Recorded Date/ Time Advance Directives No July 03, 2015 3:53am Advance Directive Response Recorded Date/ Time Do you have a Healthcare Power of Support Services Tech? No April 22, 2025 11:00am Advance Directives No July 03, 2015 3:53am Chief Complaint and Reason for Visit Chief Complaint SCREENING Chief Complaint SCREENING ABNORMAL MAMMOGRAM FINDINGS Chief Complaint HEAD INJURY 4 MONTH FOLLOW UP Chief Complaint 4 MONTH FOLLOW UP Chief Complaint Admit Date ABD PAIN February 05, 2025 12:1 3pm Chief Complaint Admit Date ABD PAIN February 05, 2025 12:1 3pm Abdominal complaints February 12, 2025 3:1 8pm Reason for Visit Admit Date Epigastric abdominal pain February 12 3:18pm Abdominal symptoms February 12, 2025 3:18 pm Chief Complaint Admit Date ABD PAIN February 05, 2025 12:1 3pm Abdominal complaints February 12, 2025 3:1 8pm EPIGASTRIC PAIN February 25, 2025 7:1 7am Chief Complaint Admit Date ABD PAIN February 05, 2025 12:1 3pm Abdominal complaints February 12, 2025 3:1 8pm EPIGASTRIC PAIN February 25, 2025 7:1 7am LIVER CYSTS April 02, 2025 5:25p m Reason for Visit Admit Date Epigastric abdominal pain February 12 3:18pm Abdominal symptoms February 12, 2025 3:18 pm Epigastric abdominal pain April 24 11:07am Nausea & vomiting April 24, 2025 11:0 7am Chief Complaint Admit Date ABD PAIN February 05, 2025 12:1 3pm Abdominal complaints February 12, 2025 3:1 8pm EPIGASTRIC PAIN February 25, 2025 7:1 7am LIVER CYSTS April 02, 2025 5:25p m Test Result May 08, 2025 3:24p m Additional Source Comments INFORMATION SOURCE (unrecogn ized section and content) DATE CREATED AUTHOR 04/28/2018 [facility] DATE CREATED AUTHOR AUTHOR'S ORGANIZ ATION 05/02/2018 [facility] DATE CREATED AUTHOR AUTHOR'S ORGANIZ ATION 11/29/2021 [facility] DATE CREATED AUTHOR AUTHOR'S ORGANIZ ATION 10/07/2022 [facility] DATE CREATED AUTHOR AUTHOR'S ORGANIZ ATION 12/22/2023 [facility] DATE CREATED AUTHOR AUTHOR'S ORGANIZ ATION 05/11/2025 [facility] Goals (unrecognized section and content) Goals may be documented in a n alternate sectionGoals may be documented in an alternate sectionGoals may be documented in an alternate sectionGoals may be documented in an alternate sectionGoals may be documented in an alternate sectionGoals may be documented in an alternate sectionGoals may be documented in an alternate sectionGoals may be documented in an alternate sectionGoals may be documented in an alternate section Care Teams (unrecognized sec tion and content) Team Status: Active Member Role Status Dates Dr. Krystal Kelly DO Family Provider Active Dr. Krystal Kelly DO Primary Care Provider Active Team Status: Inactive Member Role Status Dates Dr. Krystal Kelly DO Primary Care Provider Active MASSIMO LONGORIA MD Attending Provider Active CARLYLE KEYS Other Provider Active Team Status: Inactive Member Role Status Dates Dr. Krystal Kelly DO Primary Care Provider Active MASSIMO LONGORIA MD Attending Provider Active Team Status: Inactive Member Role Status Dates Dr. Krystal Kelly DO Primary Care Provider Active MASSIMO LONGORIA MD Attending Provider, Referring Provid er Active Team Status: Inactive Member Role Status Dates Dr. Krystal Kelly DO Primary Care Provider Active Dr. Oneil Narayanan MD Attending Provider, Emergency Pro vider Active Team Status: Active Member Role Status Dates Dr. Krystal Kelly DO Family Provider Active Yara Romano PHARMACY TECHNICIAN ASSISTANT-C Primary Care Provider Active Team Status: Inactive Member Role Status Dates Yara Romano PHARMACY TECHNICIAN ASSISTANT-C Primary Care Provider, Attending P rovider Active Team Status: Inactive Member Role Status Dates Yara Romano PHARMACY TECHNICIAN ASSISTANT-C Primary Care Provider Active Dr. Rainer Pete MD Attending Provider, Referring P rovider Active Team Status: Active Member Role Status Dates Dr. Krystal Kelly DO Primary Care Provider Active Team Status: Inactive Member Role Status Dates Dr. Krystal Kelly DO Primary Care Provider Active Start: February 05, 2025 End: February 05, 2025 Dr. Krystal Kelly DO Attending Provider Active St art: February 05, 2025 End: February 05, 2025 Dr. Krystal Kelly DO Referring Provider Active St art: February 05, 2025 End: February 05, 2025 Team Status: Inactive Member Role Status Dates Dr. Krystal Kelly DO Primary Care Provider Active Start: February 12, 2025 End: February 12, 2025 Dr. Krystal Kelly DO Referring Provider Active St art: February 12, 2025 End: February 12, 2025 CAROLINE Miranda Attending Provider Active Start: February 12, 2025 End: February 12, 2025 Team Status: Inactive Member Role Status Dates Dr. Krystal Kelly DO Primary Care Provider Active Start: February 12, 2025 End: February 12, 2025 CAROLINE Miranda Attending Provider Active Start: February 12, 2025 End: February 12, 2025 CAROLINE Miranda Referring Provider Active Start: February 12, 2025 End: February 12, 2025 Team Status: Inactive Member Role Status Dates Dr. Krystal Kelly DO Primary Care Provider Active Start: February 25, 2025 End: February 25, 2025 CAROLINE Miranda Attending Provider Active Start: February 25, 2025 End: February 25, 2025 CAROLINE Miranda Referring Provider Active Start: February 25, 2025 End: February 25, 2025 Team Status: Inactive Member Role Status Dates Dr. Krystal Kelly DO Primary Care Provider Active Start: April 02, 2025 End: April 02, 2025 CAROLINE Miranda Attending Provider Active Start: April 02, 2025 End: April 02, 2025 CAROLINE Miranda Referring Provider Active Start: April 02, 2025 End: April 02, 2025 Team Status: Inactive Member Role Status Dates Dr. Krystal Kelly DO Primary Care Provider Active Start: April 24, 2025 End: April 24, 2025 Dr. Krystal Kelly DO Referring Provider Active St art: April 24, 2025 End: April 24, 2025 Dr. Matty Rodríguez DO Attending Provider Active Start: April 24, 2025 End: April 24, 2025 Team Status: Active Member Role Status Dates Dr. Krystal Kelly DO Primary Care Provider Active Start: April 24, 2025 Dr. Krystal Kelly DO Referring Provider Active St art: April 24, 2025 Dr. Matty Rodríguez DO Attending Provider Active Start: April 24, 2025 Dr. Matty Rodríguez DO Other Provider Active St art: April 24, 2025 Team Status: Active Member Role/Relationship Status Dates Dr. Krystal Kelly DO Primary Care Provider Active Team Status: Inactive Member Role/Relationship Status Dates Dr. Krystal Kelly DO Primary Care Provider Active Start: February 05, 2025 End: February 05, 2025 Dr. Krystal Kelly DO Attending Provider Active St art: February 05, 2025 End: February 05, 2025 Dr. Krystal Kelly DO Referring Provider Active St art: February 05, 2025 End: February 05, 2025 Team Status: Inactive Member Role/Relationship Status Dates Dr. Krystal Kelly DO Primary Care Provider Active Start: February 12, 2025 End: February 12, 2025 Dr. Krystal Kelly DO Referring Provider Active St art: February 12, 2025 End: February 12, 2025 CAROLINE Miranda Attending Provider Active Start: February 12, 2025 End: February 12, 2025 Team Status: Inactive Member Role/Relationship Status Dates Dr. Krystal Kelly DO Primary Care Provider Active Start: February 12, 2025 End: February 12, 2025 CAROLINE Miranda Attending Provider Active Start: February 12, 2025 End: February 12, 2025 CAROLINE Miranda Referring Provider Active Start: February 12, 2025 End: February 12, 2025 Team Status: Inactive Member Role/Relationship Status Dates Dr. Krystal Kelly DO Primary Care Provider Active Start: February 25, 2025 End: February 25, 2025 CAROLINE Miranda Attending Provider Active Start: February 25, 2025 End: February 25, 2025 CAROLINE Miranda Referring Provider Active Start: February 25, 2025 End: February 25, 2025 Team Status: Inactive Member Role/Relationship Status Dates Dr. Krystal Kelly DO Primary Care Provider Active Start: April 02, 2025 End: April 02, 2025 CAROLINE Miranda Attending Provider Active Start: April 02, 2025 End: April 02, 2025 CAROLINE Miranda Referring Provider Active Start: April 02, 2025 End: April 02, 2025 Team Status: Inactive Member Role/Relationship Status Dates Dr. Krystal Kelly DO Primary Care Provider Active Start: April 24, 2025 End: April 24, 2025 Dr. Krystal Kelly DO Referring Provider Active St art: April 24, 2025 End: April 24, 2025 Dr. Matty Rodríguez DO Attending Provider Active Start: April 24, 2025 End: April 24, 2025 Team Status: Active Member Role/Relationship Status Dates Dr. Krystal Kelly DO Primary Care Provider Active Start: April 24, 2025 Dr. Krystal Kelly DO Referring Provider Active St art: April 24, 2025 Dr. Matty Rodríguez DO Attending Provider Active Start: April 24, 2025 Dr. Matty Rodríguez DO Other Provider Active St art: April 24, 2025 Team Status: Inactive Member Role/Relationship Status Dates Dr. Krystal Kelly DO Primary Care Provider Active Start: May 08, 2025 End: May 08, 2025 Dr. Krystal Kelly DO Referring Provider Active St art: May 08, 2025 End: May 08, 2025 CAROLINE Miranda Attending Provider Active Start: May 08, 2025 End: May 08, 2025 Source Comments (unrecognize d section and content) In the event this informatio n is protected by the Federal Confidentiality of Alcohol and Drug Abuse Patient Records regulations: The Federal rules restrict any use of the information to criminally investigate or prosecute any alcohol or drug abuse patient.[facility] Reason for Visit (unrecogniz ed section and content) Reason Comments Referral documentation Yara Romano CNP FOR RECORDS PERTAINING TO PATIENTS WHO ARE [...] BE BASED ON THE PRIMARY CLINICAL RECORDS. [facility] [employer] [facility]. provides no warranty or guarantee of the accuracy or completeness of information in this document.
--- OUTSIDE RECORDS SUMMARY | 2025-08-23 16:23 | XMS RPT_ITS | CCD ---
Author Organization [facility] Clini[employer] Care Team Providers Care Subsurface Augmentee Elint Operator Name Role Phone Marco Osorio Unavailable Unavailable [...] Provider Dr. Krystal Kelly DO Attending Provider [phone] Dr. Krystal Kelly DO Referring Provider Carla Roa Attending Provider [phone] Carla Roa Referring Provider Dr. Matty Rodríguez DO Attending Provider Dr. Matty Rodríguez DO Other Provider [phone] Malys, Krystal Primary Care Unavailable Malys, Krystal [...] sources) aspirin; Translations: [aspirin] Drug Allergy 03-17-2020 [facility] Repository (13 sources) ibuprofen; Translations: [ibuprofen] Drug Allergy 03-17-2020 [facility] Repository (1 source) loratadine; Translations: [Claritin] Drug Allergy [facility] Repository (1 source) venlafaxine; Translations: [Effexor] [facility] (11 sources) Honey Allergy to substance 03-17-2020 [facility] (11 sources) strawberry allergenic extract Drug Allergy 03-17-2020 [facility] (1 source) Honey Drug allergy (disorder) 04-22-2025 [facility] Repository (1 source) strawberry allergenic extract Drug Allergy 04-22-2025 [facility] Repository Medications Current Medications Medication Drug [...] 01, 2015 12:00am July 03, 2015 2:21pm Xrmuroyg-Byt-Ld-Lycopen-Lute in (Centrum Silver) 0.4 mg-300 mcg- 250 mcg tablet (5 sources) Start: 02-12-2025 take 1 tablet by mouth once daily Xoocytpg-Urp-Xl-Lycopen-Lutein (Centrum Silver) 0.4 mg-300 mcg- 250 mcg [...] Visit Repor ton 05-08-2025 Gastroenterology Visit Report [facility] Gastroenterology [address] [facility] [address] OFFICE VISIT Date of Service: 05/08/25 MR#: [id number] Acct: [id number] Name: GLORIA MAYES Rep #: [id number] : 1970 Provider: CAROLINE Miranda Age/Sex: 55/F Location: [facility] Status: Signed Intake Vital [...] pain after eating. Pt continues pantoprazole daily. [facility] Medical History Wears glasses Depression Alcohol use [...] presents to the office today for f/u. [facility] admission 2014 with acute pancreatitis and duodenitis. [...] Nutritional Appearance: average body habitus Orientation: alert [facility] Head: normal to inspection Eyes General: appearance normal, both eyes and all related structures Neck Neck: normal visual inspection Chest Chest palpation inspection: normal inspection of the chest Resp Effort Inspection: normal respiratory effort Cardio Rate: regular rate Rhythm: regular rhythm GI Inspection: normal to inspection Palpation: soft, no hepatos (more content not included)... Normal [facility] EGD Reporton 04-24-2025 EGD Report [facility] Medical Records Department [address] [place] [address] EGD Report MR#: [id number] Acct: [id number] Name: GLORIA MAYES Rep #: [id number] : 1970 55 From: Matty Friend DO PCP: Dr. Krystal Kelly DO Status:REG [facility] Patient Name: Gloria Mayes Procedure Date: 04/24/2025 [...] the largest polyp removed entirely and obtain delivery representative biopsies from the remaining polyps. This approach helps determine the nature of the polyps (e.g., hyperplastic, adenomatous) and assess the risk of dysplasia or cancer. Further management, including surveillance or additional interventions, will depend on the polyp type and pathology results. Procedure Code(s): --- Professional --- 93721, Esophagogastroduodenoscop y, flexible, transoral; with removal of tumor(s), polyp(s), or other lesion(s) by snare technique 12996, 59,51, Esophagogastroduodenoscop y, flexible, transoral; with biopsy, single or multiple CPT copyright 2021 [employer]. All rights reserved. The codes documented in this report are preliminary and upon escort service attendant review may be revised to meet current compliance requirements. Matty Rodríguez DO 04/24/2025 12:40:22 PM This report has been signed electronically. Number of Addenda: 0 Note Initiated On: 04/24/2025 12:14 PM 04/24/25 1240 Date (more content not included)... Normal [facility] MR/POSTOP.Gaurav 04-24-2025 MR/POSTOP.[facility] Medical Records Department [address] [facility] [place] [address] Anesthesia Postop Eval I 04/24/25 1243 MR#: [id number] Acct: [id number] Name: GLORIA MAYES Rep #: [id number] : 1970 55 From: Robles Nino PCP: Dr. Krystal Kelly, DO Status:REG [facility] Y Race: C Location: [place] [address] Anesthesia: Postop Eval I Current Vital Signs [...] Robles Lyon Signature: Date CC: Signed Normal [facility] MR/IZYTRAKO2xh 04-24-2025 [facility] Medical Records Department [address] [place] [address] Anesthesia Postop Eval II 04/24/25 1616 MR#: [id number] Acct: [id number] Name: GLORIA MAYES Rep #: [id number] : 1970 55 From: Lena Alcantar CRNA PCP: Dr. Krystal Kelly, DO Status:DEP [facility] Y Race: C Location: EN Anesthesia Postop [...] Alcantar CRNA Cosigner Signature: Date CC: Signed [facility] ,Urineon 04-24-2025 Beta HCG ( test) Ql (U) [facility] Comment on above: Result Comment: Canc elled via OM: Pt refuses the test Performed By: #### L 400.7600 #### [facility] Laboratory [address] [place], [address] INTERNAL QC OK? [facility] Comment on above: Result Comment: Canc elled via OM: Pt refuses the test Performed By: #### L 400.7600 #### [facility] [address], [address] RECORD KIT LOT# [facility] Comment on above: Result Comment: Canc elled via OM: Pt refuses the test Performed By: #### L 400.7600 #### [facility] [address] [place], [address] Surgery Specimen Level Jeronimo 04-24-2025 Surgery Specimen Level IV Patient Age/Sex Location Account Attending Physician GLORIA MAYES 55/F EN [id number] Matty Rodríguez DO Specimen: [id number] Received: 04/24/25 Status: DONTA Hernández Num: [id number] Spec Type: EGD BIOPSY Codrelia Dr: DO JOSE M Turk OPERATION: EGD [...] totally submitted in one cassette. Lakshmi 04/24/2025 [facility]:[id number] Patient Age/Sex Location Account Attending Physician GLORIA MAYES 55/F EN [id number] Matty Rodríguez DO Signed (signature on file) Dr. Gertrude Dahl MD 04/30/25 0906 Normal [facility] Comment on above: Performed By: #### P SUIV #### [facility] Laboratory [address] [facility], [address] Abdomen/Pelvis WITH Contrast on 04-02-2025 Abdomen/Pelvis WITH Contrast [facility] Imaging Services [address] [place], [place] [address] Abdomen/Pelvis WITH Contrast MR#: [id number] Acct: [id number] Name: GLORIA MAYES Rep #: [id number] : 1970 F 55 From: Maciej crocker MD PCP: Dr. Krystal Kelly, Status: REG CLI Study: Abdomen/Pelvis WITH Contrast Date of Exam: Exam# [id number] Ordering Dr: Carla Borja PROCEDURE: ABDOMEN/PELVIS WITH [...] lower chance of developing HCC. Reading Location: [id number] CC: Dr. Krystal Kelly DO; CAROLINE Miranda Realtime Reporter: Signed Normal [facility] Abdomen Limitedon 02-25-2025 Abdomen Limited [facility] Imaging Services [address] [place] [address] Abdomen Limited MR#: [id number] Acct: [id number] Name: GLORIA MAYES Rep #: [id number] : 1970 F 54 From: Maciej crocker MD PCP: Dr. Krystal Kelly DO Status: REG CLI Study: Abdomen Limited Date of Exam: 02/25/25 Exam# [id number] Ordering Dr: Carla Borja PROCEDURE: ABDOMEN LIMITED [...] lobe suggestive of possible hemangioma. Reading Location: [place] [address] CC: Dr. Krystal Kelly DO; CAROLINE Miranda Realtime Reporter: Signed Normal [facility] Absolute lymphocyte countOrd ered By: Carla Borja on 02-12-2025 Lymphocytes Auto (Unsp spec) [#/Vol] 3.01 10*3/uL 0.83-4.51 [facility] Absolute neutrophil countOrd ered By: Carla Borja on 02-12-2025 Neutrophils (Bld) [#/Vol] 4.3 10*3/uL 2.0-7.7 [facility] Anion gap in Serum or Plasma Ordered By: Carla Borja on 02-12-2025 Anion gap [Moles/Vol] 13 mmol/L 5-15 [facility] Automated lymphocyte count a s percentage of total leukocytesOrdered By: Carla Borja on 02-12-2025 Lymphocytes/100 WBC Auto (Unsp spec) 36.6 % 19-41 [facility] BUN/creatinine ratioOrdered By: Carla Borja on 02-12-2025 Urea nitrogen/Creatinine [Mass ratio] 18.3 mg/mg 10-20 [facility] Basophil percentageOrdered B y: Carla Borja on 02-12-2025 Basophils/100 WBC (Bld) 0.5 % 0-1 [facility] Bilirubin, totalOrdered By: Carla Borja on 02-12-2025 Bilirubin [Mass/Vol] 0.30 mg/dL 0.00-1.30 [facility] CBC W/Diff, Automatedon Absolute Lymph 3.01 X10 3/uL Normal 0.83-4.51 [facility] Comment on above: Performed By: #### L 100.0100, L500.4050 #### [facility] Laboratory [address] [place], [address] Absolute Neut 4.3 X10 3/uL Normal 2.0-7.7 [facility] Comment on above: Performed By: #### L 100.0100, L500.4050 #### [facility] [address] [place], [address] Basophils/100 WBC (Bld) 0.5 % Normal 0-1 [facility] Comment on above: Performed By: #### L 100.0100, L500.4050 #### [facility] [address] [place], [address] Eosinophils/100 WBC (Bld) 2.9 % Normal 0-5 [facility] Comment on above: Performed By: #### L 100.0100, L500.4050 #### [facility] [address] [place], [address] Erythrocyte distribution width (RBC) [Ratio] 12.2 % Normal 11.6-14.6 [facility] Comment on above: Performed By: #### L 100.0100, L500.4050 #### [facility] [address] [place], [address] Hematocrit (Bld) [Volume fraction] 40.6 % Normal 37-47 [facility] Comment on above: Performed By: #### L 100.0100, L500.4050 #### [facility] [address] [place], [address] Hemoglobin (Bld) [Mass/Vol] 13.2 g/dL Normal 12.0-15.0 [facility] Comment on above: Performed By: #### L 100.0100, L500.4050 #### [facility] [address] [place], [address] IG% 0.200 Normal 0.0-0.9 [facility] Comment on above: Result Comment: IG% - Immature Granulocytes (promyelocytes, myelocytes and metamyelocytes) > 1% indicates that a LEFT SHIFT is Present. Performed By: #### L 100.0100, L500.4050 #### [facility] [address] [place], [address] Lymphocytes/100 WBC (Bld) 36.6 % Normal 19-41 [facility] Comment on above: Performed By: #### L 100.0100, L500.4050 #### [facility] [address] [place], [address] MCH (RBC) [Entitic mass] 30.3 pg Normal 27.0-32.0 [facility] Comment on above: Performed By: #### L 100.0100, L500.4050 #### [facility] [address] [place], [address] MCHC (RBC) [Mass/Vol] 32.5 g/dL Normal 32-36 [facility] Comment on above: Performed By: #### L 100.0100, L500.4050 #### [facility] [address] [place], [address] MCV (RBC) [Entitic vol] 93.1 fL Normal 81-99 [facility] Comment on above: Performed By: #### L 100.0100, L500.4050 #### [facility] [address] [place], [address] Monocytes/100 WBC (Bld) 7.0 % Normal 0-10 [facility] Comment on above: Performed By: #### L 100.0100, L500.4050 #### [facility] [address] [place], [address] Neutrophils/100 WBC (Bld) 52.8 % Normal 47-70 [facility] Comment on above: Performed By: #### L 100.0100, L500.4050 #### [facility] [address] [place], [address] Nucleated RBC (Bld) [#/Vol] 0 10*3/uL Normal 0-5 [facility] Comment on above: Performed By: #### L 100.0100, L500.4050 #### [facility] [address] [place], [address] Platelet mean volume (Bld) [Entitic vol] 10.0 fL Normal 6.2-12.0 [facility] Comment on above: Performed By: #### L 100.0100, L500.4050 #### [facility] [address] [place], [address] Platelets (Bld) [#/Vol] 404 10*3/uL Normal 150-450 [facility] Comment on above: Performed By: #### L 100.0100, L500.4050 #### [facility] [address] [place], [address] RBC (Bld) [#/Vol] 4.36 10*6/uL Normal 4.2-5.4 [facility] Comment on above: Performed By: #### L 100.0100, L500.4050 #### [facility] [address] [place], [address] RDW SD 42.3 fl Normal 35.1-43.9 [facility] Comment on above: Performed By: #### L 100.0100, L500.4050 #### [facility] [address] [place], [address] WBC (Bld) [#/Vol] 8.2 10*3/uL Normal 4.4-11.0 [facility] Comment on above: Performed By: #### L 100.0100, L500.4050 #### [facility] [address] [place], [address] Carbon dioxide, total [Moles /volume] in Central venous bloodOrdered By: Carla Borja on 02-12-2025 CO2 [Moles/Vol] 25.8 mmol/L 21.0-32.0 [facility] Chloride assayOrdered By: Parisa Borja on 02-12-2025 Chloride [Moles/Vol] 100 mmol/L 98-108 [facility] Comprehensive Metabolic Prof ilon 02-12-2025 Albumin [Mass/Vol] 4.3 g/dL Normal 3.5-5.0 [facility] Comment on above: Performed By: #### L 100.0100, L500.4050 #### [facility] [address] [place], [address] Albumin/Globulin [Mass ratio] 1.2 {ratio} Normal 0.9-2.4 [facility] Comment on above: Performed By: #### L 100.0100, L500.4050 #### [facility] [address] [place], [address] ALK PHOS 154 U/L High 35-104 [facility] Comment on above: Performed By: #### L 100.0100, L500.4050 #### [facility] [address] [place], [address] ALT [Catalytic activity/Vol] 45 U/L High <=34 [facility] Comment on above: Performed By: #### L 100.0100, L500.4050 #### [facility] [address] [place], [address] AST [Catalytic activity/Vol] 36 U/L High <=31 [facility] Comment on above: Performed By: #### L 100.0100, L500.4050 #### [facility] [address] [place], [address] Bilirubin [Mass/Vol] 0.30 mg/dL Normal 0.00-1.30 [facility] Comment on above: Performed By: #### L 100.0100, L500.4050 #### [facility] [address] [place], [address] BUN/CRE 18.3 RATIO Normal 10-20 [facility] Comment on above: Performed By: #### L 100.0100, L500.4050 #### [facility] [address] [place], [address] Calcium [Mass/Vol] 9.8 mg/dL Normal 7.6-11.0 [facility] Comment on above: Performed By: #### L 100.0100, L500.4050 #### [facility] [address] [place], [address] Chloride [Moles/Vol] 100 mmol/L Normal 98-108 [facility] Comment on above: Performed By: #### L 100.0100, L500.4050 #### [facility] [address] [place], [address] CO2 [Moles/Vol] 25.8 mmol/L Normal 21.0-32.0 [facility] Comment on above: Performed By: #### L 100.0100, L500.4050 #### [facility] [address] [place], [address] Creatinine [Mass/Vol] 0.91 mg/dL Normal 0.70-1.20 [facility] Comment on above: Performed By: #### L 100.0100, L500.4050 #### [facility] [address] [place], [address] GAP 13 Normal 5-15 [facility] Comment on above: Performed By: #### L 100.0100, L500.4050 #### [facility] [address] [place], [address] GFR/1.73 sq M.predicted among non-blacks MDRD (S/P/Bld) [Vol rate/Area] 74 mL/min/{1.73_m2} Normal >60 [facility] Comment on above: Result Comment: mL/m in/1.73m2 CKD-EPI Creatinine Equation (2020) Performed By: #### L 100.0100, L500.4050 #### [facility] [address] [place], [address] Globulin (S) [Mass/Vol] 3.5 g/dL Normal 2.2-4.2 [facility] Comment on above: Performed By: #### L 100.0100, L500.4050 #### [facility] [address] [place], [address] Glucose [Mass/Vol] 89 mg/dL Normal 70-99 [facility] Comment on above: Performed By: #### L 100.0100, L500.4050 #### [facility] [address] [place], [address] Potassium [Moles/Vol] 4.3 mmol/L Normal 3.3-5.1 [facility] Comment on above: Performed By: #### L 100.0100, L500.4050 #### [facility] [address] [place], [address] Sodium [Moles/Vol] 139 mmol/L Normal 133-145 [facility] Comment on above: Performed By: #### L 100.0100, L500.4050 #### [facility] [address] [place], [address] T PROT 7.8 g/dL Normal 5.9-8.4 [facility] Comment on above: Performed By: #### L 100.0100, L500.4050 #### [facility] [address] [place], [address] Urea nitrogen [Mass/Vol] 17 mg/dL Normal 4-19 [facility] Comment on above: Performed By: #### L 100.0100, L500.4050 #### [facility] [address] [place], [address] Eosinophil percentageOrdered By: Carla Borja on 02-12-2025 Eosinophils/100 WBC (Bld) 2.9 % 0-5 [facility] Erythrocyte distribution wid th (RBC) [Ratio]Ordered By: Carla Borja on 02-12-2025 Erythrocyte distribution width (RBC) [Entitic vol] 42.3 fL 35.1-43.9 [facility] Erythrocyte distribution wid th ratioOrdered By: Carlaadriana Borja on 02-12-2025 Erythrocyte distribution width (RBC) [Ratio] 12.2 % 11.6-14.6 [facility] Erythrocyte distribution wid th standard deviationOrdered By: Carlaadriana Borja on 02-12-2025 Erythrocyte distribution width (RBC) [Ratio] 42.3 fl 35.1-43.9 [facility] GFR/1.73 sq M.predicted cortney g non-blacks MDRD (S/P/Bld) [Vol rate/Area]Ordered By: Carla Borja on 02-12-2025 Estimated GFR (MDRD) Non-Af Amer 74 >60 [facility] Comment on above: mL/min/1.73m2 CKD-EP I Creatinine Equation (2020) Gastroenterology Visit Repor ton 02-12-2025 Gastroenterology Visit Report [facility] Gastroenterology [address] [place] [address] OFFICE VISIT Date of Service: 02/12/25 MR#: [id number] Acct: [id number] Name: GLORIA MAYES Rep #: [id number] : 1970 Provider: CAROLINE Miranda Age/Sex: 54/F Location: [facility] Status: Signed Intake Vital Signs 05/27/23 20:58 [...] 0 02/12/25 History billion cell capsule (Probiotic) ltybktpe-dxd-nehrm acid 0.4 1 tab PO QDAY 02/12/25 02/12/25 Hi story mg-lycopene 300 mcg-lutein 250 mcg tablet (Centrum Silver) Patient : No Have you fallen in the past year?: No Nurse's Note: OV 02.12.25 Pt here to establish care with [facility]. Pt reports abdominal pain and heartburn. Pt takes famotidine daily. Pt reports prior hx of EGD and colonoscopy. Pt still has gallbladder. [facility] Medical History Anxiety GERD (gastroesophageal reflux disease) Social History Smoking Status: Never smoker HPI HPI Chief Complaint: epigastric pain Details: GLORIA MAYES, is a 54 F who presents to the office today for establishment with [facility]. [facility] admission 2014 with acute pancreatitis and duodenitis. [...] Appearance: average body habitus and well nourished [facility] Head: normal to inspection Ears: [...] MDRD (S/P/Bld) [Vol rate/Area] 74 mL/min/{1.73_m2} >60 [facility] Comment on above: mL/min/1.73m2 CKD-EP I Creatinine Equation (2020) Hematocrit Auto (Bld) [Volum e fraction]Ordered By: Carla Borja on 02-12-2025 Hematocrit (Bld) [Volume fraction] 40.6 % 37-47 [facility] Hemoglobin measurementOrdere d By: Carla Borja on 02-12-2025 Hemoglobin (Bld) [Mass/Vol] 13.2 g/dL 12.0-15.0 [facility] Immature granulocytes/100 WB C Auto (Bld)Ordered By: Carla Borja on 02-12-2025 Immature granulocytes/100 WBC (Bld) 0.200 % 0.0-0.9 [facility] Comment on above: IG% - Immature Granu locytes (promyelocytes, myelocytes and metamyelocytes) > 1% indicates that a LEFT SHIFT is Present. Laboratory - Chemistry and C hemistry - challengeOrdered By: Carla Borja on 02-12-2025 AST [Catalytic activity/Vol] 36 U/L High <32 [facility] Lymphocytes Auto (Unsp spec) [#/Vol]Ordered By: Carla Borja on 02-12-2025 Lymphocytes (Bld) [#/Vol] 3.01 10*3/uL 0.83-4.5 1 [facility] Lymphocytes/100 WBC Auto (Un sp spec)Ordered By: Carla Borja on 02-12-2025 Lymphocytes/100 WBC (Bld) 36.6 % 19-41 [facility] MCV (mean corpuscular volume ) determinationOrdered By: Carla Borja on 02-12-2025 MCV (RBC) [Entitic vol] 93.1 fL 81-99 [facility] Mean corpuscular hemoglobin (MCH) determinationOrdered By: Carla Borja on 02-12-2025 MCH (RBC) [Entitic mass] 30.3 pg 27.0-32.0 [facility] Mean corpuscular hemoglobin concentration (MCHC) determinationOrdered By: Carla Borja on 02-12-2025 MCHC (RBC) [Mass/Vol] 32.5 g/dL 32-36 [facility] Mean platelet volume determi nationOrdered By: Carla Borja on 02-12-2025 Platelet mean volume (Bld) [Entitic vol] 10.0 fL 6.2-12.0 [facility] Monocyte percentageOrdered B y: Carla Borja on 02-12-2025 Monocytes/100 WBC (Bld) 7.0 % 0-10 [facility] Neutrophil percentageOrdered By: Carla Borja on 02-12-2025 Neutrophils/100 WBC (Bld) 52.8 % 47-70 [facility] Nucleated red blood cell per centageOrdered By: Carla Borja on 02-12-2025 Nucleated RBC/100 WBC (Bld) [Ratio] 0 % 0-5 [facility] Platelet countOrdered By: Parisa Borja on 02-12-2025 Platelets (Bld) [#/Vol] 404 10*3/uL 150-450 [facility] Potassium (Unsp spec) [Mass/ Vol]Ordered By: Carla Borja on 02-12-2025 Potassium [Moles/Vol] 4.3 mmol/L 3.3-5.1 [facility] Potassium measurement (mass/ volume)Ordered By: Carla Borja on 02-12-2025 Potassium (Unsp spec) [Mass/Vol] 4.3 mmol/L 3.3-5.1 [facility] RBC Auto (Bld) [#/Vol]Ordere d By: Carla Borja on 02-12-2025 RBC (Bld) [#/Vol] 4.36 10*6/uL 4.2-5.4 [facility] Serum creatinine measurement (mass/volume)Ordered By: Carla Borja on 02-12-2025 Creatinine [Mass/Vol] 0.91 mg/dL 0.70-1.20 [facility] Serum globulin measurementOr dered By: Carla Borja on 02-12-2025 Globulin (S) [Mass/Vol] 3.5 g/dL 2.2-4.2 [facility] Serum glucose measurement (m ass/volume)Ordered By: Carla Borja on 02-12-2025 Glucose [Mass/Vol] 89 mg/dL 70-99 [facility] Serum or plasma alanine falcon otransferase (ALT) measurementOrdered By: Carla Borja on 02-12-2025 ALT [Catalytic activity/Vol] 45 U/L High <35 [facility] Serum or plasma albumin peggy urement (mass/volume)Ordered By: Carla Borja on 02-12-2025 Albumin [Mass/Vol] 4.3 g/dL 3.5-5.0 [facility] Serum or plasma albumin/glob ulin mass ratioOrdered By: Carla Borja on 02-12-2025 Albumin/Globulin [Mass ratio] 1.2 {ratio} 0.9-2.4 [facility] Serum or plasma alkaline ania sphatase measurementOrdered By: Carla Borja on 02-12-2025 ALP [Catalytic activity/Vol] 154 U/L High 35-104 [facility] Serum or plasma calcium peggy urement (mass/volume)Ordered By: Carla Borja on 02-12-2025 Calcium [Mass/Vol] 9.8 mg/dL 7.6-11.0 [facility] Serum or plasma urea nitroge n measurement (mass/volume)Ordered By: Carla Borja on 02-12-2025 Urea nitrogen [Mass/Vol] 17 mg/dL 4-19 [facility] Sodium levelOrdered By: Jens Borja on 02-12-2025 Sodium [Moles/Vol] 139 mmol/L 133-145 [facility] Total proteinOrdered By: Rica Borja on 02-12-2025 Protein [Mass/Vol] 7.8 g/dL 5.9-8.4 [facility] White blood cell (WBC) count Ordered By: Carla Borja on 02-12-2025 WBC (Bld) [#/Vol] 8.2 10*3/uL 4.4-11.0 [facility] Gastric Emptying Studyon Gastric Emptying Study [facility] Imaging Services [address] [place], [place] [id number] Gastric Emptying Study MR#: [id number] Acct: [id number] Name: GLORIA MAYES Rep #: [id number] : 1970 F 54 From: Maciej crokcer MD PCP: Dr. Krystal Kelly DO Status: REG CLI Study: Gastric Emptying Study Date of Exam: 02/05/25 Exam# [id number] Ordering Dr: Krystal Kelly DO PROCEDURE: GASTRIC [...] geometric mean was used to calculate a iblx-zpofumsu-eyqoh. RADIOPHARMACEUTICAL: 1.1 mCi of technetium labeled sulfur colloid. FINDINGS: Percent activity remaining in stomach: 1 hour 55% % (normal 37-90%) NM/Gastric Emptying Study IMPRESSION: Normal gastric emptying examination. Reading Location: [facility] CC: Dr. Krystal Kelly DO Realtime Reporter: Signed Normal [facility] Pelvic w/ Transvaginalon Pelvic w/ Transvaginal [facility] Imaging Services [address] [place], [place] [address] Pelvic w/ Transvaginal MR#: [id number] Acct: [id number] Name: GLORIA MAYES Rep #: [id number] : 1970 F 54 From: You Kulkarni MD PCP: Dr. Krystal Kelly DO Status: REG CLI Study: Pelvic w/ Transvaginal Date of Exam: 08/09/24 Exam# [id number] Ordering Dr: MASSIMO LONGORIA MD [id number] STUDY: ULTRASOUND OF THE FEMALE PELVIS - [...] Dr. Krystal Kelly DO; MASSIMO LONGORIA MD Realtime Reporter: Signed Normal [facility] CNPNon 12-20-2023 CNPN Telephone (ENDMED) ----- GLORIA MAYES ([id number]) 1970 F Date Time Provider Department 12/20/23 [...] Date: 12/20/2023 (None) Encounter Status:Closed by RITA STONE MA on 12/20/23 [facility] Absolute lymphocyte countOrd ered By: Rainer Pete on 11-25-2023 Lymphocytes Auto (Unsp spec) [#/Vol] 2.86 10*3/uL 0.83-4.51 [facility] Automated lymphocyte count a s percentage of total leukocytesOrdered By: Rainer Pete on 11-25-2023 Lymphocytes/100 WBC Auto (Unsp spec) 36.2 % 19-41 [facility] Basophil percentageOrdered B y: Rainer Pete on 11-25-2023 Basophil percentage < 10.0 IU/mL <15 [facility] Basophils/100 WBC (Bld) 0.8 % 0-1 [facility] Bilirubin [Mass/Vol] 0.20 mg/dL 0.20-1.00 [facility] Comment on above: For patients on eltr ombopag therapy, use of Dimension [place] TBIL is not recommended. Eosinophils/100 WBC (Bld) 2.2 % 0-5 [facility] Glucose [Mass/Vol] 91 mg/dL 74-106 [facility] Hemoglobin (Bld) [Mass/Vol] 12.7 g/dL 12.0-15.0 [facility] Monocytes/100 WBC (Bld) 5.4 % 0-10 [facility] Neutrophils (Bld) [#/Vol] 4.4 10*3/uL 2.0-7.7 [facility] Neutrophils/100 WBC (Bld) 55.1 % 47-70 [facility] Protein [Mass/Vol] 7.5 g/dL 6.4-8.2 [facility] WBC (Bld) [#/Vol] 7.9 10*3/uL 4.4-11.0 [facility] Determination of erythrocyte mean corpuscular volume (MCV)Ordered By: Rainer Pete on 11-25-2023 MCV (RBC) [Entitic vol] 94.6 fL 81-99 [facility] Direct bilirubinOrdered By: Rainergerber Morrell on 11-25-2023 Bilirubin.direct [Mass/Vol] 0.10 mg/dL 0.00-0.30 [facility] Erythrocyte distribution wid th ratioOrdered By: [facility] on 11-25-2023 Erythrocyte distribution width (RBC) [Ratio] 12.6 % 11.6-14.6 [facility] Erythrocyte distribution wid th standard deviationOrdered By: [facility] on 11-25-2023 Erythrocyte distribution width (RBC) [Entitic vol] 43.7 fL 35.1-43.9 [facility] Erythrocyte sedimentation ra teOrdered By: [facility] on 11-25-2023 ESR (Bld) [Velocity] 14 mm/h 0-30 [facility] Hematocrit Auto (Bld) [Volum e fraction]Ordered By: [facility] Porsche on 11-25-2023 Hematocrit (Bld) [Volume fraction] 38.9 % 37-47 [facility] Immature granulocytes/100 WB C Auto (Bld)Ordered By: Rainergerber Pete on 11-25-2023 Immature granulocytes/100 WBC (Bld) 0.300 % 0.0-0.9 [facility] Comment on above: IG% - Immature Granu locytes (promyelocytes, myelocytes and metamyelocytes) > 1% indicates that a LEFT SHIFT is Present. Laboratory - Chemistry and C hemistry - challengeOrdered By: Rainergerber Pete on 11-25-2023 ALP [Catalytic activity/Vol] 123 U/L 45-117 [facility] ALT [Catalytic activity/Vol] 10 U/L 13-56 [facility] Globulin (S) [Mass/Vol] 4.3 g/dL 2.2-4.2 [facility] Laboratory - Hematology and Cell countsOrdered By: Rainer Pete on 11-25-2023 MCH (RBC) [Entitic mass] 30.9 pg 27.0-32.0 [facility] MCHC (RBC) [Mass/Vol] 32.6 g/dL 32-36 [facility] Nucleated RBC/100 WBC (Bld) [Ratio] 0 % 0-5 [facility] Platelets (Bld) [#/Vol] 401 10*3/uL 150-450 [facility] Mitotic spindle apparatus Ab [Titer] in Serum or PlasmaOrdered By: Rainergerber Pete on 11-25-2023 Mitotic spindle apparatus Ab [Titer] TNP [facility] Comment on above: Test not performed No Panel InformationOrdered By: Rainer Pete on 11-25-2023 Anti-Nuclear Antibody Comment 2 Comment . [facility] Comment on above: Pattern Potential Di sease Association Homogeneous Systemic Lupus Erythematosus, Drug Induced Systemic Lupus Erythematosus, Chronic Autoimmune hepatitis, Juvenile Idiopathic Arthritis Speckled Sjogren Syndrome, Systemic Lupus Erythematosus, Subacute Cutaneous Lupus, Lupus, Congenital Heart Block, Mixed Connective Tissue Disease, Scleroderma-diffuse, Scleroderma-Autoimmune Myositis Overlap Syndrome, Systemic Lupus Ggrrwvsywpkjz-Klirivdqiyy-Qrnslrgyne Myositis Overlap Syndrome, Systemic Autoimmune Rheumatic Disease, [...] Cytopenias, Linear Scleroderma, Antiphospholipid Syndrome Performed at: [address] [id number] Director: Alberto Eller PhD, Phone: [phone] Estimated GFR (MDRD) Amer 77 mL/min >60 [facility] Comment on above: GFR Calc Estimated GFR (MDRD) Non-Af Amer 63 mL/min >60 [facility] Comment on above: Non- GFR Calc Tryptase 5.7 ug/L 2.2-13.2 [facility] Vitamin D 25-Hydroxy 28.9 ng/mL [facility] Comment on above: Vitamin D 25(OH) Sta tus Range Deficiency <20 ng/mL (50nmol/L) Insufficiency 20 - 30 ng/mL (50 - 75 nmol/L) Sufficiency 30 - 100 ng/mL (75 - 250 nmol/L) Toxicity >100 ng/mL (>250 nmol/L) Platelet mean volume Jac-Ec ker (Bld) [Entitic vol]Ordered By: Rainer Pete on 11-25-2023 Platelet mean volume (Bld) [Entitic vol] 9.8 fL 6.2-12.0 [facility] RBC Auto (Bld) [#/Vol]Ordere d By: Rainer Pete on 11-25-2023 RBC (Bld) [#/Vol] 4.11 10*6/uL 4.2-5.4 [facility] Serum antinuclear antibody ( TC) detection with nuclear membrane pores pattern by immunofluorescenceOrdered By: Rainer Pete on 11-25-2023 Nuclear membrane pores nuclear Ab pattern IF Ql (S) [facility] Comment on above: Test not performed Serum centrosomal pattern an tinuclear antibody (TC) detection by immunofluorescenceOrdered By: Rainer Pete on 11-25-2023 Centrosomal nuclear Ab pattern IF Ql (S) [facility] Comment on above: Test not performed Serum midbody antibody titer by immunofluorescenceOrdered By: Rainer Pete on 11-25-2023 Midbody Ab IF (S) [Titer] [facility] Comment on above: Test not performed Serum multiple nuclear dot p attern antinuclear IgG antibody (TC) titer by immunofluoOrdered By: Rainer Pete on 11-25-2023 Multiple nuclear dots nuclear IgG pattern IF (S) [Titer] [facility] Comment on above: Test not performed Serum nuclear antibody detec tionOrdered By: Rainer Pete on 11-25-2023 Nuclear Ab Ql (S) Positive . [facility] Comment on above: Negative <1:80 Borde rline 1:80 Positive >1:80 Serum nucleolar nuclear anti body pattern titerOrdered By: Rainer Pete on 11-25-2023 Nucleolar nuclear Ab pattern (S) [Titer] [facility] Comment on above: Test not performed Serum or plasma complement C 4 measurement (mass/volume)Ordered By: Rainer Pete on 11-25-2023 Complement C4 [Mass/Vol] 35 mg/dL 12-38 [facility] Serum or plasma creatinine m easurement (mass/volume)Ordered By: Rainer Pete on 11-25-2023 Creatinine [Mass/Vol] 0.97 mg/dL 0.55-1.02 [facility] Comment on above: The validity of the calculated GFR & GFRAA in patients over 70 years has not been determined. Clinical correlation is essential. Serum or plasma thyroid stim ulating hormone (TSH) measurement (units/volume)Ordered By: Rainergerber Pete on 11-25-2023 TSH Qn 2.84 uIU/mL 0.358-3.74 [facility] Serum or plasma thyroperoxid ase antibody assay (units/volume)Ordered By: Rainer Pete on 11-25-2023 TPO Ab Qn [IU]/mL 0-34 [facility] Comment on above: Performed at: [address] [id number] Director: Alberto Eller PhD, Phone: [phone] at: - [facility] [id number] Director: Graciela Trevino MD, Phone: [phone] Serum or plasma urea nitroge n measurement (mass/volume)Ordered By: Rainer Pete on 11-25-2023 Urea nitrogen [Mass/Vol] 11 mg/dL 7-18 [facility] Serum or plasma uric acid me asurement (mass/volume)Ordered By: Rainer Pete on 11-25-2023 Urate [Mass/Vol] 4.1 mg/dL 2.6-6.0 [facility] Comment on above: The drugs N-Acetylcy steine and Metamizole may falsely depress this assay. Serum proliferating cell nuc lear antigen (PCNA) antibody titer by immunofluorescenceOrdered By: Rainer Pete on 11-25-2023 PCNA extractable nuclear Ab IF (S) [Titer] 1:160 . [facility] Comment on above: Proliferating Cell N uclear Antigen (PCNA) antibodies arespecific for SLE, however, the prevalence is low (2-5%).ICAP nomenclature: [id number] Serum smooth nuclear envelop e pattern antinuclear antibody (TC) titerOrdered By: Rainer Pete on 11-25-2023 Rim nuclear Ab pattern (S) [Titer] [facility] Comment on above: Test not performed Serum speckled nuclear antib tigist pattern titerOrdered By: Rainer Pete on 11-25-2023 Speckled nuclear Ab pattern (S) [Titer] [facility] Comment on above: Test not performed Thin prep Papanicolaou smear with manual screeningOrdered By: Rainer Pete on 11-25-2023 Thin prep Papanicolaou smear with manual screening 3.2 g/dL 3.2-5.0 [facility] Thin prep Papanicolaou smear with manual screening 12 U/L 15-37 [facility] Thin prep Papanicolaou smear with manual screening [facility] Comment on above: Test not performed Laboratory - Miscellaneous t estsOrdered By: Yara Romano on 10-04-2023 Service comment (Unsp spec) [Interp] Comment . [facility] Comment on above: Levels of Specific [...] 10-04-2023 Scallop Allergen <0.10 kU/L Class 0 [facility] Sesame Seed Allergen IgE Antibody 1.05 kU/L Class II [facility] Comment on above: Performed at: [address] [id number] Director: Graciela Trevino MD, Phone: [phone] Shrimp Allergen <0.10 kU/L Class 0 [facility] Serum black walnut IgE antib tigist assay (units/volume)Ordered By: Yara Romano on 10-04-2023 Black [place] IgE Qn (S) 0.22 kU/L Class 0/I [facility] Serum clam IgE antibody assa y (units/volume)Ordered By: Yara Romano on 10-04-2023 Clam IgE Qn (S) <0.10 kU/L Class 0 [facility] Serum codfish IgE antibody a ssay (units/volume)Ordered By: Yara Romano on 10-04-2023 Codfish IgE Qn (S) <0.10 kU/L Class 0 [facility] Serum corn IgE antibody assa y (units/volume)Ordered By: Yara Roamno on 10-04-2023 [place] IgE Qn (S) 0.67 kU/L Class II [facility] Serum cow milk IgE antibody assay (units/volume)Ordered By: Yara Romano on 10-04-2023 Cow milk IgE Qn (S) 0.54 kU/L Class I [facility] Serum egg white IgE antibody assay (units/volume)Ordered By: Yara Romano on 10-04-2023 Egg white IgE Qn (S) 0.20 kU/L Class 0/I [facility] Serum peanut IgE antibody as say (units/volume)Ordered By: Yara Romano on 10-04-2023 Peanut IgE Qn (S) 1.14 kU/L Class II [facility] Serum soybean IgE antibody a ssay (units/volume)Ordered By: Yara Romano on 10-04-2023 Soybean IgE Qn (S) 0.27 kU/L Class 0/I [facility] Serum wheat IgE antibody ass ay (units/volume)Ordered By: Yara Romano on 10-04-2023 Wheat IgE Qn (S) 0.45 kU/L Class I [facility] No Panel InformationOrdered By: MASSIMO LONGORIA on 08-13-2023 Follicle Stimulating Hormone 15.7 mIU/mL [facility] Comment on above: NORMAL REFERENCE RAN GES FEMALE FOLLICULAR 2.3 - 12.6 mIU/mL MID-CYCLE PEAK 5.2 - 17.5 mIU/mL LUTEAL 1.7 - 12.9 mIU/mL POST-MENOPAUSAL ON MHT 5.9 - 72.8 mIU/mL NOT ON MHT 12.7 - 132.2 mlU/mL MALE 0.7 - 10.8 mIU/mL No Panel InformationOrdered By: Oneil Narayanan on 05-27-2023 Ethyl Alcohol Level 7.0 mg/dL [facility] Comment on above: The serum:whole bloo d ethanol ratio is approximately 1.14and varies slightly with hematocrit. Medical Alcohol reference interval and critical value innon-tolerant individuals; 50 - 100 Impairment 100 Intoxication 100 - 250 Severe Poisoning 250 - 400 Deep/possible fatal coma Follitropin Qnon 11-27-2021 Follicle Stimulating Hormone 6.1 mIU/mL Normal [facility] Comment on above: Result Comment: ADUL T MALES: 1.3 TO 19.3 MIU/ML ADULT FEMALES: FOLLICULLAR: 3.9 TO 8.8 MIU/ML MIDCYCLE PEAK: 4.5 TO 22.5 MIU/ML LUTEAL: 1.8 TO 5.1 MIU/ML POSTMENOPAUSAL: 16.7 TO 114.0 MIU/ML Performed By: #### 1 [id number] #### [facility] [address] [place] [address] Cytology report Cyto stain.t hin prep Doc (Cvx/Vag)on 11-17-2021 HPV DNA Negative Normal Negative [facility] Comment on above: Performed By: #### 4 [id number] #### [facility] [address] [place] [address] Thinprep Pap [employer] Cytology report (cervical/vaginal) GLORIA MAYES ([id number] YRS F [id number] RM/BD ORDERING PHYSICIAN: ASTER LONGORIAESSION#:[id number] RESULT TRANSMITTED: 10/26/17 1709CYTOLOGY REPORT - THIN PREP TECHNIQUECLINICAL HISTORYLMP: NOT PROVIDEDHIGH RISK? NO? NOCOMMENT: HPVHR IF ASCUSSPECIMEN SOURCE:CERVICAL,ENDOCERVI PAVEL;VIALSTATEMENT OF SPECIMEN ADEQUACY:Specimen satisfactory for interpretation- Endocervical component absent.DIAGNOSIS:NEGATIVE FOR INTRAEPITHELIAL LESION OR MALIGNANCY. DCT:KL :DCT By: ANGELA FORD M.D. AT [facility] 10/26/17 (Electronic Signature)COMMENT:The [facility] of this test [facility]THIS SPECIMEN HAS BEEN ANALYZED BY THE THINPREP IMAGING SYSTEM([employer]),AN AUTOMATED IMAGING SYSTEM, WHICH ASSISTS THE LABORATORY IN EVALUATING CELLSON THINPREP PAP TEST. FOLLOWING AUTOMATED IMAGING TO DETECT CELLS OF INTEREST,SELECTED HARRIS FROM EVERY SLIDE ARE REVIEWED BY A SEC ACCOUNTANT. IFINDICATED, THE SLIDE IS REFERRED TO A PATHOLOGIST FOR FURTHER EVALUATION.THE PAP SMEAR IS A SCREENING TEST WITH AN IRREDUCIBLE FALSE-NEGATIVE RATE,THE CONSEQUENCES OF WHICH CAN BE MINIMIZED BY OBTAINING AN ANNUAL PAP SMEAR.FOOTNOTE ADDED ON 10/26/17 AT 1709 BY DISCERNEND OF REPORTEND OF REPORT Normal [facility] Vital Signs Date Time Vital Sign Value Performing Clinician Nydia henning 04-24-2025 12:50-0400 Body temperature 97.9 [degF] Dr. Krystal Kelly DO Work Phone: [facility] 04-24-2025 12:50-0400 Diastolic blood pressure 61 mm[Hg] Dr. Krystal Kelly DO Work Phone: [facility] 04-24-2025 12:50-0400 Heart rate 72 /min Dr. Krystal Kelly DO Work Phone: [facility] 04-24-2025 12:50-0400 Respiratory rate 16 /min Dr. Krystal Kelly DO Work Phone: [facility] 04-24-2025 12:50-0400 SaO2% (BldA) [Mass fraction] 97 % Dr. Krystal Kelly DO Work Phone: [facility] 04-24-2025 12:50-0400 Systolic blood pressure 91 mm[Hg] Dr. Krystal Kelly DO Work Phone: [facility] 04-24-2025 11:24-0400 Body height 159.[address] Krystal Kelly DO Work Phone: [facility] 04-24-2025 11:24-0400 Body mass index (BMI) [Ratio] 27.3 kg/m2 Dr. Krystal Kelly DO Work Phone: [facility] 04-24-2025 11:24-0400 Body weight [address] Krystal Kelly DO Work Phone: [facility] 05-28-2023 00:27-0400 Heart rate 76 /min [facility] 05-28-2023 00:27-0400 Respiratory rate 16 /min [facility] 05-28-2023 00:27-0400 SaO2% (BldA) [Mass fraction] 98 % [facility] 05-27-2023 20:58-0400 Body height 160.02 cm [facility] 05-27-2023 20:58-0400 Body mass index (BMI) [Ratio] 28.8 kg/m2 [facility] 05-27-2023 20:58-0400 Body temperature 98.6 [degF] [facility] 05-27-2023 20:58-0400 Body weight 73.9 kg [facility] 05-27-2023 20:58-0400 Diastolic blood pressure 60 mm[Hg] [facility] 05-27-2023 20:58-0400 Systolic blood pressure 103 mm[Hg] [facility] Encounters Encounter Date Encounter Type Care Provider Facility Start: 05-08-2025 End: 05-08-2025 Patient encounter procedure Carla VELAZQUEZ -[facility] Work Phone: Start: 05-08-2025 End: 05-08-[address] Krystal Kelly DO Work Phone: [facility] Start: 04-24-2025 Non-patient / Non-visit Matty Reich nd DO -[facility] Start: 04-24-2025 End: 04-24-2025 Admission to same day surgery center Matty Marcos DO -Endoscopy Work Phone: Start: 04-24-2025 End: 04-24-[address] Krystal Kelly DO Work Phone: [facility] Work Phone: Start: 04-02-2025 End: 04-02-[address] Krystal Kelly DO Work Phone: [facility] Work Phone: Start: 04-02-2025 End: 04-02-2025 Patient encounter procedure Carla Borja PA -Cat Scan [facility] Work Phone: Start: 04-02-2025 End: 04-02-2025 ambulatory Carla Borja Facility:[facility] Start: 02-25-2025 End: 02-25-[address] Krystal Kelly DO Work Phone: [facility] Work Phone: Start: 02-25-2025 End: 02-25-2025 Patient encounter procedure Carla VELAZQUEZ -Ultrasound, [facility] Work Phone: Start: 02-25-2025 End: 02-25-2025 ambulatory Carla Borja Facility:[facility] Start: 02-12-2025 End: 02-12-2025 Patient encounter procedure Carla VELZAQUEZ -[facility] Work Phone: Start: 02-12-2025 End: 02-12-[address] Krystal Kelly DO Work Phone: [facility] Work Phone: Start: 02-12-2025 End: 02-12-2025 ambulatory Carla Borja Facility:[facility] Start: 02-05-2025 End: 02-05-[address] Krystal Kelly DO Work Phone: [facility] Work Phone: Start: 02-05-2025 End: 02-05-[address] Krystal Kelly DO -Nuclear Medicine, [facility] Work Phone: Start: 02-05-2025 End: 02-05-2025 ambulatory Krystal Kelly Facility:[facility] Start: 08-09-2024 End: 08-09-2024 ambulatory MASSIMO LONGORIA Facility:[facility] Start: 12-20-2023 Telephone encounter Maricruz Flanagan MD Work Phone: Endocrinology Comment on above: Referral documentati on (Yara Romano CNP) Start: 11-25-2023 End: 11-25-2023 ambulatory [facility] Work Phone: Start: 11-25-2023 End: 11-25-2023 Patient encounter procedure [facility] Work Phone: Start: 10-04-2023 End: 10-04-2023 ambulatory [facility] Work Phone: Start: 10-04-2023 End: 10-04-2023 Patient encounter procedure [facility], [place] [facility] Start: 08-13-2023 End: 08-13-2023 Patient encounter procedure [facility] Work Phone: Start: 06-29-2023 End: 06-29-2023 ambulatory [facility] Work Phone: Start: 06-29-2023 End: 06-29-2023 Patient encounter procedure [facility]Outpatient Breast Imaging Work Phone: Start: 05-27-2023 End: 05-28-2023 Emergency department patient visit [facility]Emergency [facility] Work Phone: Start: 01-27-2023 End: 01-27-2023 ambulatory [facility] Work Phone: Start: 01-27-2023 End: 01-27-2023 Patient encounter procedure [facility] Start: 01-18-2023 End: 01-18-2023 Patient encounter procedure [facility] Start: 10-06-2022 ambulatory PCP PCP UNKNOW N PHYSICIAN PHYSICIAN [facility] Start: 01-12-2022 End: 01-12-2022 Patient encounter procedure [facility] Start: 11-27-2021 End: 11-27-2021 ambulatory PHYSICIAN [facility] Start: 11-18-2021 ambulatory MASSIMO LONGORIA [facility] Start: 11-18-2021 Encounter for gynecological examination (general) (routine) without abnormal findings MASSIMO LONGORIA [facility] Start: 11-17-2021 End: 11-17-2021 ambulatory PHYSICIAN [facility] Start: 12-23-2017 End: 12-23-2017 Ambulatory Marco Osorio Facility:[facility] Start: 10-22-2017 End: 10-22-2017 Ambulatory MASSIMO MOORMA Facility:[facility] rT Garibay Procedures Date Procedure Procedure Detail Performing [...] lesion snare tech EGD REMOVE LESION SNARE [facility] Start: 04-24-2025 Egd transoral biopsy single/multiple EGD BIOPSY SINGLE/MULTIPLE [facility] Start: 04-24-2025 Patient discharge [facility] Start: 11-07-2023 Depression Assessment Depression Ass essment [facility] Start: 10-04-2023 [facility] Start: 07-08-2023 Influenza vaccination Influenza Vacc ine (#1) [facility] Start: 2019 Shingrix Vaccine (1 of 2) May grix Vaccine (1 of 2) [facility] Start: 2014 Diabetes Screening Diabetes Screenin g [facility] Start: 2014 Lipid panel Lipid Screening [facility] Start: 2014 Screening for malign ant neoplasm of colon [facility] Start: 2009 Screening for malign ant neoplasm of breast Mammogram Screening [facility] Start: 1999 Screening for malign ant neoplasm of cervix HPV Testing [facility] Start: 1990 Screening for malign ant neoplasm of cervix Pap Testing [facility] Start: 1988 Urine microalbumin profile DTaP,Tdap,Td Vaccine (1 - Tdap) [facility] Start: 1987 Hepatitis C screening Hepatitis C Sc sofiya [facility] Start: 1987 HIV screening HIV Screening [facility] Start: 1969 Covid-19 Vaccine (#1) Covid-19 Vacci ne (#1) [facility] Start: 1969 Hepatitis B Vaccine (1 of 3 - 3-dose series) Hepatitis B Vaccine (1 of 3 - 3-dose series) [facility] Clam IgE Ab [Units/volume] in Serum [facility] Codfish IgE Ab [Units/volume] in Serum [facility] [place] IgE Ab [Units/volume] in Serum [facility] Cow milk IgE Ab [Units/volume] in Serum [facility] Egg white IgE Ab [Units/volume] in Serum [facility] Patient Education ED Concussion [facility] Work Phone: Patient referral [facility] Work Phone: Peanut IgE Ab [Units/volume] in Serum [facility] Scallop [facility] Sesame seed [facility] Shrimp IgE Ab [Units/volume] in Serum [facility] Soybean IgE Ab [Units/volume] in Serum [facility] US Gallbladder [facility] Wheat IgE Ab [Units/volume] in Serum [facility] Payers Date Payer Category Payer Private Health Insurance [id number] 2024 Self-pay [id number] 2024 Private Health Insurance [id number] 2017 Unknown 2016 Unknown [id number] 1969 Unknown [id number] 2.16. [id number] 1969 Unknown [id number] 2.16. [id number] 1969 Unknown [id number] 2.16.8 [id number] 1969 Unknown [id number] 2.16.84 0.1.077158.3.579.2.1143 Unknown [id number] Unknown [id number] 2.16.8 [id number] Unknown [id number] 2.16.8 40.1.444505.3.579.2.462 Unknown [id number] 2.16.8 40.1.419789.3.579.2.462 Unknown [id number] 2.16.8 40.1.147435.3.579.2.462 Unknown [id number] 2.16.8 40.1.548877.3.579.2.462 Unknown [id number] 2.16.8 40.1.849441.3.579.2.462 Unknown [id number] 2.16.8 40.1.376006.3.579.2.462 Unknown [id number] 2.16.8 40.1.786267.3.579.2.462 Unknown [id number] 2.16.8 40.1.590320.3.579.2.462 Social History Date Type Detail Facility Start: 03-13-2020 End: 05-27-2023 Tobacco smoking status NHIS Unknown if ever smoked [facility] Start: 07-01-2015 [facility] Start: 07-01-2015 None [facility] Start: 07-01-2015 Spouse/ Signif icant Other [facility] Start: 03-13-2020 Non-smoker [facility] Start: 1970 Sex Assigned At Female [facility] Start: 1970 Sex Assigned At Not on file [facility] Gender identity Not on file [facility] in Start: 05-27-2023 End: 04-22-2025 Tobacco smoking status NHIS Never smoked tobacco (finding) [facility] Start: 02-07-2025 End: 02-28-2025 Sex Female (finding) [facility] NEGATED: Highlighted row Not [facility] Goals Date Patient Goal Desired Activity /State Mental Status Date Assessment Result Facility 04-24-2025 Cognitive function Voice/Name [facility] Work Phone: Clinical Notes 12-20-2023 to 04-24-2025 Note Date & Type Note Facility 04-24-2025 History and physical note Note Date/Time April 24, 2025 11:24am [facility] Medical Records Department [address] [place] [address] History & Physical Exam 04/24/25 1122 MR#: [id number] Acct: [id number] Name: GLORIA MAYES Rep #:[id number] : 1970 55 From: Matty Friend DO PCP: Dr. Krystal Kelly, DO Status:REG [facility] Location: [place] [address] HPI - General General Date of Admission: 04/24/25 Date of Service: 04/24/25 Chief Complaint: Abdominal pain HPI Narrative Chief Complaint: epigastric pain [facility] admission 2014 with acute pancreatitis and duodenitis. [...] symptoms including protein drinks, tomatoes and strawberries. [facility] Medical History Wears glasses Depression Alcohol use Fatty liver Injury of head and neck Loss of consciousness Blackout Non-smoker History of stress test GERD (gastroesophageal reflux disease) Anxiety Home Medications ?Medication ?Instructions ?Recorded ?Last Taken ?Type escitalopram oxalate 20 mg tablet 20 mg PO QHS 0 Unknown History buspirone 5 mg tablet 5 mg PO BID 02/12/25 Unknown History mdwatkek-ikv-dammf acid 0.4 1 tab PO QDAY 02/12/25 [...] Krystal Kelly, ; Matty Rodríguez DO~ Signed [facility] Work Phone: 1(768) 100-681206-18-2025 Consult note [facility] Medical Records Department [address] [address] Anesthesia Postop Eval I 04/24/25 1243 MR#: [id number] Acct: [id number] Name: GLORIA MAYES Rep #:[id number] : 1970 55 From: Robles Nino PCP: Dr. Krystal Kelly DO Status:REG [facility] Y Race: C Location: [place] [address] Anesthesia: Postop Eval I Current Vital Signs [...] Robles Lyon Signature: Date CC: ~ Signed [facility]06-18-2025 Procedure note [facility] Medical Records Department [address] [place] [address] EGD Report MR#: [id number] Acct: [id number] Name: GLORIA MAYES Rep #:[id number] : 1970 55 From: Matty Rodríguez DO PCP: Dr. Krystal Kelly DO Status:REG [facility] Patient Name: Gloria Mayes Procedure Date: 04/24/2025 [...] the largest polyp removed entirely and obtain delivery representative biopsies from the remaining polyps. This approach helps determine the nature of the polyps (e.g., hyperplastic, adenomatous) and assess the risk of dysplasia or cancer. Further management, including surveillance or additional interventions, will depend on the polyp type and pathology results. Procedure Code(s): --- Professional --- 71922, Esophagogastroduodenoscopy, flexible, transoral; with removal of tumor(s), polyp(s), or other lesion(s) by snare technique 20115, 59,51, Esophagogastroduodenoscopy, flexible, transoral; with biopsy, single or multiple CPT copyright 2021 [employer]. All rights reserved. The codes documented in this report are preliminary and upon escort service attendant review may be revised to meet current compliance requirements. Matty Rodríguez DO 04/24/2025 12:40:22 PM This report has been signed electronically. Number of Addenda: 0 Note Initiated On: 04/24/2025 12:14 PM 04/24/25 1240 Date _ Matty Cardenas Signature: Date (if indicated) CC: Dr. Krystal Kelly DO; Matty Rodríguez DO ~ Date Dictated: 04/24/25 1214 Date Transcribed: Realtime Reporter: RF Signed [facility]06-18-2025 Procedure note [facility] Medical Records Department [address] [place] [address] Operative Report - CC Letter MR#: [id number] Acct: [id number] Name: GLOIRA MAYES Rep #:[id number] : 1970 55 From: Matty Rodríguez DO PCP: Dr. Krystal Kelly DO Status:REG [facility] 04/24/2025 Krystal Kelly [address] [facility] [place] [address] [place] [address] Re : Upper GI endoscopy procedure for [...] the largest polyp removed entirely and obtain delivery representative biopsies from the remaining polyps. This [...] ~ Date Dictated: 04/24/25 1214 Date Transcribed: Realtime Reporter: RF Signed [facility]06-18-2025 Consult note [facility] Medical Records Department [address] [place] [address] Pre-Anesthesia Evaluation 04/24/25 1204 MR#: [id number] Acct: [id number] Name: GLORIA MAYES Rep #:[id number] : 1970 55 From: Raymundo Gillespie MD PCP: Dr. Krystal Kelly DO Status:REG SDC Y Race: C Location: [place] [address] 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 Hx Hospitalization No 04/22/25 11:00 Any Problems [...] sips of water?: Yes PONV PONV - stainless steel finisher: PONV - stainless steel finisher Female Yes 04/22/25 11:00 HX of Motion [...] 04/24/25 11:24 Respiratory Assessment Respiratory Assessment - stainless steel finisher: Respiratory Tract Infection Hx - stainless steel finisher Hx Respiratory Tract Infection No 04/22/25 11:00 STOP Sleep Apnea STOP Sleep Apnea - stainless steel finisher: STOP Sleep Apnea - stainless steel finisher Hx Hypertension No 04/22/25 11:00 Hx Sleep [...] Tobacco Use History Tobacco Use 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: 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 Use 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 Tobacco Use Smoking Status Never smoker 04/22/25 11:00 Hx Tobacco Use No 04/22/25 11:00 Years Smoking Packs Smoked per Day Smoking Cessation Date was within the last 15 years Hx Smoking Cessation Date Hx Smoking Cessation Counseling Hematologic Medial History Hematologic Hx - stainless steel finisher: 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 Medical Records Department [address] [place] [address] History & Physical Exam 04/24/25 1122 MR#: [id number] Acct: [id number] Name: GLORIA MAYES Rep #:[id number] : 1970 55 From: Matty Friend DO PCP: Dr. Krystal Kelly DO Status:[facility] Location: [place] [address] HPI - General General Date of Admission: 04/24/25 Date of Service: 04/24/25 Chief Complaint: Abdominal pain HPI Narrative Chief Complaint: epigastric pain [facility] admission 2014 with acute pancreatitis and duodenitis. [...] symptoms including protein drinks, tomatoes and strawberries. [facility] Medical History Wears glasses Depression Alcohol use Fatty liver Injury of head and neck Loss of consciousness Blackout Non-smoker History of stress test GERD (gastroesophageal reflux disease) Anxiety Home Medications ?Medication ?Instructions ?Recorded ?Last Taken ?Type escitalopram oxalate 20 mg tablet 20 mg PO QHS 0 Unknown History buspirone 5 mg tablet 5 mg PO BID 02/12/25 Unknown History axxrldcc-ylw-qzwww acid 0.4 1 tab PO QDAY 02/12/25 [...] Krystal Kelly DO; Matty Rodríguez DO~ Signed [facility]06-18-2025 [facility] Records Department [address] [place] [address] History Physical Exam 04/24/25 1122 MR#: [id number] Acct: [id number] Name: GLORIA MAYES Rep #: [id number] : 1970 55 From: Matty Rodríguez DO PCP: Dr. Krystal Kelly, DO Status:[facility] Location: [place] [address] HPI - General General Date of Admission: 04/24/25 Date of Service: 04/24/25 Chief Complaint: Abdominal pain HPI Narrative Chief Complaint: epigastric pain [facility] admission 2014 with acute pancreatitis and duodenitis. [...] symptoms including protein drinks, tomatoes and strawberries. [facility] Medical History Wears glasses Depression Alcohol use Fatty liver Injury of head and neck Loss of consciousness Blackout Non-smoker History of stress test GERD (gastroesophageal reflux disease) Anxiety Home Medications ???Medication ???Instructions ???Recorded ???Last Taken ???Type escitalopram oxalate 20 mg tablet 20 mg PO QHS 03/13/20 Unknown His tory buspirone 5 mg tablet 5 mg PO BID 02/12/25 Unknown Histo ry tnxbwgck-xzt-bcywn acid 0.4 1 tab PO QDAY 02/12/25 [...] 0RF nausea and vomiting (more content not included)...[facility]05-29-2025 Radiology Diagnostic study note [facility] Imaging Services [address] [place], [place] [address] Abdomen/Pelvis WITH Contrast MR#: [id number] Acct: [id number] Name: GLORIA MAYES Rep #: [id number] : 1970 F 55 From: Gt Jensen MD PCP: Dr. Krystal Kelly, DO Status: REG CLI Study:Abdomen/Pelvis WITH Contrast Date of Ex am: 04/02/25 Exam# [id number] Ordering Dr: Carla Borja PROCEDURE: ABDOMEN/PELVIS WITH [...] lower chance of developing HCC. Reading Location: [id number] CC: Dr. Krystal Kelly DO; CAROLINE Miranda ~ Realtime Reporter: Signed [facility]04-21-2025 Radiology Diagnostic study note [facility] Imaging Services [address] [place] [address] [id number] Abdomen Limited MR#: [id number] Acct: [id number] Name: GLORIA MAYES Rep #: [id number] : 1970 F 54 From: Gt Jensen MD PCP: Dr. Krystal Kelly DO Status: REG CLI Study:Abdomen Limited Date of Exam: 02/06 12/01 Exam# [id number] Ordering Dr: Carla Borja PROCEDURE: ABDOMEN LIMITED [...] lobe suggestive of possible hemangioma. Reading Location: [facility] CC: Dr. Krystal Kelly DO; CAROLINE Miranda ~ Realtime Reporter: Signed [facility]04-08-2025 Evaluation note* Diagnosis Onset Date Resolution Status Admit Date Epigastric abdominal pain acute February 12, 2025 3:18pm Abdominal symptoms noneactive February 12, 2025 3:18pm [facility] Work Phone: 1(441) 938-890104-08-2025 Evaluation note* Diagnosis Onset Date Resolution Status Admit Date Epigastric abdominal pain acute February 12, 2025 3:18pm Abdominal symptoms noneactive February 12, 2025 3:18pm Epigastric abdominal pain acute April 24, 2025 11:07am Nausea & vomiting acute April 242024 11:07am [facility] Work Phone: 1(388) 233-296904-01-2025 Nuclear medicine Diagnostic study note [facility] Imaging Services [address] [place] [address] [id number] Gastric Emptying Study MR#: [id number] Acct: [id number] Name: GLORIA MAYES Rep #: [id number] : 1970 F 54 From: Gt Jensen MD PCP: Dr. Krystal Kelly DO Status: REG CLI Study:Gastric Emptying Study Date of Exam: 02/05/25 Exam# [id number] Ordering Dr: Parisa Kelly sa, DO PROCEDURE: [...] geometric mean was used to calculate a lyeq-elfzgwyl-ofyso. RADIOPHARMACEUTICAL: 1.1 mCi of technetium labeled sulfur colloid. FINDINGS: Percent activity remaining in stomach: 1 hour 55% % (normal 37-90%) NM/Gastric Emptying Study IMPRESSION: Normal gastric emptying examination. Reading Location: [id number] CC: Dr. Krystal Kelly, DO ~ Realtime Reporter: Signed [facility]02-13-2024 Miscellaneous Notes* Telephone Encounter - Rita Stone MA - 12/20/2023 2:14 PM EST Received referral documentation from Yara Romano, HEATHER No appt had been scheduled yet. documented in this encounterCincinnati [facility]rin[facility] Hospitalsult note Author Raymundo Gillespie [facility] Note Date/Time April 24, 2025 12:1 4pm [facility] Medical Records Department [address] [place] [address] Pre-Anesthesia Evaluation 04/24/25 1204 MR#: [id number] Acct: [id number] Name: GLORIA MAYES Rep #:[id number] : 1970 55 From: Raymundo Gillespie MD PCP: Dr. Krystal Kelly DO Status:REG SDC Y Race: C Location: [place] [address] 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 Hx Hospitalization No 04/22/25 11:00 Any Problems [...] sips of water?: Yes PONV PONV - stainless steel finisher: PONV - stainless steel finisher Female Yes 04/22/25 11:00 HX of Motion [...] 04/24/25 11:24 Respiratory Assessment Respiratory Assessment - stainless steel finisher: Respiratory Tract Infection Hx - stainless steel finisher Hx Respiratory Tract Infection No 04/22/25 11:00 STOP Sleep Apnea STOP Sleep Apnea - stainless steel finisher: STOP Sleep Apnea - stainless steel finisher Hx Hypertension No 04/22/25 11:00 Hx Sleep [...] Tobacco Use History Tobacco Use 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: Tobacco Use 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 Tobacco Use Smoking Status Never smoker 04/22/25 11:00 Hx Tobacco Use No 04/22/25 11:00 Years Smoking Packs Smoked per Day Smoking Cessation Date was within the last 15 years Hx Smoking Cessation Date Hx Smoking Cessation Counseling Hematologic Medial History Hematologic Hx - stainless steel finisher: 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 Hx of Blood Transfusion No 04/22/25 11:00 [...] confused, unrespo /Reproduction History /Reproductive 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: /Reproductive Hx- stainless steel finisher Hx Now No 04/22/25 11:00 Gestational Age [...] mg PO BID 02/12/25 5 06:15 History tpqfeqyu-eya-nrjvq acid 0.4 1 tab PO QDAY 02/12/25 [...] MD Cosigner Signature: Date CC: ~ Signed [facility] Work Phone: Consult note Author Robles Nino [facility] Note Date/Time April 24, 2025 12:4 4pm [facility] Medical Records Department [address] [place] [address] Anesthesia Postop Eval I 04/24/25 1243 MR#: [id number] Acct: [id number] Name: GLORIA MAYES Rep #:[id number] : 1970 55 From: Robles Nino PCP: Dr. Krystal Kelly, DO Status:REG SDC Y Race: C Location: [place] [address] Anesthesia: Postop Eval I Current Vital Signs [...] Robles Lyon Signature: Date CC: ~ Signed [facility] Work Phone: Evaluation noteNo assessment information available [facility] Work Phone: Reason for referral (narrative)No reason for referral information availableWOhioHealth [facility] Work Phone: Summary Purpose Family History No [...] March 13, 2020 12 :47pm Power of Consumer Services Advisor No March 13, 2020 12:47pm Advance Directive Response Recorded Date/ Time Advance Directives No July 03, 2015 3:53am Living Will No May 27, 2023 9:02pm Power of Consumer Services Advisor No May 27 9:02pm Advance Directive Response Recorded Date/ Time Advance Directives No July 03, 2015 2:53am Living Will No May 27, 2023 8:02pm Power of Consumer Services Advisor No May 27 8:02pm Advance Directive Response Recorded Date/ Time Advance Directives No July 03, 2015 3:53am Advance Directive Response Recorded Date/ Time Do you have a Healthcare Power of Consumer Services Advisor? No April 22, 2025 11:00am Advance Directives [...] section and content) DATE CREATED AUTHOR 04/28/2018 [facility] DATE CREATED AUTHOR AUTHOR'S ORGANIZ ATION 05/02/2018 [facility] DATE CREATED AUTHOR AUTHOR'S ORGANIZ ATION 11/29/2021 [facility] DATE CREATED AUTHOR AUTHOR'S ORGANIZ ATION 10/07/2022 [facility] DATE CREATED AUTHOR AUTHOR'S ORGANIZ ATION 12/22/2023 [facility] DATE CREATED AUTHOR AUTHOR'S ORGANIZ ATION 05/11/2025 [facility] Goals (unrecognized section and content) Goals [...] Kelly DO Family Provider Active Yara Romano RAILWAY SIGNAL OPERATOR-C Primary Care Provider Active Team Status: Inactive Member Role Status Dates Yara Romano RAILWAY SIGNAL OPERATOR-C Primary Care Provider, Attending P rovider Active Team Status: Inactive Member Role Status Dates Yara Romano RAILWAY SIGNAL OPERATOR-C Primary Care Provider Active Dr. Rainer Pete [...] or prosecute any alcohol or drug abuse patient.[facility] Reason for Visit (unrecogniz ed section [...] BE BASED ON THE PRIMARY CLINICAL RECORDS. [facility]. provides no warranty or guarantee of the accuracy or completeness of information in this document.
[2025-08-23 17:57] LABS: Free T3 2.8 pg/mL (2.18-3.98)
[2025-08-25 07:07] LABS: PROGESTERONE 0.1 ng/mL (.)
[2025-08-28 12:08] LABS: Testosterone, % Free 1.14 % (0.50-2.80); Testosterone, Free 0.24 ng/dL (0.10-0.85)
== END | disposition home or self-care (01) ==
LOC: LAB 16:16
PROVIDERS: PCP Family Medicine; Referring Provider Family Medicine; Visit Provider Family Medicine
DX: E03.9 Hypothyroidism, unspecified (principal); N95.9 Unspecified menopausal and perimenopausal disorder; R53.83 Other fatigue; Z51.81 Encounter for therapeutic drug level monitoring
CPT/HCPCS: 36415; 82670; 84144; 84402; 84403; 84439; 84443; 84481; 86376; 86800